=== PATIENT | female | born 1935 | race Caucasian/White ===

== ENCOUNTER 2018-04-10 14:59 | Emergency (ER) | payer MEDICARE, MEDICAID ==
--- NOTE | 2018-04-10 15:53 | RAD ---
HISTORY: Choking COMPARISONS: August 25, 2014 VIEWS: 4: Frontal dual-energy and lateral views of the chest. FINDINGS: CARDIOMEDIASTINAL SILHOUETTE: The cardiomediastinal silhouette is normal. TRAVIS: The travis are normal. PLEURA: The costophrenic angles are sharp. No pleural abnormalities are noted. LUNG PARENCHYMA: The lungs are clear. ABDOMEN: The upper abdomen is clear. There is no subphrenic gas. BONES AND SOFT TISSUES: Degenerative changes are noted along the spine. OTHER: None. IMPRESSION: NO ACTIVE CARDIOPULMONARY DISEASE.
--- NOTE | 2018-04-10 15:54 | ED ---
Respiratory - HPI Summary HPI Summary: Patient is an 83-year-old who presents emergency department after a choking episode on was wasabi just prior to arrival. He shouldn't caregiver who is present states that patient has poor vision and accidentally put a spoonful of wasabi in her mouth that they had with lunch. Caregiver notes she spit it out but started coughing, sweating, and lips turned blue. Her symptoms quickly resolved. In the ER she is back at baseline and has no complaints. Symptoms are mild in severity. No current modifying factors. - History of Current Complaint Chief Complaint: EDGeneral Stated Complaint: CHOKING Time Seen by Provider: 04/10/18 15:16 Hx Obtained From: Patient, Family/Salt Cutter Pain Intensity: 0 - Allergy/Home Medications Allergies/Adverse Reactions: Allergies Allergy/AdvReac Type Severity Reaction Status Date / Time MS Clindamycin [Clindamycin] Allergy Mild Hives Verified 04/10/18 15:16 MS Sulfamethoxazole Allergy Mild Hives Verified 04/10/18 15:16 w/Trimethoprim [From Bactrim] Penicillins Allergy Hives Verified 04/10/18 15:46 PMH/Surg Hx/FS Hx/Imm Hx Previously Healthy: Yes Endocrine/Hematology History: Reports: Hx Diabetes - IDDDM, Hx Thyroid Disease - Hypothyroid Denies: Hx Sickle Cell Disease, Hx Unexplained Bleeding Cardiovascular History: Reports: Hx Angina, Hx Hypercholesterolemia, Hx Hypertension - WELL CONTROLLED WITH MEDICATION Denies: Hx Auto Implanted Cardiovert Defib, Hx Cardiac Arrest, Hx Pacemaker/ ICD Respiratory History: Reports: Hx Pneumonia Denies: Hx Asthma, Hx Chronic Obstructive Pulmonary Disease (COPD), Hx Seasonal Allergies, Hx Sleep Apnea, Other Respiratory Problems/Disorders History: Denies: Hx Renal Disease, Other Problems/Disorders Musculoskeletal History: Reports: Hx Arthritis - bilateral legs below hips, Hx Gout, Hx Tendonitis Denies: Hx Osteoporosis Sensory History: Reports: Hx Cataracts, Hx Vision Problem, Hx Hearing Aid Denies: Hx Contacts or Glasses Opthamlomology History: Reports: Hx Cataracts, Hx Vision Problem Denies: Hx Contacts or Glasses Neurological History: Reports: Hx Nerve Disease, Hx Seizures Denies: Hx Developmental Delay, Hx Migraine, Hx Spinal Cord Injury, Other Neuro Impairments/Disorders Psychiatric History: Denies: Hx Panic Disorder - Surgical History Surgery Procedure, Year, and Place: Ear surgeries, 3 on left, 1 on right-OVER 40 YEARS AGO STATES ( NO MRIs UNLESS OP NOTE CAN BE OBTAINED- {SS}). Left knee surgery. Appendectomy. Tubal ligation. 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 Hx Anesthesia Reactions: No Infectious Disease History: No Infectious Disease History: Denies: Hx Hepatitis, Hx Human Immunodeficiency Virus (HIV), Hx Shingles, Hx Tuberculosis, Traveled Outside the [place] in Last 30 Days - Social History Occupation: Retired Lives: With Family Alcohol Use: None Substance Use Type: Reports: None Smoking Status (MU): Former Smoker Review of Systems Cardiovascular: Negative Negative: Palpitations, Chest Pain Respiratory: Negative Negative: Shortness Of Breath, Cough Gastrointestinal: Negative Negative: Abdominal Pain, Vomiting, Nausea Neurological: Negative All Other Systems Reviewed And Are Negative: Yes Physical Exam Triage Information Reviewed: Yes Vital Signs On Initial Exam: Initial Vitals Temp Pulse Resp BP Pulse Ox 98.6 F 78 18 135/74 98 04/10/18 15:12 04/10/18 15:12 04/10/18 15:12 04/10/18 15:12 04/10/18 15:12 Vital Signs Reviewed: Yes Appearance: Positive: Well-Appearing - Pt. sitting in chair in NAD. Pleasant. Caregiver and family present. Skin: Positive: Warm, Dry Head/Face: Positive: Normal Head/Face Inspection Eyes: Positive: Normal, EOMI Neck: Positive: Supple Respiratory/Lung Sounds: Positive: Clear to Auscultation, Breath Sounds Present Cardiovascular: Positive: Normal, RRR Neurological: Positive: Normal, CN Intact II-III Psychiatric: Positive: Affect/Mood Appropriate Diagnostics - Vital Signs Vital Signs Temp Pulse Resp BP Pulse Ox 04/10/18 15:12 98.6 F 78 18 135/74 98 - Laboratory Lab Statement: Any lab studies that have been ordered have been reviewed, and results considered in the medical decision making process. Disposition - Course Course Of Treatment: Pt. presenting after having a choking episode on wasabi. She is back to baseline in the ER and has no complaints. VS are stable. Did obtain CXR to evaluate for possible aspiration or FB. Xray is negative for acute findings. Pt. was able to drink water without difficulty. Will dc home stable. To return to ER if sxs change or worsen. - Diagnoses Provider Diagnoses: Choking episode Discharge - Sign-Out/Discharge Documenting (check all that apply): Patient Departure - Discharge Plan Condition: Good Disposition: HOME Referrals: Juwan Mckeon MD [Primary Care Provider] - Additional Instructions: Follow up with PCP as needed Return to ER if symptoms change or worsen - Billing Disposition and Condition Condition: GOOD Disposition: Home
[2018-04-10 16:26] VITALS: BP 122/54
== END 2018-04-10 16:25 | disposition home or self-care (01) ==
LOC: ED 14:59
DX: R09.89 Other specified symptoms and signs involving the circulatory and respiratory systems (principal); Z87.891 Personal history of nicotine dependence; Z88.0 Allergy status to penicillin; Z88.2 Allergy status to sulfonamides; Z88.3 Allergy status to other anti-infective agents
CPT/HCPCS: 71046; 99282

== ENCOUNTER 2019-04-06 11:32 | Inpatient (IN) | payer MEDICARE, MEDICAID ==
--- NOTE | 2019-04-06 11:54 | ED ---
Neurological HPI - HPI Summary HPI Summary: This patient is an 84 year old F w a hx of DM, seizures, and arthritis BIBA to ED via EMS with a chief complaint of slurred speech since last night worsening this morning. Patient has fallen three times in the past two days. Patient states she feels weak and that her legs giving out and feeling weak. Patient AAOX3 but earlier thought today is Sunday, but it is Sunday. Patient reports paraspinal neck pain and BLE pain 2/2 arthritis. Normally ambulates with a walker. She has a home care physical therapist 8 hours of the day that helps her out. Patient denies cough, fever, abdominal pain, headache, blurry vision. - History of Current Complaint Chief Complaint: EDWeakness Stated Complaint: FALL WEAKNESS, Hx Obtained From: Patient, Family/Public Opinion Survey Taker Onset/Duration: Started days ago - Last night, Still Present, Worse Since Timing: Constant Pain Intensity: 0 Pain Scale Used: 0-10 Numeric Character: Weak, Motor Weakness, Impaired Speech Aggravating: Nothing Alleviating: Nothing Associated Signs and Symptoms: Positive: Weakness, Impaired Speech, Neck Pain/ Stiffness. Negative: Headache, Fever - Allergy/Home Medications Allergies/Adverse Reactions: Allergies Allergy/AdvReac Type Severity Reaction Status Date / Time clindamycin Allergy Hives Verified 04/06/19 12:48 Penicillins Allergy Hives Verified 04/10/18 15:46 sulfamethoxazole Allergy Hives Verified 04/06/19 12:48 Home Medications: Home Medications Acetaminophen [Acetaminophen Extra Strength] 500 mg PO Q6H PRN 04/06/19 [ History Confirmed 04/06/19] Ascorbic Acid TAB* [Vitamin C TAB*] 500 mg PO DAILY 04/06/19 [History Confirmed 04/06/19] Calcium Carbonate/Vitamin D3 [Calcium Carbonate/Vitamin] 1 tab PO BID 04/06/19 [ History Confirmed 04/06/19] Cholecalciferol TAB* [Vitamin D TAB*] 2,000 units PO DAILY 04/06/19 [History Confirmed 04/06/19] PMH/Surg Hx/FS Hx/Imm Hx Endocrine/Hematology History: Reports: Hx Diabetes - IDDDM, Hx Thyroid Disease - Hypothyroid Denies: Hx Sickle Cell Disease, Hx Unexplained Bleeding Cardiovascular History: Reports: Hx Angina, Hx Hypercholesterolemia, Hx Hypertension - WELL CONTROLLED WITH MEDICATION Denies: Hx Auto Implanted Cardiovert Defib, Hx Cardiac Arrest, Hx Pacemaker/ ICD Respiratory History: Reports: Hx Pneumonia Denies: Hx Asthma, Hx Chronic Obstructive Pulmonary Disease (COPD), Hx Seasonal Allergies, Hx Sleep Apnea, Other Respiratory Problems/Disorders History: Denies: Hx Renal Disease, Other Problems/Disorders Musculoskeletal History: Reports: Hx Arthritis - bilateral legs below hips, Hx Gout, Hx Tendonitis Denies: Hx Osteoporosis Sensory History: Reports: Hx Cataracts, Hx Vision Problem, Hx Hearing Aid Denies: Hx Contacts or Glasses Opthamlomology History: Reports: Hx Cataracts, Hx Vision Problem Denies: Hx Contacts or Glasses Neurological History: Reports: Hx Nerve Disease, Hx Seizures Denies: Hx Developmental Delay, Hx Migraine, Hx Spinal Cord Injury, Other Neuro Impairments/Disorders Psychiatric History: Denies: Hx Panic Disorder - Surgical History Surgery Procedure, Year, and Place: Ear surgeries, 3 on left, 1 on right-OVER 40 YEARS AGO STATES ( NO MRIs UNLESS OP NOTE CAN BE OBTAINED- {SS}). Left knee surgery. Appendectomy. Tubal ligation. 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 Hx Anesthesia Reactions: No Infectious Disease History: No Infectious Disease History: Denies: Hx Hepatitis, Hx Human Immunodeficiency Virus (HIV), Hx Shingles, Hx Tuberculosis, Traveled Outside the [place] in Last 30 Days - Family History Known Family History: Positive: Cardiac Disease, Diabetes, Other - Cancer - Social History Alcohol Use: None Hx Substance Use: No Substance Use Type: Reports: None Hx Tobacco Use: Yes Smoking Status (MU): Former Smoker Review of Systems Negative: Fever Negative: Blurred Vision Negative: Cough Negative: Abdominal Pain Musculoskeletal: Other - Neck pain Positive: Weakness, Slurred Speech. 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 (-) JVD, (-) Stridor, (-) Nuchal rigidity Cardio: Rhythm regular, rate normal, Heart sounds normal; Intact distal pulses; Radial pulses are 2+ and symmetric. (-) Murmur Pulmonary/Chest wall: Effort normal. (-) Respiratory distress, (-) Wheezes, (-) Rales Abd: Soft, (-) tenderness, (-) Distension, (-) Guarding, (-) Rebound Musculoskeletal: paraspinal and midline C-spine tenderness, no TL-spine tenderness Lymph: (-) Cervical adenopathy Neuro: Alert, Oriented x3, dysarthria otherwise CN 2-12 grossly intact, BUE BLE 5/5 strength, SILT. Gait deferred. Psych: Mood and affect Normal GCS: 15 Triage Information Reviewed: Yes Vital Signs On Initial Exam: Initial Vitals Temp Pulse Resp BP Pulse Ox 98.5 F 101 16 154/66 98 04/06/19 11:38 04/06/19 11:38 04/06/19 11:38 04/06/19 11:38 04/06/19 11:38 Vital Signs Reviewed: Yes Diagnostics - Vital Signs Vital Signs Temp Pulse Resp BP Pulse Ox 04/06/19 11:38 98.5 F 101 16 154/66 98 - Laboratory Result Diagrams: 04/06/19 12:32 04/06/19 12:32 Lab Statement: Any lab studies that have been ordered have been reviewed, and results considered in the medical decision making process. - Radiology CXR Radiology Interpretation Completed By: Radiologist Summary of Radiographic Findings: Stigmata of obstructive lung disease. No traumatic injury or acute pulmonary or cardiac process evident. Dr. Lomas has reviewed this radiology report. Pelvix XR Radiology Interpretation Completed By: Radiologist Summary of Radiographic Findings: Negative for fracture. Dr. Lomas has reviewed this radiology report. Lumbar XR Radiology Interpretation Completed By: Radiologist Summary of Radiographic Findings: Negative for lumbar sacral spine fracture. Dr. Lomas has reviewed this radiology report. Thoracic XR Radiology Interpretation Completed By: Radiologist Summary of Radiographic Findings: No radiographic evidence for traumatic injury of the thoracic lumbar junction. Dr. Lomas has reviewed this radiology report. - CT Brain CT Interpretation Completed By: Radiologist Summary of CT Findings: 1. Involutional change and stigmata of chronic small vessel ischemic disease. 2. No traumatic injury or acute intracranial process evident. Dr. Lomas has reviewed this radiology report. C-spine CT Interpretation Completed By: Radiologist Summary of CT Findings: No CT evidence for traumatic cervical spine injury. Dr. Lomas has reviewed this radiology report. - EKG 1145 Cardiac Rate: NL - 98 BPM EKG Rhythm: Sinus Rhythm ST Segment: Normal Ectopy: None Summary of EKG Findings: An EKG at 1145 reveals normal sinus rhythm 98 BPM, nml axis, nml intervals. No STEMI. No acute changes. NIH Scale - NIH Scale Level of Consciousness: Alert/Keenly Responsive Ask Patient the Month and His/Her Age: Both Correct Ask Pt to Open/Close Eyes and Press Setter/Release Non-Paretic Hand: Both Correctly Best Gaze (Only Horizontal Eye Movement): Normal Visual Field Testing: No Visual Loss Facial Paresis-Pt to Smile & Close Eyes or Grimace Symmetry: Normal/Symmetrical Motor Function - Right Arm: No Drift-Holds 10 Seconds Motor Function - Left Arm: No Drift-Holds 10 Seconds Motor Function - Right Leg: No Drift-Holds 10 Seconds Motor Function - Left Leg: No Drift-Holds 10 Seconds Limb Ataxia-Must be out of Proportion to Weakness Present: Absent Sensory (Use Pinprick to Test Arms/Legs/Trunk/Face): Normal Best Language (Describe Picture, Name Items): No Aphasia Dysarthria (Read Several Words): Slurs Some Words Extinction and Inattention: No Abnormality Total Score: 1 Re-Evaluation - Re-Evaluation First Eval Re-Evaluation Time: 14:10 Comment: Discussed results with caregiver and patient, patient will be admitted to [facility]. Patient understands and agrees with this plan. Course/Dx - Course Course Of Treatment: 84-year-old female with history of diabetes who presents with weakness and dysarthria. NIH stroke scale of 1 for dysarthria, last known normal greater than 12 hours ago. We'll check a head CT as well as labs. We will also check a CT of the cervical spine given reported neck pain, and thoracic and lumbar spine because of her falls. Currently alert and oriented 3. - Diagnoses Provider Diagnoses: Falls, Weakness, Dysarthria - Physician Notifications Discussed Care Of Patient With: Elton Gomez Time Discussed With Above Provider: 14:15 Instructed by Provider To: Other - Discussed patient case with Dr. Gomez, neuro, who agrees with plan for MRI and stroke workup. At 1440 discussed patient case with Dr. Blanchard, hospitalist, who accepted the patient for admission to [facility]. Discharge - Sign-Out/Discharge Documenting (check all that apply): Patient Departure - Admit by Dr. Blanchard Patient Received Moderate/Deep Sedation with Procedure: No - Discharge Plan Condition: Fair Disposition: ADMITTED TO [facility] - Billing Disposition and Condition Condition: FAIR Disposition: Admitted to [facility] - Attestation Statements Document Initiated by Brianibe: Yes Documenting Scribe: Yasmani Ramírez Provider For Whom Brianibe is Documenting (Include Credential): Magda Lomas MD Scribe Attestation: IYasmani, scribed for Magda Lomas MD on 04/06/19 at 2048. Scribe Documentation Reviewed: Yes Provider Attestation: The documentation as recorded by the Yasmani tyson accurately reflects the service I personally performed and the decisions made by me, Magda Lomas MD Status of Scribe Document: Viewed
--- OUTSIDE RECORDS SUMMARY | 2019-04-06 11:58 | XMS REPORT | Continuity of Care Document ---
:1935 External Reference #:[id number] Author Name Yanci Gallagher Care Team Providers Name Role Phone Juwan Mckeon III, MD Primary Care Physician Unavailable Payers Date Identification Numbers Payment Provider Subscriber Effective: 2012 Policy Number: [id number] Medicare Ken Wandy PayID: [id number] [address] [place] [address] Effective: 2012 Policy Number: [id number] Medicaid Ken Wandy PayID: [id number] [address] [place] [address] Problems Active Problems Provider Date Type 2 diabetes mellitus Juwan Mckeon M.D. Onset: 06/11/2012 Hypothyroidism Juwan Mckeon M.D. Onset: 06/11/2012 Pure hypercholesterolemia Juwan Mckeon M.D. Onset: 06/11/2012 Hearing loss Juwan Mckeon M.D. Onset: 07/12/2012 Total urinary incontinence Juwan Mckeon M.D. Onset: 01/13/2013 Family History Date Family Member(s) Observation Comments Father due to Accidental () - drowned age 38 Mother due to Gastric Cancer () - age 59; ? cancer vs heart attack First Brother due to Lung Cancer () - age 45 Social History Type Date Description Comments Sex Unknown ETOH Use 06/11/2013 Denies alcohol use Tobacco Use Start: Unknown End: Patient is a former 1/4 ppd for 10 yrs; Unknown smoker quit age 27 Smoking Status Reviewed: 07/09/19 Patient is a former 1/4 ppd for 10 yrs; smoker quit age 27 Exercise Exercises regularly walks on [facility]; uses a Type/Frequency wheeled walker for stability Allergies, Adverse Reactions, Alerts Active Allergies Reaction Severity Comments Date Bactrim vomiting 06/11/2012 Clindamycin rash 06/11/2012 Penicillins 10/24/2013 Medications Active Medications SIG Qnty Indications Ordering Date Provider Lamont Flextouch Juwan E. 03/04/2019 Sergey Mckeon 200Unit/ML Solution Pen-Inject Duloxetine HCL 1 by mouth every 30caps E11.9 Juwan E. 03/04/2019 60mg day Sergey Mckeon Caps DR Hernandez Chair Lift 1units Juwan E. 01/31/2019 Sergey Mckeon Tresiba Flextouch 52 units in the in 15ml Juwan E. 10/01/2017 the morning;please Sergey Mckeon 100Unit/ML Solution call when rx is Pen-Inject ready [phone] Calcium take 2 tablets by 60tabs Juwan E. 09/19/2017 Carbonate-Vitamin D mouth once daily Sergey Mckeon [id number] Tablets Famotidine 1 by mouth every 30tabs K21.9 Juwan E. 04/16/2017 40mg day Sergey Mckeon Tablets Walker 4 wheeled walker Juwan E. 04/13/2017 with seat, hand Sergey Mckeon brakes Ra Alcohol Swabs once or twice a day 100units Juwan E. 08/23/2016 70% with home sugar Sergey Mckeon Pads checks as directed Lisinopril 1 by mouth every 30tabs E11.9 Juwan E. 08/17/2016 10mg day Sergey Mckeon Tablets Tylenol as needed Juwan E. 02/02/2015 325mg Tablets Sergey Mckeon Disposable Underpads use as needed for 198units Juwan E. 10/15/2014 Super Size 30"X36" incontinence Sergey Mckeon 30"X36" [facility] Freestyle Lancets daily and as needed 100units Juwan E. 04/16/2014 dx 250.00 Sergey Mckeon [facility] Ra Vitamin D-3 1 by mouth weekly, 4caps Juwan Zamora 01/27/2014 take on sunday Sergey Mckeon 2000Unit Capsules BD U/F Short Pen use as directed 100units Ghada Rogers MD 01/22/2014 [id number] Freestyle Lancet for use with E11.9 Juwan Zamora 01/14/2014 Page Freestyle lancets Sergey Mckeon Simvastatin 1 by mouth every 90tabs Juwan Zamora 01/14/2014 40mg night at bedtime Sergey Mckeon Tablets Calcium 600+D High take 2 tablets by 60tabs Juwan Zamora 01/05/2014 Potency mouth daily Sergey Mckeon [id number] Tablets Sudafed Pe Sinus take as directed Juwan Zamora 12/02/2013 Pressure+ Pain Sergey Mckeon Maximum Strength 5-325mg Tablets [place] 1units Juwan Zamora 11/10/2013 Container/Half Sergey Mckeon Gallon 1/2 Gal Misc Triamcinolone apply to affected 15gm 705.81 Juwan Zamora 10/24/2013 Acetonide area qd-qid Sergey Mckeon 0.1% Cream Depend Protective use as needed dx 68units 788.30 Juwan Zamora 07/17/2013 Underwear Large code: 788.37 Total Sergey Mckeon Female Misc Urinary incontience Levothyroxine Sodium take 1 tablet once 90tabs Juwan Zamora 03/05/2013 daily Sergey Mckeon 50mcg Tablets Regular Four Wheel 1units Juwan Zamora 01/14/2013 Enrique Mckeon M.D. Metformin HCL ER take 2 tablet by 60tabs Juwan Zamora 11/21/2012 mouth once daily Sergey Mckeon 500mg Tablets ER 24HR Insulin as directed 100units Juwan Zamora 09/04/2012 Syringe/1ML/31G X Sergey Mckeon 5/16" 31G X 5/16" 1 ML Misc Pen [place] use with lantus 50units Brittany Miriam, 07/02/2012 31GX5/16" subq qday N.P. 31G X 8 mm Misc Freestyle Lite Blood check fingerstick 1units E11.9 Jose Alejandro Marquez 2011 Glucose Monitoring daily Sergey Petty,FACP System Device Freestyle Lite Test use as directed 100units Juwan Zamora 06/11/2012 Sergey Mckeon Strip Vitamin C 1 by mouth every Unknown 500mg day Capsules Vitamin B-12 1 by mouth every Unknown 500mcg day Tablets History Medications Doxycycline Hyclate 1 by mouth twice a 14tabs Juwan Zamora 02/17/2018 - 100mg day for 7 days Sergey Mckeon 04/22/2018 Tablets Duloxetine HCL take 1 capsule by 30caps E11.9 Juwan Zamora 02/14/2018 - 30mg Caps mouth daily Sergey Mckeon 03/04/2019 DR David Mckeon one by nouth twice 6tabs Juwan Zamora 07/16/2017 - 250mg Tablets daily for 7 days Sergey Mckeon 08/28/2017 [facility] Juwan Zamora 04/19/2017 - 250mg Tablets daily for 7 days Sergey Mckeon 08/28/2017 Butalbital/Acetaminoph 1-2 tabs every 4 30tabs R51 Juwan Zamora 04/16/2017 - en/Caffeine hrs; max 6 tabs a Sergey Mckeon 08/28/2017 50-325-40mg day Tablets Zyrtec Allergy 1 by mouth every 30tabs J00 Dimitry Carballo, 08/12/2015 - 10mg day for the next [employer] 08/26/2015 Tablets 3-4 weeks, then as needed Guaifenesin ER 1 by mouth twice a 14tabs R05 Dimitry Carballo 08/12/2015 - 600mg day [employer] 08/19/2015 Tablets ER 12HR Lisinopril 1 by mouth every 90tabs E11.9 Thien 08/09/2015 - 5mg Tablets day Sergey Dimas 08/17/2016 Azithromycin 2 tabs by mouth on 6tabs J02.9 Dimitry Carballo 07/05/2015 - 250mg day 1; 1 tab by [employer] 07/10/2015 Tablets mouth every day on days 2-5 Nystatin swish and swallow 225ml B37.0 Dimitry Carballo, 07/05/2015 - [id number] 5ml four times a [employer] 07/15/2015 Suspension day x's 10 days Ciprofloxacin HCL apply 3 drops in 5cc Juwan Zamora 03/09/2015 - 0.3% effected eye bid x Sergey Mckeon 12/06/2015 Solution 7 days Calcium High Potency + Take 2 Tablets 60tabs Brittany 07/21/2014 - Vitamin D Daily [facility], 02/15/2017 [id number] N.P. Tablets Alcohol Swabs use as directed for [place] Zamora 03/11/2014 - Pads dm testing Sergey Mckeon 08/23/2016 Vitamin D-1000 Maximum 1 by mouth every 90tabs Juwan Zamora 01/14/2014 - Strength day Sergey Mckeon 07/01/2014 1000Unit Tablets Calcium 500+D High by mouth twice a 60tabs Brittany 01/05/2014 - Potency day [facility], 01/05/2014 [id number] N.P. Tablets Azithromycin 2 tabs po qd x1 6tabs 466.0 Brittany 12/16/2013 - 250mg day, 1 tab po qd x [facility], 01/14/2014 Tablets 4 days N.P. Fluticasone Propionate 2 spray in each 1bottle 466.0 Brittany 12/16/2013 - nostril in in the [facility], 07/01/2014 50mcg/Act Suspension morning N.P. Benadryl 1 tab prn qd 30tabs Juwan Zamora 05/27/2013 - 25mg Tablets Sergey Mckeon 07/17/2013 Simvastatin 1 po qhs 90tabs Juwan Zamora 03/05/2013 - 40mg Tablets Sergey Mckeon 07/17/2013 Diabetic Shoes And Fit appropriately Juwan Zamora 02/12/2013 - Inserts Sergey Mckeon 08/17/2016 Etoh Prep Pads for DM testing [place] Zamora 01/24/2013 - Sergey Mckeon 03/11/2014 Freestyle Lite Test use as directed qd 100[place] Zamora 01/24/2013 - Strip or prn Sergey Mckeon 01/24/2013 dx: 250.02 Depend Protective use 3 times daily 120units 788.30 Juwan Zamora 01/24/2013 - Underwear Large Female or as needed Sergey Mckeon 07/17/2013 Misc Depend Silhouette change as needed 9Packs 788.30 Juwan Zamora 12/17/2012 - Briefs For Women S/M 3-4 times per day Sergey Mckeon 01/24/2013 Maximum Absorb Misc Metformin HCL 1 po q am 30tabs Juwan Zamora 11/21/2012 - 500mg Sergey Mckeon 11/21/2012 Tablets Lantus Solostar 52 units in Am 15units Juwan Zamora 10/29/2012 - Sergey Mckeon 10/01/2017 100Unit/ML Solution Pen-Inject Lantus 40 units q evening 3vials Juwan Zamora 08/30/2012 - 100Unit/ML Sergey Mckeon 10/29/2012 Solution Levothyroxine Sodium po qd 90tabs Juwan Zamora 06/13/2012 - Sergey Mckeon 01/29/2013 50mcg Tablets Benadryl 1 po at hs 30caps Unknown - 25mg Capsules 07/01/2014 Levothyroxine Sodium 1 po q am 90tabs Unknown - 03/05/2013 60mcg Tablets Simvastatin 1 po qhs 30tabs Unknown - 80mg Tablets 01/14/2014 Cipro 1 po bid X 7 days 20tabs Unknown - 500mg Tablets (discharged 09/04/2013 01/23/13) Cholecalciferol po weekly Unknown - 2000Units 01/27/2014 Tablet Lantus Solostar 25 units subq 15ml Brittany - qevening Miriam, 08/30/2012 100Unit/ML Solution N.P. Humulin R siding scale 1units Juwan Zamora - 100Unit/ML Sergey Mckeon 07/12/2012 Solution Vitamin D 1 by mouth every 90caps Juwan Zamora - 1999Unsunday. Sergey Mckeon 01/14/2014 Capsules Ibuprofen 1/2 tab by mouth 60tabs Jose Alejandro Marquez - 800mg Tablets every 6 hours, as Jovanny, 02/02/2015 needed for pain Sergey,[place]AC[place] Levothyroxine Sodium 1 po qd 30tabs Unknown - 06/13/2012 75mcg Tablets Simvastatin 1 po qhs 90tabs Juwan Zamora - 40mg Tablets Sergey Mckeon 01/29/2013 Medications Administered in Office Medication SIG Qnty Indications Ordering Provider Date Influenza,Unspecified Unknown 04/12/2018 Injection Shingrix no bill inj-pt brought in Unknown 04/12/2018 Injection Influenza Virus Vaccine Unknown 05/27/2015 Injection Immunizations CPT Code Status Date Vaccine Lot # [id number] Given 04/15/2018 Influenza Virus Vaccine, Quadrivalent, Split, Preservative Free [id number] Given 05/31/2016 Influ Virus Vaccine, Quadrivalent, Split Virus, [place] [id number] [address] Given 02/09/2015 Pneumococcal Conjugate Vaccine 13 Valent For [id number] Intramuscular Use [id number] Given 05/13/2014 Fluvirin Im 3Yrs And Older 48548 Given 05/13/2014 Influenza Virus Vaccine, Quadrivalent, Split, [id number] Preservative Free 41423 Given 06/11/2013 Flu Vaccine Split Virus Preservative Free For [id number] Indiv 3Yr Older Q2038 Given 06/11/2012 Fluzone Vaccine [id number] Given 08/28/2011 Pneumonia Vaccine 17219 Given 08/28/2011 Tetanus And Diptheria (Td) For Adult Use Preservative Free Vital Signs Date Vital Result Comment 03/04/2019 1:06pm Height 62.5 inches 5'2.50" Weight 152.00 lb Heart Rate 95 /min BP Systolic Sitting 139 mmHg BP Diastolic Sitting 66 mmHg BMI (Body Mass Index) 27.4 kg/m2 09/03/2018 1:24pm Height 62.5 inches 5'2.50" Weight 153.00 lb Heart Rate 78 /min BP Systolic Sitting 146 mmHg BP Diastolic Sitting 84 mmHg O2 % BldC Oximetry 97 % BMI (Body Mass Index) 27.5 kg/m2 04/22/2018 1:09pm Height 62.5 inches 5'2.50" Weight 150.00 lb Heart Rate 86 /min BP Systolic Sitting 140 mmHg BP Diastolic Sitting 80 mmHg O2 % BldC Oximetry 97 % BMI (Body Mass Index) 27.0 kg/m2 02/14/2018 11:44am Height 62.5 inches 5'2.50" Weight 152.38 lb Heart Rate 73 /min BP Systolic Sitting 128 mmHg BP Diastolic Sitting 68 mmHg O2 % BldC Oximetry 97 % BMI (Body Mass Index) 27.4 kg/m2 08/29/2017 1:30pm Height 62.5 inches 5'2.50" Weight 151.00 lb Heart Rate 86 /min BP Systolic Sitting 122 mmHg BP Diastolic Sitting 60 mmHg Body Temperature 99.0 F O2 % BldC Oximetry 98 % BMI (Body Mass Index) 27.2 kg/m2 04/16/2017 12:39pm Weight 149.00 lb with shoes Heart Rate 86 /min BP Systolic 120 mmHg BP Diastolic 62 mmHg Body Temperature 98.2 F O2 % BldC Oximetry 97 % 02/15/2017 10:27am Weight 153.12 lb Heart Rate 83 /min BP Systolic 150 mmHg BP Diastolic 72 mmHg Body Temperature 97.6 F O2 % BldC Oximetry 97 % 08/17/2016 10:12am Height 61.25 inches 5'1.25" Weight 149.12 lb Heart Rate 88 /min BP Systolic 130 mmHg BP Diastolic 60 mmHg Body Temperature 98.1 F O2 % BldC Oximetry 98 % BMI (Body Mass Index) 27.9 kg/m2 04/26/2016 4:18pm Height 61.25 inches 5'1.25" Weight 156.38 lb Heart Rate 97 /min BP Systolic 150 mmHg BP Diastolic 60 mmHg Body Temperature 99.4 F O2 % BldC Oximetry 97 % BMI (Body Mass Index) 29.3 kg/m2 02/16/2016 10:59am Height 61.25 inches 5'1.25" Weight 152.00 lb Heart Rate 92 /min BP Systolic Sitting 163 mmHg BP Diastolic Sitting 82 mmHg Body Temperature 98.6 F BMI (Body Mass Index) 28.5 kg/m2 12/06/2015 4:40pm Height 61.25 inches 5'1.25" Weight 150.00 lb Heart Rate 98 /min BP Systolic Sitting 110 mmHg BP Diastolic Sitting 54 mmHg Respiratory Rate 14 /min Body Temperature 100.5 F O2 % BldC Oximetry 96 % BMI (Body Mass Index) 28.1 kg/m2 09/27/2015 10:15am Weight 154.00 lb Heart Rate 83 /min BP Systolic Sitting 126 mmHg BP Diastolic Sitting 64 mmHg O2 % BldC Oximetry 97 % 08/12/2015 2:34pm Weight 155.12 lb Heart Rate 80 /min BP Systolic Sitting 126 mmHg BP Diastolic Sitting 54 mmHg Respiratory Rate 14 /min Body Temperature 97.8 F tympanic O2 % BldC Oximetry 97 % room air 08/09/2015 11:32am Weight 156.00 lb Heart Rate 99 /min BP Systolic Sitting 150 mmHg BP Diastolic Sitting 74 mmHg Body Temperature 98.7 F 07/05/2015 11:32am Height 61.25 inches 5'1.25" Weight 157.00 lb Heart Rate 99 /min BP Systolic Sitting 164 mmHg BP Diastolic Sitting 70 mmHg Body Temperature 98.4 F O2 % BldC Oximetry 98 % BMI (Body Mass Index) 29.4 kg/m2 02/09/2015 11:03am Height 61.25 inches 5'1.25" Weight 147.75 lb Heart Rate 97 /min BP Systolic Sitting 134 mmHg BP Diastolic Sitting 68 mmHg O2 % BldC Oximetry 99 % BMI (Body Mass Index) 27.7 kg/m2 11/25/2014 4:19pm Weight 147.25 lb Heart Rate 96 /min BP Systolic Sitting 136 mmHg BP Diastolic Sitting 60 mmHg Body Temperature 98.0 F O2 % BldC Oximetry 96 % 10/15/2014 11:50am Weight 144.00 lb Heart Rate 90 /min BP Systolic Sitting 140 mmHg BP Diastolic Sitting 76 mmHg O2 % BldC Oximetry 96 % 09/11/2014 11:31am Weight 144.00 lb Heart Rate 92 /min BP Systolic Sitting 132 mmHg BP Diastolic Sitting 60 mmHg Body Temperature 99.4 F 07/01/2014 11:25am Weight 151.00 lb Heart Rate 88 /min BP Systolic Sitting 120 mmHg BP Diastolic Sitting 64 mmHg Body Temperature 98.8 F 05/13/2014 11:04am Weight 150.00 lb Heart Rate 96 /min BP Systolic Sitting 130 mmHg BP Diastolic Sitting 58 mmHg Body Temperature 97.3 F 04/09/2014 11:04am Weight 151.00 lb Heart Rate 100 /min BP Systolic Sitting 130 mmHg BP Diastolic Sitting 20 mmHg 01/14/2014 1:58pm Height 62.25 inches 5'2.25" Weight 146.25 lb Heart Rate 92 /min BP Systolic Sitting 138 mmHg BP Diastolic Sitting 72 mmHg Body Temperature 98.4 F BMI (Body Mass Index) 26.5 kg/m2 12/16/2013 11:24am Weight 151.00 lb Heart Rate 90 /min BP Systolic Sitting 140 mmHg BP Diastolic Sitting 58 mmHg Body Temperature 98.7 F O2 % BldC Oximetry 97 % 10/24/2013 10:57am Weight 147.00 lb Heart Rate 96 /min BP Systolic Sitting 120 mmHg BP Diastolic Sitting 62 mmHg Body Temperature 97.4 F O2 % BldC Oximetry 98 % 09/04/2013 1:49pm Weight 151.50 lb Heart Rate 98 /min BP Systolic Sitting 130 mmHg BP Diastolic Sitting 48 mmHg Body Temperature 98.3 F O2 % BldC Oximetry 97 % 07/17/2013 11:02am Height 61.75 inches 5'1.75" Weight 146.75 lb Heart Rate 92 /min BP Systolic Sitting 140 mmHg BP Diastolic Sitting 70 mmHg BMI (Body Mass Index) 27.1 kg/m2 06/11/2013 2:18pm Weight 146.25 lb Heart Rate 54 /min BP Systolic Sitting 126 mmHg BP Diastolic Sitting 52 mmHg 04/15/2013 1:59pm Weight 145.00 lb Heart Rate 88 /min BP Systolic Sitting 138 mmHg BP Diastolic Sitting 64 mmHg 01/13/2013 1:39pm Height 62.75 inches 5'2.75" Weight 128.00 lb Heart Rate 92 /min BP Systolic Sitting 136 mmHg BP Diastolic Sitting 68 mmHg BMI (Body Mass Index) 22.9 kg/m2 10/14/2012 1:26pm Height 62.75 inches 5'2.75" Weight 127.00 lb Heart Rate 94 /min BP Systolic Sitting 108 mmHg BP Diastolic Sitting 60 mmHg BMI (Body Mass Index) 22.7 kg/m2 07/12/2012 11:45am Height 62.75 inches 5'2.75" Weight 128.00 lb Heart Rate 100 /min BP Systolic Sitting 152 mmHg BP Diastolic Sitting 86 mmHg BMI (Body Mass Index) 22.9 kg/m2 06/11/2012 1:14pm Height 61.5 inches 5'1.50" Weight 110.00 lb Heart Rate 104 /min BP Systolic Sitting 136 mmHg BP Diastolic Sitting 78 mmHg BMI (Body Mass Index) 20.4 kg/m2 Results Test Date Facility Test Result H/L Range Note Laboratory test 03/04/2019 [facility] In House Hemoglobin A1c 6.2 5-7 finding Urine Microalbumin 08/28/2018 [facility] Ur Microalbumin < 15.[address] (mg/L) [place] [address] [phone] Urine Creatinine 80.06 mg/dL Urine Microalbumin/Creatinine TNP <31 1 Comp Metabolic Panel 08/28/2018 [facility] Sodium 141 mmol/L N 135-[address] [place] [address] [phone] Potassium 4.7 mmol/L N 3.5-5.0 Chloride 103 mmol/L N 101-111 Co2 Carbon Dioxide 30 mmol/L N 22-32 Anion Gap 8 mmol/L N 2-11 Glucose 132 mg/dL High 70-100 Blood Urea Nitrogen 32 mg/dL High 6-24 Creatinine 1.17 mg/dL High 0.51-0.95 BUN/Creatinine Ratio 27.4 High 8-20 Calcium 9.9 mg/dL N 8.6-10.3 Total Protein 6.6 g/dL N 6.4-8.9 Albumin 4.0 g/dL N 3.2-5.2 Globulin 2.6 g/dL N 2-4 Albumin/Globulin Ratio 1.5 N 1-3 Total Bilirubin 0.40 mg/dL N 0.2-1.0 Alkaline Phosphatase 75 U/L N 34-104 Alt 11 U/L N 7-52 Ast 14 U/L N 13-39 Egfr Non- 44.2 >60 Egfr 53.5 >60 2 Lipid Profile 08/28/2018 [facility] Triglycerides 140 mg/dL 3 (Trig/Chol/HDL) [address] [place] [address] [phone] Cholesterol 121 mg/dL 4 HDL Cholesterol 42.7 mg/dL 5 LDL Cholesterol 50 mg/dL 6 Laboratory test 08/28/2018 [facility] Hemoglobin A1c 6.6 % High 4.0-5.[address] (Glyco HGB) [place] [address] [phone] TSH (Thyroid Stim Horm) 3.90 mcIU/mL N 0.34-5.60 Laboratory test 04/10/2018 [facility] Point of Care 95 mg/dL N 70-[address] [place] [address] [phone] Basic Metabolic 03/11/2018 [facility] Sodium 135 mmol/L N 135- [address] [place] [address] [phone] Potassium 4.8 mmol/L N 3.5-5.0 Chloride 96 mmol/L Low 101-111 Co2 Carbon Dioxide 29 mmol/L N 22-32 Anion Gap 10 mmol/L N 2-11 Glucose 123 mg/dL High 70-100 Blood Urea Nitrogen 25 mg/dL High 6-24 Creatinine 1.39 mg/dL High 0.51-0.95 BUN/Creatinine Ratio 18.0 N 8-20 Calcium 10.0 mg/dL N 8.6-10.3 Egfr Non- 36.2 >60 Egfr 43.8 >60 9 Ua Routine 02/14/2018 [facility] Ua Specific [place] 1.010 Ua PH 6 Ua Color yellow Ua Appera clear Ua WBC negative Ua Protein negative Ua Glucose normal Ua Ketones negative Ua Bilirubin negative Ua Urobilinogen normal Ua Nitrite negative Ua Occult Blood negative Urine Culture And 02/14/2018 [facility] Urine Culture SEE 10, [address] [place] [place] [address] BELOW [phone] Laboratory test 02/14/2018 [facility] Hemoglobin A1c 7.4 High 5-7 finding Urine 09/05/2017 [facility] Ur Microalbumin < 15.[address] (mg/L) mg/L Random [place], [place] [id number] [phone] Urine Creatinine 26.00 mg/dL Urine Microalbumin/Creatinine TNP ug/mg <31 12 Laboratory test 09/05/2017 [facility] Glucose 84 mg/dL N 70- 100 13, [address] [place], [place] [id number] [phone] Hemoglobin A1c (Glyco HGB) 6.9 % High 4.0-5.6 15 Lipid Profile 09/05/2017 [facility] Triglycerides 191 mg/dL 16 (Trig/Chol/HDL) [address] [place], [place] [id number] [phone] Cholesterol 120 mg/dL 17 HDL Cholesterol 35.4 mg/dL 18 LDL Cholesterol 46 mg/dL 19 Urinalysis Profile 07/04/2017 [facility] Urine Color Straw [address] [place] [address] [phone] Urine Appearance Clear Urine Specific [place] 1.008 Low 1.010-1.030 Urine pH 5.0 N 5-9 Urine Urobilinogen Negative Negative Urine Ketones Negative Negative Urine Protein Negative Negative Urine Leukocytes Negative Negative Urine Blood Negative Negative Urine Nitrite Negative Negative Urine Bilirubin Negative Negative Urine Glucose 1+(50 mg/dL) Abnormal Negative Urine White Blood Cell Trace(0-5/hpf) Absent Urine Red Blood Cell Absent Absent Urine Bacteria Absent Absent Urine Squamous Epithelial Cell Present Abnormal Absent Urine Culture And 07/04/2017 [facility] Urine Culture SEE RESULT [address] [place] [address] [phone] Urinalysis Profile 05/10/2017 [facility] Urine Color Straw N [address] [place] [address] [phone] Urine Appearance Clear N Urine Specific [place] 1.004 Low 1.010-1.030 Urine pH 6.0 N 5-9 Urine Urobilinogen Negative N Negative Urine Ketones Negative N Negative Urine Protein Negative N Negative Urine Leukocytes Negative N Negative Urine Blood Negative N Negative Urine Nitrite Negative N Negative Urine Bilirubin Negative N Negative Urine Glucose Negative N Negative Laboratory test 04/17/2017 [facility] C Reactive 91.09 mg/L High < 5.[address] [place] [address] [phone] Erythrocyte Sed Rate 99 mm/Hr High 0-40 Lyme Disease Serology Negative N Negative 22 CBC Auto Diff 04/17/2017 [facility] White Blood 6.2 10^3/uL N 3.5-10.[address] [place] [address] [phone] Red Blood Count 3.65 10^6/uL Low 4.0-5.4 Hemoglobin 11.4 g/dL Low 12.0-16.0 Hematocrit 34 % Low 35-47 Mean Corpuscular Volume 93 fL N 80-97 Mean Corpuscular Hemoglobin 31 pg N 27-31 Mean Corpuscular HGB Conc 34 g/dL N 31-36 Red Cell Distribution Width 14 % N 10.5-15 Platelet Count 250 10^3/uL N 150-450 Mean Platelet Volume 10 um3 N 7.4-10.4 Abs Neutrophils 3.9 10^3/uL N 1.5-7.7 Abs Lymphocytes 1.4 10^3/uL N 1.0-4.8 Abs Monocytes 0.7 10^3/uL N 0-0.8 Abs Eosinophils 0.2 10^3/uL N 0-0.6 Abs Basophils 0.1 10^3/uL N 0-0.2 Abs Nucleated RBC 0 10^3/uL N Granulocyte % 62.8 % N 38-83 Lymphocyte % 22.0 % Low 25-47 Monocyte % 11.0 % High 1-9 Eosinophil % 3.3 % N 0-6 Basophil % 0.9 % N 0-2 Nucleated Red Blood Cells % 0 N Urinalysis Profile 04/17/2017 [facility] Urine Color Yellow N [address] [place] [address] [phone] Urine Appearance Clear N Urine Specific [place] 1.008 Low 1.010-1.030 Urine pH 6.0 N 5-9 Urine Urobilinogen Negative N Negative Urine Ketones Negative N Negative Urine Protein Negative N Negative Urine Leukocytes 2+ Abnormal Negative Urine Blood Negative N Negative * * Abnormal Negative 23 Urine Nitrite Negative N Negative Urine Bilirubin Negative N Negative Urine Glucose Negative N Negative Urine White Blood Cell 2+(11-20/hpf) Abnormal Absent Urine Red Blood Cell Trace(0-2/hpf) N Absent Urine Bacteria 3+ Abnormal Absent Urine Squamous Epithelial Cell Present Abnormal Absent Urine Culture And 04/17/2017 [facility] Urine Culture SEE RESULT [address] [place] [address] [phone] Laboratory test 02/15/2017 [facility] Free T4 (Free 0.88 ng/dL N 0.61- [address] DRIVE Thyroxine) 1.12 [place] [address] [phone] TSH (Thyroid Stim Horm) 2.40 mcIU/mL N 0.34-5.60 Comp Metabolic Panel 02/15/2017 [facility] Sodium 139 mmol/L N 133-[address] [place] [address] [phone] Potassium 4.9 mmol/L N 3.5-5.0 Chloride 105 mmol/L N 101-111 Co2 Carbon Dioxide 25 mmol/L N 22-32 Anion Gap 9 mmol/L N 2-11 Glucose 82 mg/dL N 70-100 Blood Urea Nitrogen 26 mg/dL High 6-24 Creatinine 1.01 mg/dL High 0.51-0.95 BUN/Creatinine Ratio 25.7 High 8-20 Calcium 9.9 mg/dL N 8.6-10.3 Total Protein 6.9 g/dL N 6.4-8.9 Albumin 4.2 g/dL N 3.2-5.2 Globulin 2.7 g/dL N 2-4 Albumin/Globulin Ratio 1.6 N 1-3 Total Bilirubin 0.60 mg/dL N 0.2-1.0 Alkaline Phosphatase 62 U/L N 34-104 Alt 11 U/L N 7-52 Ast 14 U/L N 13-39 Egfr Non- 52.6 N >60 Egfr 67.7 N >60 25 Laboratory test 02/15/2017 [facility] Erythrocyte Sed 52 mm/Hr High 0-[address] [place] [address] [phone] C Reactive Protein 7.64 mg/L High < 5.00 26 CBC Auto Diff 02/15/2017 [facility] White Blood 7.9 10^3/uL N 3.5-10.[address] [place] [address] [phone] Red Blood Count 3.87 10^6/uL Low 4.0-5.4 Hemoglobin 11.8 g/dL Low 12.0-16.0 Hematocrit 36 % N 35-47 Mean Corpuscular Volume 93 fL N 80-97 Mean Corpuscular Hemoglobin 30 pg N 27-31 Mean Corpuscular HGB Conc 33 g/dL N 31-36 Red Cell Distribution Width 14 % N 10.5-15 Platelet Count 250 10^3/uL N 150-450 Mean Platelet Volume 10 um3 N 7.4-10.4 Abs Neutrophils 5.0 10^3/uL N 1.5-7.7 Abs Lymphocytes 1.9 10^3/uL N 1.0-4.8 Abs Monocytes 0.6 10^3/uL N 0-0.8 Abs Eosinophils 0.3 10^3/uL N 0-0.6 Abs Basophils 0.1 10^3/uL N 0-0.2 Abs Nucleated RBC 0 10^3/uL N Granulocyte % 63.2 % N 38-83 Lymphocyte % 23.8 % Low 25-47 Monocyte % 7.7 % N 1-9 Eosinophil % 3.9 % N 0-6 Basophil % 1.4 % N 0-2 Nucleated Red Blood Cells % 0 N Laboratory test 02/15/2017 [facility] Hemoglobin A1c 6.9 5-7 finding Basic Metabolic 09/14/2016 [facility] Sodium 135 mmol/L N 133- [address] [place] [address] [phone] Potassium 5.0 mmol/L N 3.5-5.0 Chloride 100 mmol/L Low 101-111 Co2 Carbon Dioxide 27 mmol/L N 22-32 Anion Gap 8 mmol/L N 2-11 Glucose 122 mg/dL High 70-100 Blood Urea Nitrogen 19 mg/dL N 6-24 Creatinine 1.17 mg/dL High 0.51-0.95 BUN/Creatinine Ratio 16.2 N 8-20 Calcium 9.4 mg/dL N 8.6-10.3 Egfr Non- 44.4 N >60 Egfr 57.1 N >60 27 Laboratory test 08/09/2016 [facility] Hemoglobin A1c 6.6 % High Less than [address] (Glyco HGB) 6.0 [place] [address] [phone] Basic Metabolic 08/09/2016 [facility] Sodium 139 N 133-[address] mmol/[place] [address] [phone] Potassium 4.3 mmol/L N 3.5-5.0 Chloride 103 mmol/L N 101-111 Co2 Carbon Dioxide 28 mmol/L N 22-32 Anion Gap 8 mmol/L N 2-11 Glucose 72 mg/dL N 70-100 Blood Urea Nitrogen 25 mg/dL High 6-24 Creatinine 1.18 mg/dL High 0.51-0.95 BUN/Creatinine Ratio 21.2 High 8-20 Calcium 9.6 mg/dL N 8.6-10.3 Egfr Non- 44.0 N >60 Egfr 56.5 N >60 29 Lipid Profile 08/09/2016 [facility] Triglycerides 171 mg/dL N 30 (Trig/Chol/HDL) [address] [place] [address] [phone] Cholesterol 125 mg/dL N 31 HDL Cholesterol 39.0 mg/dL N 32 LDL Cholesterol 52 mg/dL N 33 Urine Microalbumin 08/09/2016 [facility] Urine Creatinine 52.84 mg/dL N Random [address] [place] [address] [phone] Ur Microalbumin (mg/L) 139.7 mg/L N Urine Microalbumin/Creatinine 264.3 ug/mg High <31 Laboratory test 08/09/2016 [facility] TSH (Thyroid 2.50 N 0.34 -5.[address] Stim Horm) mcIU/[place] [address] [phone] Laboratory test 02/16/2016 [facility] Hemoglobin A1c 6.5 5-7 finding Basic Metabolic 09/27/2015 [facility] Sodium 138 mmol/L N 133- [address] [place] [address] [phone] Potassium 4.3 mmol/L N 3.5-5.0 Chloride 102 mmol/L N 101-111 Co2 Carbon Dioxide 29 mmol/L N 22-32 Anion Gap 7 mmol/L N 2-11 Glucose 79 mg/dL N 70-100 Blood Urea Nitrogen 25 mg/dL High 6-24 Creatinine 1.09 mg/dL High 0.51-0.95 BUN/Creatinine Ratio 22.9 High 8-20 Calcium 9.9 mg/dL N 8.6-10.3 Egfr Non- 48.3 N >60 Egfr 62.1 N >60 35 Urine Microalbumin 07/29/2015 [facility] Ur Microalbumin 22.0 mg /L N [address] (mg/L) [place] [address] [phone] Urine Creatinine 56.95 mg/dL N Urine Microalbumin/Creatinine 38.6 ug/mg High <31 Lipid Profile 07/29/2015 [facility] Triglycerides 183 mg/dL N 37 (Trig/Chol/HDL) [address] [place] [address] [phone] Cholesterol 129 mg/dL N 38 HDL Cholesterol 37.0 mg/dL N 39 LDL Cholesterol 55 mg/dL N 40 Laboratory test 07/29/2015 [facility] Hemoglobin A1c 7.0 % High Less than [address] (Glyco HGB) 6.0 [place] [address] [phone] Laboratory test 07/29/2015 [facility] TSH (Thyroid 2.75 N 0.34 -5.[address] Stim Horm) ?IU/[place] [address] [phone] Comp Metabolic 07/29/2015 [facility] Sodium 139 N 133-[address] mmol/[place] [address] [phone] Potassium 4.2 mmol/L N 3.5-5.0 Chloride 104 mmol/L N 101-111 Co2 Carbon Dioxide 26 mmol/L N 22-32 Anion Gap 9 mmol/L N 2-11 Glucose 72 mg/dL N 70-100 Blood Urea Nitrogen 23 mg/dL N 6-24 Creatinine 1.07 mg/dL High 0.51-0.95 BUN/Creatinine Ratio 21.5 High 8-20 Calcium 9.7 mg/dL N 8.6-10.3 Total Protein 6.9 g/dL N 6.4-8.9 Albumin 4.5 g/dL N 3.2-5.2 Globulin 2.4 g/dL N 2-4 Albumin/Globulin Ratio 1.9 N 1-3 Total Bilirubin 0.80 mg/dL N 0.2-1.0 Alkaline Phosphatase 61 U/L N 34-104 Alt 12 U/L N 7-52 Ast 14 U/L N 13-39 Egfr Non- 49.3 N >60 Egfr 63.5 N >60 43 Laboratory test finding 02/09/2015 [facility] Hemoglobin A1c 6.0 5-7 Urinalysis Profile 02/04/2015 [facility] Urine Color Yellow [address] [place] [address] [phone] Urine Appearance Cloudy N Urine Specific [place] 1.010 N 1.010-1.030 Urine pH 6.0 N 5-9 Urine Urobilinogen Negative N Negative Urine Ketones Negative N Negative Urine Protein Negative N Negative Urine Leukocytes Negative N Negative Urine Blood Negative N Negative * * Abnormal Negative 44 Urine Nitrite Negative N Negative Urine Bilirubin Negative N Negative Urine Glucose Negative N Negative Comp Metabolic Panel 08/25/2014 [facility] Sodium 137 mmol/L N 133-[address] [place] [address] [phone] Potassium 3.5 mmol/L N 3.5-5.0 Chloride 104 mmol/L N 101-111 Co2 Carbon Dioxide 24 mmol/L N 22-32 Anion Gap 9 mmol/L N 2-11 Glucose 165 mg/dL High 70-100 Blood Urea Nitrogen 18 mg/dL N 6-24 Creatinine 1.37 mg/dL High 0.51-0.95 BUN/Creatinine Ratio 13.1 N 8-20 Calcium 8.6 mg/dL N 8.6-10.3 Total Protein 7.0 g/dL N 6.4-8.9 Albumin 3.9 g/dL N 3.2-5.2 Globulin 3.1 g/dL N 2-4 Albumin/Globulin Ratio 1.3 N 1-3 Total Bilirubin 0.80 mg/dL N 0.2-1.0 Alkaline Phosphatase 54 U/L N 34-104 Alt 16 U/L N 7-52 Ast 22 U/L N 13-39 Egfr Non- 37.2 N >60 Egfr 47.8 N >60 45 Laboratory test 08/25/2014 [facility] Lactic Acid 1.6 mmol/L N 0.5-2.[address] [place] [address] [phone] CBC Auto Diff 08/25/2014 [facility] White Blood 13.6 High 4.8- 10.[address] Count 10^3/[place] [address] [phone] Red Blood Count 3.85 10^6/uL Low 4.0-5.4 Hemoglobin 11.7 g/dL Low 12.0-16.0 Hematocrit 35 % N 35-47 Mean Corpuscular Volume 92 fL N 80-97 Mean Corpuscular Hemoglobin 30 pg N 27-31 Mean Corpuscular HGB Conc 33 g/dL N 31-36 Red Cell Distribution Width 14 % N 10.5-15 Platelet Count 159 10^3/uL N 150-450 Mean Platelet Volume 10 um3 N 7.4-10.4 Abs Neutrophils 9.6 10^3/uL High 1.5-7.7 Abs Lymphocytes 2.8 10^3/uL N 1.0-4.8 Abs Monocytes 1.1 10^3/uL High 0-0.8 Abs Eosinophils 0.1 10^3/uL N 0-0.6 Abs Basophils 0.1 10^3/uL N 0-0.2 Abs Nucleated RBC 0.01 10^3/uL N Granulocyte % 70.6 % N 38-83 Lymphocyte % 20.9 % Low 25-47 Monocyte % 7.7 % N 1-9 Eosinophil % 0.4 % N 0-6 Basophil % 0.4 % N 0-2 Nucleated Red Blood Cells % 0 N Lipid Profile 06/30/2014 [facility] Triglycerides 169 mg/dL N 46, 47 (Trig/Chol/HDL) [address] [place], [place] [id number] [phone] Cholesterol 115 mg/dL N 48 HDL Cholesterol 35.5 mg/dL N 49 LDL Cholesterol 46 mg/dL N 50 Laboratory test 06/30/2014 [facility] TSH (Thyroid 3.55 N 0.34 -5.60 51 finding Stimulating IU/[place] [address] Horm) [phone] Urine 06/30/2014 [facility] Ur Microalbumin 11.0 mg/L N Microalbumin (mg/L) Random [place], [place] [id number] [phone] Urine Creatinine 119.43 mg/dL N Urine Microalbumin/Creatinine 9.2 N Less Than 31 Laboratory test 06/30/2014 [facility] Hemoglobin A1c 6.4 % High Less than 52 finding 6.0 [place] [address] [phone] Laboratory test 06/12/2014 [facility] Creatine Kinase 181 U/L N 10-223 [place] [address] [phone] Violetta (Anti-Nuclear AB) Screen Negative N Negative Comp Metabolic Panel 06/12/2014 [facility] Sodium 138 mmol/L N 133-[address] [place] [address] [phone] Potassium 4.5 mmol/L N 3.7-5.6 Chloride 103 mmol/L N 101-111 Co2 Carbon Dioxide 28 mmol/L N 22-32 Anion Gap 7 mmol/L N 2-11 Glucose 85 mg/dL N 70-100 Blood Urea Nitrogen 27 mg/dL High 6-24 Creatinine 1.15 mg/dL High 0.51-0.95 BUN/Creatinine Ratio 23.5 High 8-20 Calcium 9.4 mg/dL N 8.6-10.3 Total Protein 6.3 g/dL Low 6.4-8.9 Albumin 4.1 g/dL N 3.2-5.2 Globulin 2.2 g/dL N 2-4 Albumin/Globulin Ratio 1.9 N 1-3 Total Bilirubin 0.50 mg/dL N 0.2-1.0 Alkaline Phosphatase 61 U/L N 34-104 Alt 10 U/L N 7-52 Ast 16 U/L N 13-39 Egfr Non- 45.5 N >60 Egfr 58.5 N >60 53 CBC Auto Diff 06/12/2014 [facility] White Blood 9.5 10^3/uL N 4.8-10.[address] [place] [address] [phone] Red Blood Count 3.69 10^6/uL Low 4.0-5.4 Hemoglobin 11.4 g/dL Low 12.0-16.0 Hematocrit 34 % Low 35-47 Mean Corpuscular Volume 92 fL N 80-97 Mean Corpuscular Hemoglobin 31 pg N 27-31 Mean Corpuscular HGB Conc 34 g/dL N 31-36 Red Cell Distribution Width 13 % N 10.5-15 Platelet Count 214 10^3/uL N 150-450 Mean Platelet Volume 10 um3 N 7.4-10.4 Abs Neutrophils 6.4 10^3/uL N 1.5-7.7 Abs Lymphocytes 2.0 10^3/uL N 1.0-4.8 Abs Monocytes 0.6 10^3/uL N 0-0.8 Abs Eosinophils 0.4 10^3/uL N 0-0.6 Abs Basophils 0.1 10^3/uL N 0-0.2 Abs Nucleated RBC 0 10^3/uL N Granulocyte % 67.2 % N 38-83 Lymphocyte % 20.7 % Low 25-47 Monocyte % 6.5 % N 1-9 Eosinophil % 4.3 % N 0-6 Basophil % 1.3 % N 0-2 Nucleated Red Blood Cells % 0 N Laboratory test 06/12/2014 [facility] C Reactive 3.87 mg/L N < 5.00 [address] [place] [address] [phone] Erythrocyte Sed Rate 38 mm/Hr N 0-40 Rheumatoid Factor <15 IU/mL N <15 55 CBC Auto Diff 01/06/2014 [facility] White Blood 9.7 10^3/uL N 4.8-10.[address] [place] [address] [phone] Red Blood Count 4.02 10^6/uL N 4.0-5.4 Hemoglobin 12.1 g/dL N 12.0-16.0 Hematocrit 37 % N 35-47 Mean Corpuscular Volume 92 fL N 80-97 Mean Corpuscular Hemoglobin 30 pg N 27-31 Mean Corpuscular HGB Conc 33 g/dL N 31-36 Red Cell Distribution Width 13 % N 10.5-15 Platelet Count 240 10^3/uL N 150-450 Mean Platelet Volume 10 um3 N 7.4-10.4 Abs Neutrophils 6.9 10^3/uL N 1.5-7.7 Abs Lymphocytes 1.7 10^3/uL N 1.0-4.8 Abs Monocytes 0.6 10^3/uL N 0-0.8 Abs Eosinophils 0.4 10^3/uL N 0-0.6 Abs Basophils 0.1 10^3/uL N 0-0.2 Abs Nucleated RBC 0 10^3/uL N Granulocyte % 71.2 % N 38-83 Lymphocyte % 17.7 % Low 25-47 Monocyte % 6.3 % N 1-9 Eosinophil % 3.8 % N 0-6 Basophil % 1.0 % N 0-2 Nucleated Red Blood Cells % 0 N Comp Metabolic Panel 01/06/2014 [facility] Sodium 140 mmol/L N 133-[address] [place] [address] [phone] Potassium 4.6 mmol/L N 3.7-5.6 Chloride 104 mmol/L N 101-111 Co2 Carbon Dioxide 28 mmol/L N 22-32 Anion Gap 8 mmol/L N 2-11 Glucose 79 mg/dL N 70-100 Blood Urea Nitrogen 27 mg/dL High 6-24 Creatinine 1.20 mg/dL High 0.51-0.95 BUN/Creatinine Ratio 22.5 High 8-20 Calcium 9.2 mg/dL N 8.6-10.3 Total Protein 7.0 g/dL N 6.4-8.9 Albumin 4.2 g/dL N 3.2-5.2 Globulin 2.8 g/dL N 2-4 Albumin/Globulin Ratio 1.5 N 1-3 Total Bilirubin 0.70 mg/dL N 0.2-1.0 Alkaline Phosphatase 70 U/L N 34-104 Alt 11 U/L N 7-52 Ast 16 U/L N 13-39 Egfr Non- 43.4 N >60 Egfr 55.9 N >60 56 Lipid Profile 01/06/2014 [facility] Triglycerides 155 mg/dL N 57 (Trig/Chol/HDL) [address] [place], [place] [id number] [phone] Cholesterol 127 mg/dL N 58 HDL Cholesterol 37.9 mg/dL N 59 LDL Cholesterol 58 mg/dL N 60 Laboratory test 01/06/2014 [facility] TSH (Thyroid 2.59 N 0.34 -5.60 [address] Stimulating IU/[place] [address] Horm) [phone] Hemoglobin A1c 6.4 % High Less than 6.0 62 Urine Microalbumin 01/06/2014 [facility] Ur Microalbumin 9.0 mg/ dL N <30 [address] (mg/L) [place] [address] [phone] Urine Creatinine 106.72 mg/dL N Urine Microalbumin/Creatinine 8.4 N Less Than 31 CBC Auto Diff 12/16/2013 [facility] White Blood 9.3 10^3/uL N 4.8-10.[address] [place] [address] [phone] Red Blood Count 4.02 10^6/uL N 4.0-5.4 Hemoglobin 12.4 g/dL N 12.0-16.0 Hematocrit 36 % N 35-47 Mean Corpuscular Volume 90 fL N 80-97 Mean Corpuscular Hemoglobin 31 pg N 27-31 Mean Corpuscular HGB Conc 34 g/dL N 31-36 Red Cell Distribution Width 13 % N 10.5-15 Platelet Count 233 10^3/uL N 150-450 Mean Platelet Volume 10 um3 N 7.4-10.4 Abs Neutrophils 6.2 10^3/uL N 1.5-7.7 Abs Lymphocytes 1.9 10^3/uL N 1.0-4.8 Abs Monocytes 0.7 10^3/uL N 0-0.8 Abs Eosinophils 0.4 10^3/uL N 0-0.6 Abs Basophils 0.1 10^3/uL N 0-0.2 Abs Nucleated RBC 0 10^3/uL N Granulocyte % 66.5 % N 38-83 Lymphocyte % 20.5 % Low 25-47 Monocyte % 7.7 % N 1-9 Eosinophil % 4.4 % N 0-6 Basophil % 0.9 % N 0-2 Nucleated Red Blood Cells % 0 N Laboratory test 12/16/2013 [facility] B Type 34 pg/mL N [address] [place] [address] Peptide [phone] Laboratory test 12/16/2013 [facility] C Reactive 11.87 mg/L High < [address] Protein 5.00 [place] [address] [phone] Laboratory test 10/24/2013 [facility] Hemoglobin A1c 6.4 5-7 finding Laboratory test 04/15/2013 [facility] Hemoglobin A1c 6.4 5-7 finding Urinalysis 04/02/2013 [facility] Urine Color Yellow [address] [place] [address] [phone] Urine Appearance Clear Urine Specific [place] 1.007 Low 1.010-1.030 Urine Esterase Negative Negative Urine Nitrate Negative Negative Urine Urobilinogen Negative E.U./dL Negative Urine Protein Negative mg/dL Negative Urine pH 6.5 5-9 Urine Blood Negative Negative Urine Ketones Negative mg/dL Negative Urine Bilirubin Negative Negative Urine Glucose Negative mg/dL Negative Urine Culture And 04/02/2013 [facility] Urine Culture (SEE NOTE ) [address] [place], [place] [id number] [phone] Liver Function 01/29/2013 [facility] Total Protein 5.9 g/dL Low 6.2-[address]1 [place] [address] [phone] Albumin 3.6 g/dL 3.2-5.2 Globulin 2.3 g/dL 2-4 Albumin/Globulin Ratio 1.6 1-3 Total Bilirubin 0.6 mg/dL 0.4-1.5 Direct Bilirubin 0.1 mg/dL 0.1-0.5 Indirect Bilirubin 0.5 mg/dL 0.3-1.0 Alkaline Phosphatase 185 U/L High 30-110 Alt 30 U/L 14-54 Ast 24 U/L 12-42 Urine Microscopic 01/20/2013 [facility] Urine WBC 2+ (>10-30 None Seen [address] /hpf) [place] [address] [phone] Urine Mucus Present /lpf Absent Bacteria Urine 3+ None Seen CBC Auto 01/20/2013 [facility] White Blood 17.0 10^3/uL High 4.8-10.[address] [place] [address] [phone] Red Blood Count 3.87 10^6/uL Low 4.0-5.4 Hemoglobin 11.7 g/dL Low 12.0-16.0 Hematocrit 35 % 35-47 Mean Corpuscular Volume 90 fL 80-97 Mean Corpuscular Hemoglobin 30 pg 27-31 Mean Corpuscular HGB Conc 34 g/dL 31-36 Red Cell Distribution Width 13 % 10.5-15 Platelet Count 201 10^3/uL 150-450 Mean Platelet Volume 9 um3 7.4-10.4 Abs Neutrophils 14.8 10^3/uL High 1.5-7.7 Abs Lymphocytes 1.0 10^3/uL 1.0-4.8 Abs Monocytes 1.1 10^3/uL High 0-0.8 Abs Eosinophils 0 10^3/uL 0-0.6 Abs Basophils 0.1 10^3/uL 0-0.2 Abs Nucleated RBC 0.01 10^3/uL Granulocyte % 87.4 % High 38-83 Lymphocyte % 5.7 % Low 25-47 Monocyte % 6.5 % 1-9 Eosinophil % 0.1 % 0-6 Basophil % 0.3 % 0-2 Nucleated Red Blood Cells % 0 Stool For Blood 01/20/2013 [facility] Stool Occult (SEE NOTE) [address] [place] [address] [phone] Comp Metabolic 01/20/2013 [facility] Sodium 139 mmol/L 133- [address] [place] [address] [phone] Potassium 4.0 mmol/L 3.5-5.0 Chloride 102 mmol/L 101-111 Co2 Carbon Dioxide 25.0 mmol/L 22-32 Anion Gap 12.0 mmol/L High 2-11 Glucose 145 mg/dL High 70-100 Blood Urea Nitrogen 22 mg/dL 6-24 Creatinine 1.20 mg/dL 0.50-1.40 BUN/Creatinine Ratio 18.3 8-20 Calcium 9.4 mg/dL 8.1-9.9 Total Protein 6.8 g/dL 6.2-8.1 Albumin 3.8 g/dL 3.2-5.2 Globulin 3.0 g/dL 2-4 Albumin/Globulin Ratio 1.3 1-3 Total Bilirubin 0.8 mg/dL 0.4-1.5 Alkaline Phosphatase 71 U/L 30-110 Alt 14 U/L 14-54 Ast 17 U/L 12-42 Egfr Non- 43.6 >60 Egfr 56.0 >60 69 Laboratory test 01/20/2013 [facility] Lactic Acid 1.9 mmol/L High 0.5-1.[address] [place] [address] [phone] Creatine Kinase 48 U/L 0-200 CKMB 01/20/2013 [facility] CKMB ng/mL 0.9 ng/mL 0.3-4.[address] [place] [address] [phone] Laboratory test 01/20/2013 [facility] Troponin I 0.01 ng/mL 0 -0.06 [address] [place] [address] [phone] Myoglobin 43.20 ng/mL 14.3-65.8 C Reactive Protein 2.5 mg/dL High Less than 0.5 Inr/Protime 01/20/2013 [facility] Inr 0.97 0.87-0.97 [address] [place] [address] [phone] Laboratory test 01/20/2013 [facility] Activated 28.6 22.18- 37.18 72 finding [address] [facility] [place] [address] Thrombo Time [phone] D Dimer Quantitative 262 ng/mL High Less Than 230 73 Urinalysis 01/20/2013 [facility] Urine Color Yellow [address] [place] [address] [phone] Urine Appearance Clear Urine Specific [place] 1.015 1.010-1.030 Urine Esterase 2+ Abnormal Negative Urine Nitrate Positive Abnormal Negative Urine Urobilinogen Negative E.U./dL Negative Urine Protein 1+ mg/dL Abnormal Negative Urine pH 5.5 5-9 Urine Blood Negative Negative Urine Ketones Negative mg/dL Negative Urine Bilirubin Negative Negative Urine Glucose Negative mg/dL Negative Urine Microalbumin 01/13/2013 [facility] Ur Microalbumin 7.0 mg/ L [address] (mg/L) [place] [address] [phone] Urine Creatinine 38.4 mg/dL Urine Microalbumin/Creatinine 18.2 ug/mg Less Than 31 Laboratory test 01/13/2013 [facility] Hemoglobin A1c 8.8 High 5-7 finding Laboratory test 10/15/2012 [facility] Hemoglobin A1c 11.2 High 5-7 finding Comp Metabolic 10/15/2012 [facility] Sodium 139 mmol/L 133- [address] [place] [address] [phone] Potassium 5.0 mmol/L 3.5-5.0 Chloride 101 mmol/L 101-111 Co2 Carbon Dioxide 28.0 mmol/L 22-32 Anion Gap 10.0 mmol/L 2-11 Glucose 163 mg/dL High 70-100 Blood Urea Nitrogen 22 mg/dL 6-24 Creatinine 1.10 mg/dL 0.50-1.40 BUN/Creatinine Ratio 20.0 8-20 Calcium 9.8 mg/dL 8.1-9.9 Total Protein 7.4 g/dL 6.2-8.1 Albumin 4.4 g/dL 3.2-5.2 Globulin 3.0 g/dL 2-4 Albumin/Globulin Ratio 1.5 1-3 Total Bilirubin 1.0 mg/dL 0.4-1.5 Alkaline Phosphatase 97 U/L 30-110 Alt 18 U/L 14-54 Ast 19 U/L 12-42 Egfr Non- 48.2 >60 Egfr 61.9 >60 75 Laboratory 10/15/2012 [facility] TSH (Thyroid 2.51 0.34-5.60 test finding [address] Stimulating miu/[place] [address] Horm) [phone] Lipid Profile 10/15/2012 [facility] Triglycerides 239 mg/dL High 40-200 (Trig/Chol/HDL [address] ) [place] [address] [phone] Cholesterol 178 mg/dL Less than 200 HDL Cholesterol 44 mg/dL 40-60 76 Cholesterol/HDL Ratio 4.1 Average 1-4.44 LDL Cholesterol 86.2 mg/dL Less Than 100 77 Laboratory test 10/15/2012 [facility] T4 11.9 g/mL 5.0- 12.[address] [place] [address] [phone] CBC With Manual 10/15/2012 [facility] White Blood 7.8 10^3/uL 4.8-10.[address] [place] [address] [phone] Red Blood Count 4.33 10^6/uL 4.0-5.4 Hemoglobin 13.4 g/dL 12.0-16.0 Hematocrit 41 % 35-47 Mean Corpuscular Volume 94 fL 80-97 Mean Corpuscular Hemoglobin 31 pg 27-31 Mean Corpuscular HGB Conc 33 g/dL 31-36 Red Cell Distribution Width 13 % 10.5-15 Platelet Count 233 10^3/uL 150-450 Mean Platelet Volume 10 um3 7.4-10.4 Abs Neutrophils 5.1 10^3/uL 1.5-7.7 Abs Lymphocytes 1.6 10^3/uL 1.0-4.8 Abs Monocytes 0.7 10^3/uL 0-0.8 Abs Eosinophils 0.3 10^3/uL 0-0.6 Abs Basophils 0.1 10^3/uL 0-0.2 Abs Nucleated RBC 0 10^3/uL Neutrophil % 70 % 38-83 Lymphocytes % 19 % Low 25-47 Monocytes % 8 % 0-13 Eosinophils % 2 % 0-6 Basophil % 1 % 0-2 RBC Morphology Normal Normal Laboratory test 09/03/2012 [facility] Hemoglobin A1c 13.9 % High Less [address] than 6.0 [place] [address] [phone] Laboratory test 06/11/2012 [facility] TSH (Thyroid 0.07 Low 0.34-5.[address] Stimulating MIU/ML 0 [place] [address] Horm) [phone] Free T4 1.23 NG/ML 0.61-1.24 Laboratory test finding 06/11/2012 [facility] Hemoglobin A1c 6.4 5-7 1 Unable to calculate due to low microalbumin 2 Because ethnic data is not always readily available, this report includes an eGFR for both -Americans and non- Americans. The National Kidney Disease Education Program (NKDEP) does not endorse the use of the MDRD equation for patients that are not between the ages of 18 and 70, are , have extremes of body size, muscle mass, or nutritional status, or are non- or non-. According to the National Kidney Foundation, irrespective of diagnosis, the stage of the disease is based on the level of kidney function: Stage Description GFR(mL/min/1.73 m(2)) 1 Kidney damage with normal or decreased GFR 90 2 Kidney damage with mild decrease in GFR 60-89 3 Moderate decrease in GFR 30-59 4 Severe decrease in GFR 15-29 5 Kidney failure <15 (or dialysis) 3 Desirable: <150 Borderline High: 150-199 High: 200-499 Very High: >500 4 Desirable: <200 Borderline High: 200-239 High: >239 5 Low: <40 Desirable: 40-60 High: >60 6 Desirable: <100 Near Optimal: 100-129 Borderline High: 130-159 High: 160-189 Very High: >189 7 Therapeutic target for the treatment of diabetes mellitus patients is <7% HBA1C, and in selective patients <6.0%. Please refer to [place] [employer] diabetic care guidelines for further information. 8 Health Assessment And Treatment Teacher: [id number] Because ethnic data is not always readily available, this report includes an eGFR for both -Americans and non- Americans. The National Kidney Disease Education Program (NKDEP) does not endorse the use of the MDRD equation for patients that are not between the ages of 18 and 70, are , have extremes of body size, muscle mass, or nutritional status, or are non- or non-. According to the National Kidney Foundation, irrespective of diagnosis, the stage of the disease is based on the level of kidney function: Stage Description GFR(mL/min/1.73 m(2)) 1 Kidney damage with normal or decreased GFR 90 2 Kidney damage with mild decrease in GFR 60-89 3 Moderate decrease in GFR 30-59 4 Severe decrease in GFR 15-29 5 Kidney failure <15 (or dialysis) 10 [id number] SEE RESULT BELOW Name: KEN SABA Earl : [address]: Juwan Mckeon III, MD Acct: [id number] Unit: [id number] AGE: 82 Location: [facility] Re02/14/18 SEX: F Status: REG REF SPEC: [id number] SENG: 02/14/18-1313 [facility] DR: Juwan Mckeon III, MD REQ: [id number] RECD: 02/14/18 STATUS: COMP _ SOURCE: URINE SPDESC: ORDERED: Urine Culture COMMENTS: [id number] QUERIES: Urine Source: Random Procedure Result Reported Site Urine Culture Final 02/16/18- 0846 ML Organism 1 KLEBSIELLA PNEUMONIAE Laotto Count 50-75,000 (Many) CFU/ML Organism 2 NORMAL KWAN Laotto Count 25-50,000 (Moderate) CFU/ML 1. KLEBSIELLA PNEUMONIAE M.I.C. RX --------- ------ Ampicillin R Cefazolin <=4 S Cefepime <=1 S Ceftriaxone <=1 S Ciprofloxacin <=0.25 S Gentamicin <=1 S Levofloxacin <=0.12 S Meropenem <=0.25 S Nitrofurantoin <=16 S Tetracycline <=1 S Pipercillin/Tazobactam <=4 S Trimethoprim/Sulfamethoxazole <=20 S Amoxicillin/Clavulanic Acid 8 S Aztreonam <=1 S Contact the Microbiology Department for any additional antibiotic reporting. * ML - Main Lab . END OF REPORT DEPARTMENT OF PATHOLOGY, [address] [place] [address] Martin Gibbons M.D. Director [facility] # [id number] 12 Unable to calculate due to low microalbumin 13 FASTING 14 FASTING 15 Therapeutic target for the treatment of diabetes mellitus patients is <7% HBA1C, and in selective patients <6.0%. Please refer to [place] [employer] diabetic care guidelines for further information. 16 Desirable: <150 Borderline High: 150-199 High: 200-499 Very High: >500 17 Desirable: <200 Borderline High: 200-239 High: >239 18 Low: <40 Desirable: 40-60 High: >60 19 Desirable: <100 Near Optimal: 100-129 Borderline High: 130-159 High: 160-189 Very High: >189 20 SEE RESULT BELOW Name: KEN SABA : [address]: Juwan Mckeon III, MD Acct: [id number] Unit: [id number] AGE: 82 Location: [facility] Re07/09/17 SEX: F Status: REG REF SPEC: [id number] SENG: 07/04/17 [facility] [address]: Juwan Mckeon III, MD REQ: [id number] RECD: 07/04/17 STATUS: COMP _ SOURCE: URINE SPDESC: ORDERED: Urine Culture QUERIES: Urine Source: Random Procedure Result Reported Site Urine Culture Final 07/11/17- 1341 ML Organism 1 ESCHERICHIA COLI Laotto Count 50-75,000 (Many) CFU/ML 1. ESCHERICHIA COLI M.I.C. RX --------- ------ Ampicillin 4 S Cefazolin <=4 S Cefepime <=1 S Ceftriaxone <=1 S Ciprofloxacin <=0.25 S Gentamicin <=1 S Levofloxacin <=0.12 S Meropenem <=0.25 S Nitrofurantoin <=16 S Tetracycline <=1 S Pipercillin/Tazobactam <=4 S Trimethoprim/Sulfamethoxazole <=20 S Amoxicillin/Clavulanic Acid <=2 S Aztreonam <=1 S Contact the Microbiology Department for any additional antibiotic reporting. * ML - MAIN LAB ([facility]) . END OF REPORT * ML=Testing performed at Main Lab DEPARTMENT OF PATHOLOGY, [address] [place] [address] Martin Gibbons M.D. Director [facility] # [id number] 21 Acute inflammation: >10.00 22 Serologic response to B. burgdorferi infection is not detected, but cannot rule out early infection during which low or undetectable antibody levels to B. burgdorferi may be present. If clinically indicated, a new serum specimen should be submitted in 7-14 days. Test Performed by: [address] [address] 23 *Ascorbic acid is present which may interfere with detection of blood. 24 SEE RESULT BELOW Name: KEN SABA : [address]: Juwan Mckeon III, MD Acct: [id number] Unit: [id number] AGE: 82 Location: LAB Re04/17/17 SEX: F Status: REG REF SPEC: [id number] SENG: 04/17/[address] [facility] [address]: Juwan Mckeon III, MD REQ: [id number] RECD: 04/17/17 STATUS: COMP _ SOURCE: URINE SPDESC: ORDERED: Urine Culture Procedure Result Reported Site Urine Culture Final 04/19/17- 0834 ML Organism 1 KLEBSIELLA PNEUMONIAE Laotto Count >100,000 (Many) CFU/ML Organism 2 NORMAL KWAN Laotto Count 75-100,000 (Many) CFU/ML 1. KLEBSIELLA PNEUMONIAE M.I.C. RX --------- ------ Ampicillin >=32 R Cefazolin <=4 S Cefepime <=1 S Ceftriaxone <=1 S Ciprofloxacin <=0.25 S Gentamicin <=1 S Levofloxacin <=0.12 S Meropenem <=0.25 S Nitrofurantoin 32 S Tetracycline <=1 S Pipercillin/Tazobactam <=4 S Trimethoprim/Sulfamethoxazole <=20 S Amoxicillin/Clavulanic Acid <=2 S Aztreonam <=1 S Contact the Microbiology Department for any additional antibiotic reporting. * ML - MAIN LAB ([facility]) . END OF REPORT * ML=Testing performed at Main Lab DEPARTMENT OF PATHOLOGY, [address] [place] [address] Martin Gibbons M.D. Director [facility] # [id number] 25 Because ethnic data is not always readily available, this report includes an eGFR for both -Americans and non- Americans. The National Kidney Disease Education Program (NKDEP) does not endorse the use of the MDRD equation for patients that are not between the ages of 18 and 70, are , have extremes of body size, muscle mass, or nutritional status, or are non- or non-. According to the National Kidney Foundation, irrespective of diagnosis, the stage of the disease is based on the level of kidney function: Stage Description GFR(mL/min/1.73 m(2)) 1 Kidney damage with normal or decreased GFR 90 2 Kidney damage with mild decrease in GFR 60-89 3 Moderate decrease in GFR 30-59 4 Severe decrease in GFR 15-29 5 Kidney failure <15 (or dialysis) 26 Acute inflammation: >10.00 27 Because ethnic data is not always readily available, this report includes an eGFR for both -Americans and non- Americans. The National Kidney Disease Education Program (NKDEP) does not endorse the use of the MDRD equation for patients that are not between the ages of 18 and 70, are , have extremes of body size, muscle mass, or nutritional status, or are non- or non-. According to the National Kidney Foundation, irrespective of diagnosis, the stage of the disease is based on the level of kidney function: Stage Description GFR(mL/min/1.73 m(2)) 1 Kidney damage with normal or decreased GFR 90 2 Kidney damage with mild decrease in GFR 60-89 3 Moderate decrease in GFR 30-59 4 Severe decrease in GFR 15-29 5 Kidney failure <15 (or dialysis) 28 Therapeutic target for the treatment of diabetes Mellitus patients is <7% HBA1C, and in selective patients <6.0%.Please refer to [place] [employer] Diabetic care guidelines for further information. 29 Because ethnic data is not always readily available, this report includes an eGFR for both -Americans and non- Americans. The National Kidney Disease Education Program (NKDEP) does not endorse the use of the MDRD equation for patients that are not between the ages of 18 and 70, are , have extremes of body size, muscle mass, or nutritional status, or are non- or non-. According to the National Kidney Foundation, irrespective of diagnosis, the stage of the disease is based on the level of kidney function: Stage Description GFR(mL/min/1.73 m(2)) 1 Kidney damage with normal or decreased GFR 90 2 Kidney damage with mild decrease in GFR 60-89 3 Moderate decrease in GFR 30-59 4 Severe decrease in GFR 15-29 5 Kidney failure <15 (or dialysis) 30 Desirable <150 Borderline high 150-199 High 200-499 Very High >500 31 Desirable <200 Borderline high 200-239 High >239 32 Low <40 Desirable: 40-60 High: >60 33 Desirable: <100 mg/dL Near Optimal: 100-129 mg/dL Borderline High: 130-159 mg/dL High: 160-189 mg/dL Very High: >189 mg/dL 34 FASTING 10 HOUR 35 Because ethnic data is not always readily available, this report includes an eGFR for both -Americans and non- Americans. The National Kidney Disease Education Program (NKDEP) does not endorse the use of the MDRD equation for patients that are not between the ages of 18 and 70, are , have extremes of body size, muscle mass, or nutritional status, or are non- or non-. According to the National Kidney Foundation, irrespective of diagnosis, the stage of the disease is based on the level of kidney function: Stage Description GFR(mL/min/1.73 m(2)) 1 Kidney damage with normal or decreased GFR 90 2 Kidney damage with mild decrease in GFR 60-89 3 Moderate decrease in GFR 30-59 4 Severe decrease in GFR 15-29 5 Kidney failure <15 (or dialysis) 36 PT IS FASTING 37 Desirable <150 Borderline high 150-199 High 200-499 Very High >500 38 Desirable <200 Borderline high 200-239 High >239 39 Low <40 Desirable: 40-60 High: >60 40 Desirable: <100 mg/dL Near Optimal: 100-129 mg/dL Borderline High: 130-159 mg/dL High: 160-189 mg/dL Very High: >189 mg/dL 41 Therapeutic target for the treatment of diabetes Mellitus patients is <7% HBA1C, and in selective patients <6.0%.Please refer to [place] [employer] Diabetic care guidelines for further information. 42 PT IS FASTING 43 Because ethnic data is not always readily available, this report includes an eGFR for both -Americans and non- Americans. The National Kidney Disease Education Program (NKDEP) does not endorse the use of the MDRD equation for patients that are not between the ages of 18 and 70, are , have extremes of body size, muscle mass, or nutritional status, or are non- or non-. According to the National Kidney Foundation, irrespective of diagnosis, the stage of the disease is based on the level of kidney function: Stage Description GFR(mL/min/1.73 m(2)) 1 Kidney damage with normal or decreased GFR 90 2 Kidney damage with mild decrease in GFR 60-89 3 Moderate decrease in GFR 30-59 4 Severe decrease in GFR 15-29 5 Kidney failure <15 (or dialysis) 44 *Ascorbic acid is present which may interfere with detection of blood. 45 Because ethnic data is not always readily available, this report includes an eGFR for both -Americans and non- Americans. The National Kidney Disease Education Program (NKDEP) does not endorse the use of the MDRD equation for patients that are not between the ages of 18 and 70, are , have extremes of body size, muscle mass, or nutritional status, or are non- or non-. According to the National Kidney Foundation, irrespective of diagnosis, the stage of the disease is based on the level of kidney function: Stage Description GFR(mL/min/1.73 m(2)) 1 Kidney damage with normal or decreased GFR 90 2 Kidney damage with mild decrease in GFR 60-89 3 Moderate decrease in GFR 30-59 4 Severe decrease in GFR 15-29 5 Kidney failure <15 (or dialysis) 46 FASTING 47 Desirable <150 Borderline high 150-199 High 200-499 Very High >500 48 Desirable <200 Borderline high 200-239 High >239 49 Low <40 Desirable: 40-60 High: >60 50 Desirable <100 Near Optimal 100-129 Borderline high 130-159 High 160-189 Very High >189 51 FASTING 52 Therapeutic target for the treatment of diabetes Mellitus patients is <7% HBA1C, and in selective patients <6.0%.Please refer to [place] [employer] Diabetic care guidelines for further information. 53 Because ethnic data is not always readily available, this report includes an eGFR for both -Americans and non- Americans. The National Kidney Disease Education Program (NKDEP) does not endorse the use of the MDRD equation for patients that are not between the ages of 18 and 70, are , have extremes of body size, muscle mass, or nutritional status, or are non- or non-. According to the National Kidney Foundation, irrespective of diagnosis, the stage of the disease is based on the level of kidney function: Stage Description GFR(mL/min/1.73 m(2)) 1 Kidney damage with normal or decreased GFR 90 2 Kidney damage with mild decrease in GFR 60-89 3 Moderate decrease in GFR 30-59 4 Severe decrease in GFR 15-29 5 Kidney failure <15 (or dialysis) 54 Acute inflammation: >10.00 55 Test Performed by: [facility] - [address] [address] Sanitation Worker: Vasyl Blood M.D. 56 Because ethnic data is not always readily available, this report includes an eGFR for both -Americans and non- Americans. The National Kidney Disease Education Program (NKDEP) does not endorse the use of the MDRD equation for patients that are not between the ages of 18 and 70, are , have extremes of body size, muscle mass, or nutritional status, or are non- or non-. According to the National Kidney Foundation, irrespective of diagnosis, the stage of the disease is based on the level of kidney function: Stage Description GFR(mL/min/1.73 m(2)) 1 Kidney damage with normal or decreased GFR 90 2 Kidney damage with mild decrease in GFR 60-89 3 Moderate decrease in GFR 30-59 4 Severe decrease in GFR 15-29 5 Kidney failure <15 (or dialysis) 57 Desirable <150 Borderline high 150-199 High 200-499 Very High >500 58 Desirable <200 Borderline high 200-239 High >239 59 Low <40 Desirable: 40-60 High: >60 60 Desirable <100 Near Optimal 100-129 Borderline high 130-159 High 160-189 Very High >189 61 FASTING 62 Therapeutic target for the treatment of diabetes Mellitus patients is <7% HBA1C, and in selective patients <6.0%.Please refer to [place] [employer] Diabetic care guidelines for further information. 63 Microalbuminuria in a random sample is defined as: Microalbumin/Creatinine ratio of 30-299 ug/mg. 64 >100 to <200 pg/mL: likely compensated congestive heart failure (CHF) 200 to 400 pg/mL: likely moderate CHF >400 pg/mL: likely moderate to severe CHF [place] [facility] 65 Acute inflammation: >10.00 66 RUN DATE: 04/04/13 [facility] LAB LIVE PAGE 1 RUN TIME: [address] [place], [place] [address] Specimen Inquiry Name: KEN SBAA : [address]: Juwan Mckeon III, MD Acct: [id number] Unit: [id number] AGE: 78 Location: [facility] Re04/02/13 SEX: F Status: REG REF SPEC: [id number] SENG: 04/02/[address] [facility] [address]: Juwan Mckeon III, MD REQ: [id number] RECD: 04/02/13 STATUS: VILMA GUARDADO DR: Visiting Nurse Service _ SOURCE: URINE SPDESC: ORDERED: Urine Culture Procedure Result Verified Site Urine Culture Final 04/04/13- 1048 ML Organism 1 NORMAL KWAN Laotto Count 25-50,000 (Moderate) CFU/ML END OF REPORT * ML=Testing performed at Main Lab DEPARTMENT OF PATHOLOGY, [facility] [employer] [place], [place] [address] Martin Gibbons M.D. Director [facility] Permit #[id number] 67 2+ (>10-30 /hpf) 68 RUN DATE: 01/20/13 [facility] LAB LIVE PAGE 1 RUN TIME: 1144 [facility] [employer] [place], [place] [address] Specimen Inquiry Name: KEN SABA : [address]: Malcolm Osborne MD Acct: [id number] Unit: [id number] AGE: 77 Location: ED Re01/20/13 SEX: F Status: REG ER SPEC: [id number] SENG: 01/20/[address]: Malcolm Osborne MD REQ: [id number] RECD: 01/20/13 STATUS: VILMA GUARDADO DR: Visiting Nurse Service Juwan Mckeon III, MD _ SOURCE: STOOL SPDESC: ORDERED: Hemoccult Procedure Result Verified Site Stool Occult Blood Final 01/20/13- 1143 ML Stool Occult Blood Negative END OF REPORT * ML=Testing performed at Main Lab DEPARTMENT OF PATHOLOGY, [address] [place] [address] Martin Gibbons M.D. Director [facility] Permit #[id number] 69 Because ethnic data is not always readily available, this report includes an eGFR for both -Americans and non- Americans. The National Kidney Disease Education Program (NKDEP) does not endorse the use of the MDRD equation for patients that are not between the ages of 18 and 70, are , have extremes of body size, muscle mass, or nutritional status, or are non- or non-. According to the National Kidney Foundation, irrespective of diagnosis, the stage of the disease is based on the level of kidney function: Stage Description GFR(mL/min/1.73 m(2)) 1 Kidney damage with normal or decreased GFR 90 2 Kidney damage with mild decrease in GFR 60-89 3 Moderate decrease in GFR 30-59 4 Severe decrease in GFR 15-29 5 Kidney failure <15 (or dialysis) 70 CKMB interpretation should be made in conjunction with clinical symptoms, patient history and EKG changes. 71 Reference Range and Interpretation: TnI (ng/mL) Interpretation Less Than 0.06 ng/mL Not supportive of diagnosis of [place] 0.06 - 0.50 ng/mL Indeterminate: suggest serial studies if clinically indicated. Greater than 0.5 ng/mL Consistent with diagnosis of [place] 72 Verbal to [id number] by [id number] at 1200 on 01/20/13. Results read back accurately. 73 Please note: The following may produce a false positive D Dimer test: - Rheumatoid factor greater than 60 IU/ml - Plasma hemoglobin greater than 0.05 gm/dl - Bilirubin greater than 50 mg/dl - Lipids greater than 1000 mg/dl - FDP greater than 20 ug/ml 74 Microalbuminuria in a random sample is defined as: Microalbumin/Creatinine ratio of 30-299 ug/mg. 75 Because ethnic data is not always readily available, this report includes an eGFR for both -Americans and non- Americans. The National Kidney Disease Education Program (NKDEP) does not endorse the use of the MDRD equation for patients that are not between the ages of 18 and 70, are , have extremes of body size, muscle mass, or nutritional status, or are non- or non-. According to the National Kidney Foundation, irrespective of diagnosis, the stage of the disease is based on the level of kidney function: Stage Description GFR(mL/min/1.73 m(2)) 1 Kidney damage with normal or decreased GFR 90 2 Kidney damage with mild decrease in GFR 60-89 3 Moderate decrease in GFR 30-59 4 Severe decrease in GFR 15-29 5 Kidney failure <15 (or dialysis) 76 HDL Interpretation: Undesirable: High Risk: Less than 40 MG/DL Desirable: Low Risk: Greater than 60 MG/DL 77 LDL Interpretation: Low Risk Optimal Level: LDL Less than 100 MG/DL Near or Above Optimal: LDL 100-129 MG/DL Borderline High Risk: LDL 130-159 MG/DL High Risk: LDL 160-189 MG/DL Very High Risk: LDL Greater than 189 MG/DL 78 Therapeutic target for the treatment of diabetes Mellitus patients is <7% HBA1C, and in selective patients <6.0%.Please refer to [place] [employer] Diabetic care guidelines for further information. Procedures Date Code Description Status 02/18/2018 590176533 Diabetic Retinal Eye Exam Completed 08/09/2015 [id number] Diabetic Retinal Eye Exam Completed 06/14/2015 [id number] Mammogram Completed 06/12/2014 [id number] Mammogram Completed 01/02/2014 [id number] Bone Mineral Density Test Completed 06/21/2012 [id number] Mammogram Completed Encounters Type Date Location Provider Dx Diagnosis Office Visit 04/22/2018 Augustine Zamora Z02.89 Encounter for other 1:00p Ravi Mckeon M.D. administrative Medicine-Jazmine examinations od E11.9 Type 2 diabetes mellitus without complications E03.9 Hypothyroidism, unspecified E78.00 Pure hypercholesterolemia, unspecified K21.9 Gastro-esophageal reflux disease without esophagitis Office 02/14/2018 Augustine Zamora E11.9 Type 2 diabetes Visit 11:40a Radha Mckeon M.D. mellitus without complications R35.0 Frequency of micturition Office Visit 04/16/2017 1:00p Augustine Zamora R51 Headache Radha Mckeon M.D. R07.89 Other chest pain K21.9 Gastro-esophageal reflux disease without esophagitis Office 02/15/2017 Augustine Zamora E11.9 Type 2 diabetes Visit 10:20a Radha Mckeon M.D. mellitus without complications E03.9 Hypothyroidism, unspecified E78.00 Pure hypercholesterolemia, unspecified R51 Headache Office 08/17/2016 Augustine Zamora E11.9 Type 2 diabetes Visit 10:20a Radha Mckeon M.D. mellitus without complications E03.9 Hypothyroidism, unspecified E78.00 Pure hypercholesterolemia, unspecified Office 04/26/2016 Augustine [facility] Ravi Zamora H91.93 Unspecified Visit 4:00p Radha Mckeon M.D. hearing loss, bilateral Office 12/06/2015 [facility] Internal Kathi Zamora M25.511 Pain in right Visit 4:40p Karon Mckeon M.D. shoulder J06.9 Acute upper respiratory infection, unspecified Office Visit 09/27/2015 10:20a [facility] Internal Juwan Zamora E11.9 Type 2 diabetes Kathi Mckeon M.D. mellitus without Ccmob complications Office Visit 08/12/2015 2:40p [facility] Internal Dimitry Carballo, J00 Acute nasopharyngitis Medicine - TRANSMISSIONS SYSTEMS OPERATOR [common cold] Suite R R05 Cough Office Visit 08/09/2015 11:40a [facility] Internal Juwan Zamora E11.9 Type 2 diabetes Kathi Mckeon M.D. mellitus without Ccmob complications E78.0 Pure hypercholesterolemia E03.9 Hypothyroidism, unspecified Office Visit 07/05/2015 11:30a [facility] Internal Dimitry Carballo J02.9 Acute pharyngitis, Medicine - TRANSMISSIONS SYSTEMS OPERATOR unspecified [address] R05 Cough J01.90 Acute sinusitis, unspecified B37.0 Candidal stomatitis Office Visit 11/25/2014 3:40p [facility] Internal Juwan Zamora 709.9 Skin & Subcutaneous Kathi Mckeon M.D. Tissue Disorders Ccmob Unspec 796.2 Blood Pressure Reading Elevated W/O Hypertension Office Visit 10/15/2014 11:40a [facility] Internal Juwan Zamora 250.00 Diabetes Mellitus Kathi Mckeon M.D. W/O Compl Type II Or Unspec Controlled 272.0 Hypercholesterolemia Pure 244.9 Hypothyroidism Other Unspec Office Visit 09/11/2014 11:30a [facility] Internal Dimitry Carballo, TRANSMISSIONS SYSTEMS OPERATOR [address] [facility] Unspec 780.60 Fever, Unspecified Office Visit 07/01/2014 11:20a [facility] Internal Juwan Zamora 250.00 Diabetes Mellitus Kathi Mckeon M.D. W/O Compl Type II Or Unspec Controlled 272.0 Hypercholesterolemia Pure 244.9 Hypothyroidism Other Unspec 709.9 Skin & Subcutaneous Tissue Disorders Unspec V76.51 Special Screening For Malignant Neoplasms Colon Office Visit 05/13/2014 11:00a [facility] Internal Juwan Zamora 709.9 Skin & Subcutaneous Kathi Mckeon M.D. Tissue Disorders Ccmob Unspec V04.81 Need For Prophylactic Vaccination & Inoculation/Influenza Office Visit 04/09/2014 11:00a [facility] Internal Juwan Zamora 389.9 Hearing Loss Kathi Mckeon M.D. Unspec Office Visit 12/16/2013 11:30a [facility] Internal Brittany Pineda, 466.0 Bronchitis [facility] 782[facility]3 Edema Office Visit 10/24/2013 11:00a [facility] Internal Brittanyscooter ParsonsMiriam, V82.81 Special Screening Medicine - N.P. For Osteoporosis Ccmob 250.00 Diabetes Mellitus W/O Compl Type II Or Unspec Controlled 272.0 Hypercholesterolemia Pure 728.87 Muscle Weakness Generalized 705.81 Dyshidrosis Office Visit 09/04/2013 1:40p [facility] Internal Juwan ESirisha 465.9 URI Upper Medicine - Karon Mckeon M.D. Respiratory Infections Acute Unspec Sites 705.81 Dyshidrosis Office Visit 07/17/2013 11:00a [facility] Internal Juwan Zamora 250.00 Diabetes Mellitus Medicine - Karon Mckeon M.D. W/O Compl Type II Or Unspec Controlled 272.0 Hypercholesterolemia Pure 244.9 Hypothyroidism Other Unspec V76.51 Special Screening For Malignant Neoplasms Colon Office Visit 06/11/2013 2:20p [facility] Internal Juwan Zamora V72.84 Examination Medicine - Sergey Mckeon Preoperative Unspec Ccmob 366.9 Cataract Unspec 250.00 Diabetes Mellitus W/O Compl Type II Or Unspec Controlled 272.0 Hypercholesterolemia Pure 244.9 Hypothyroidism Other Unspec V04.81 Need For Prophylactic Vaccination & Inoculation/Influenza Office Visit 04/15/2013 2:20p [facility] Internal Juwan ESirisha 250.00 Diabetes Mellitus Medicine - Karon Mckeon M.D. W/O Compl Type II Or Unspec Controlled 272.0 Hypercholesterolemia Pure 244.9 Hypothyroidism Other Unspec Office Visit 01/30/2013 10:40a [facility] Internal Juwan ESirisha 599.0 UTI Urinary Tract Medicine - Karon Mckeon M.D. Infection Site Not Spec 250.00 Diabetes Mellitus W/O Compl Type II Or Unspec Controlled 796.2 Blood Pressure Reading Elevated W/O Hypertension Office Visit 01/23/2013 8:26a [facility], 995.91 [facility]oc, Hospitalkenyatta Rincon 595.0 Cystitis Acute 272.4 Hyperlipidemia Other Unspec Office Visit 01/22/2013 8:26a [facility], 995.91 Sepsis Assoc, Hospitalkenyatta Rincon 595.0 Cystitis Acute 272.4 Hyperlipidemia Other Unspec Office Visit 01/21/2013 8:25a [facility] Sameer Sheilasara, 995.91 Sepsis Assoc,pc Hospitalists MDuke 272.4 Hyperlipidemia Other Unspec 595.0 Cystitis Acute 250.00 Diabetes Mellitus W/O Compl Type II Or Unspec Controlled Office Visit 01/20/2013 8:24a [facility] Assoc,pc Eunice Lazo N.Raquel 995.91 Sepsis Hospitalists 272.4 Hyperlipidemia Other Unspec 595.0 Cystitis Acute 250.00 Diabetes Mellitus W/O Compl Type II Or Unspec Controlled Office Visit 01/13/2013 1:40p [facility] Internal Juwan ESirisha 250.00 Diabetes Mellitus [facility] Buddy [facility] W/O Compl Type II Or Unspec Controlled 244.9 Hypothyroidism Other Unspec 272.0 Hypercholesterolemia Pure 389.9 Hearing Loss Unspec 788.37 Incontinence Continuous Leakage Office Visit 10/14/2012 1:20p [facility] Internal Juwan Zamora 250.00 Diabetes Mellitus [facility] W/O Compl Type II Or Unspec Controlled 244.9 Hypothyroidism Other Unspec 272.0 Hypercholesterolemia Pure Office Visit 07/12/2012 11:40a [facility] Internal Juwan Zamora 250.00 Diabetes Mellitus [facility] W/O Compl Type II Or Unspec Controlled 244.9 Hypothyroidism Other Unspec 272.0 Hypercholesterolemia Pure 389.9 Hearing Loss Unspec Office Visit 06/11/2012 1:20p [facility] Internal Juwan Zamora 250.00 Diabetes Mellitus [facility] W/O Compl Type II Or Unspec Controlled V04.81 Need For Prophylactic Vaccination & Inoculation/Influenza 244.9 Hypothyroidism Other Unspec 272.0 Hypercholesterolemia Pure 389.9 Hearing Loss Unspec V76.10 Screening For Malignant Neoplasm Breast Plan of Treatment Future Appointment(s):09/04/2019 1:00 pm - Juwan Mckeon M.D. at [facility] Internal Medicine - [facility]03/04/2019 - Juwan Mckeon M.D.E11.9 Type 2 diabetes mellitus without complicationsNew Medication:Duloxetine HCL 60 mg - 1 by mouth every dayFollow up:wellness exam, fasting labs in 6 months or prnE03.9 Hypothyroidism, loartcmrhvcS74.00 Pure hypercholesterolemia, slokwfztpvkC06.89 Other abnormalities of gait and mobilityNew Therapy:Physical ShdoyqgN53.83 Other nrdcjtrR63.2 Cervicalgia
[2019-04-06 12:43] LABS: ABS Basophils 0.1 10^3/ul (0-0.2); ABS Eosinophils 0.1 10^3/ul (0-0.6); ABS Monocytes 0.7 10^3/ul (0-0.8); ABS Neutrophils 11.2 10^3/ul (1.5-7.7); Eosinophil % 0.5 %; Hematocrit 40 % (35-47); Hemoglobin 13.2 g/dL (12.0-16.0); Lymphocyte % 7.4 %; Mean Corpuscular HGB Conc 33 g/dL (31-36); Mean Corpuscular Hemoglobin 30 pg (27-31); Mean Corpuscular Volume 92 fL (80-97); Mean Platelet Volume 8.9 fL (7.4-10.4); Nucleated Red Blood Cells % 0.1; Platelet Count 266 10^3/uL (150-450); Red Blood Count 4.35 10^6 /uL (3.70-4.87); Red Cell Distribution Width 14 % (10-15)
[2019-04-06 12:57] LABS: ALT 19 U/L (7-52); AST 30 U/L (13-39); Albumin 4.4 g/dL (3.2-5.2); Albumin/Globulin Ratio 1.5 (1-3); Alkaline Phosphatase 71 U/L (34-104); Anion Gap 8 mmol/L (2-11); BUN/Creatinine Ratio 18.3 (8-20); Blood Urea Nitrogen 19 mg/dL (6-24); CO2 Carbon Dioxide 25 mmol/L (22-32); Calcium 10.3 mg/dL (8.6-10.3); Chloride 101 mmol/L (101-111); EGFR African American 61.1 (>60); EGFR Non-African American 50.5 (>60); Globulin 2.9 g/dL (2-4); Glucose 144 mg/dL (70-100); Potassium 4.5 mmol/L (3.5-5.0); Sodium 134 mmol/L (135-145); Total Protein 7.3 g/dL (6.4-8.9)
[2019-04-06 13:02] LABS: Acetaminophen < 15 mcg/mL; Salicylate < 2.50 mg/dL (<30)
[2019-04-06 13:03] LABS: Troponin I 0.07 ng/mL (<0.04)
[2019-04-06 13:19] LABS: TSH (Thyroid Stimulating Horm) 5.98 mcIU/mL (0.34-5.60)
[2019-04-06 14:23] LABS: Urine Appearance Cloudy; Urine Bacteria Absent (Absent); Urine Bilirubin Negative (Negative); Urine Blood Negative (Negative); Urine Color Yellow; Urine Glucose Negative (Negative); Urine Ketones Negative (Negative); Urine Nitrite Negative (Negative); Urine Protein 2+(100 mg/dL) (Negative); Urine Red Blood Cell 2+(6-10/hpf) (Absent); Urine Squamous Epithelial Cell Present (Absent); Urine Urobilinogen Positive (Negative); Urine White Blood Cell Trace(0-5/hpf) (Absent)
[2019-04-06 14:56] LABS: Free T4 0.92 ng/dL (0.61-1.12)
[2019-04-06] MEDS ORDERED: Acetaminophen TAB* 325 MG PO ONE (15:28)
[2019-04-06] MEDS ORDERED: Dextrose 50% Syringe 50 ML* 25 GM/50 ML SYRINGE IV PUSH PRN (16:01)
[2019-04-06 16:49] LABS: Troponin I 0.06 ng/mL (<0.04)
[2019-04-06] MEDS: Atorvastatin* 40 MG TAB PO SCH (18:06)
[2019-04-06] MEDS: Insulin LISPRO* 1 UNITS UNIT SUBCUT SCH (18:06)
[2019-04-06 20:32] LABS: Troponin I 0.05 ng/mL (<0.04)
--- NOTE | 2019-04-06 20:42 | HP ---
CC: Dr. Mckeon * [facility] MEDICINE HISTORY AND PHYSICAL: DATE OF ADMISSION: 04/06/19 PRIMARY CARE PHYSICIAN: Dr. Mckeon. ATTENDING PHYSICIAN: Dr. Elieser Blanchard * (dictation provided by Eunice Lazo NP). CHIEF COMPLAINT: Weakness with question of dysarthria. HISTORY OF PRESENT ILLNESS: Ms. Saba is an 84-year-old female with a past medical history of type 2 diabetes, hypothyroidism, hyperlipidemia who presented today to the hospital with concern for frequent falls at home and question of dysarthria today in the emergency room. Per Ms. Saba, she has had frequent falls over the past 5 to 6 months. She reports that she has been evaluated, but there has been no clear consensus on why she is having this trouble. She is baseline weak as she uses a EasyStand to get out of the chair. She uses a walker for ambulation. She describes simply that her legs seem to buckle and then she goes down to the ground. She has had no other symptoms recently. She denies chest pain, shortness of breath, nausea, vomiting, diarrhea, abdominal pain. She has been eating and drinking normally. She has had no chills, no fevers, no weight loss. Today in the emergency room, there was a concern that perhaps she has some dysarthria. On speaking with Ms. Saba, she seems to indicate at least at this point that her speech is at baseline and she does have some apparent dysarthria at baseline and so it is unclear if any of these is an acute issue. In the emergency room, Ms. Saba had workup that showed her labs were essentially normal, although she does have an elevation in her troponin to 0.07. Her BUN and creatinine are at baseline. She has no leukocytosis. Her vital signs are stable. She did have a CT brain, a chest x-ray, a cervical spine CT, a lumbar spine x-ray, a pelvis x-ray, and a thoracolumbar spine x-ray , which failed to show any acute abnormalities. PAST MEDICAL HISTORY: 1. Type 2 diabetes. 2. Hypothyroidism. 3. Hyperlipidemia. 4. Urinary incontinence. 5. Hearing loss. 6. Blindness in the left eye. 7. Significantly decreased vision, right eye. MEDICATIONS: Outpatient are: 1. Tylenol 500 mg p.o. q.6 hours p.r.n. 2. Calcium carbonate with vitamin D3 1 tab p.o. b.i.d. 3. Ibuprofen 400 mg p.o. q.6 hours p.r.n. 4. Lantus insulin 49 units subcutaneously q.a.m. 5. Metformin 1000 mg p.o. q.a.m. 6. Ascorbic acid 500 mg p.o. daily. 7. Cholecalciferol 2000 units p.o. daily. 8. Levothyroxine 50 mcg p.o. daily. 9. Simvastatin 80 mg p.o. q.p.m. ALLERGIES: To CLINDAMYCIN, PENICILLINS, and SULFAMETHOXAZOLE. FAMILY HISTORY: The patient's father in a fishing accident at age of 38 and mother related to heart issues at 59. Her brother related to lung cancer. SOCIAL HISTORY: No report of alcohol, tobacco, or drug use. She lives at [facility]. She does not have any family in [facility], although she does have a daughter in [place] and her daughter's name is Kellie Piedra, . In the past, she stated that Andre[facility] at [facility] would be her healthcare proxy. REVIEW OF SYSTEMS: A 14-point review of systems was completed with Ms. Saba and all those not mentioned above were negative. PHYSICAL EXAMINATION GENERAL: Ms. Saba is lying in the bed, she is in no acute distress. VITAL SIGNS: Temperature 98.5, pulse rate 99, respiratory rate 16, O2 saturation 96% on room air, blood pressure 142/73. LUNGS: Clear to auscultation bilaterally with no accessory muscle use and good aeration. HEART: S1, S2. No murmur, rub, or gallop and regular. ABDOMEN: Soft, nontender with bowel sounds positive x4. NEURO: She is alert. She is oriented x3. She moves all extremities equally. There is no facial asymmetry or focal weakness. EXTREMITIES: No cyanosis or edema. SKIN: Intact. DIAGNOSTIC STUDIES/LAB DATA: Sodium 134, potassium 4.5, chloride 101, serum bicarbonate 25, BUN 19, creatinine 1.04, glucose 144. Troponin 0.07. TSH is 5.98, but free T4 is 0.92. I see that her most recent hemoglobin A1c was in August of this year and it was 6.6. She has had recent lipids drawn in August as well showing triglycerides 140, cholesterol 121, LDL 50, HDL 42.7. She had a CT brain today that showed "involutional changes, stigmata of chronic small vessel ischemic disease, no traumatic injury or acute intracranial process evident." She had an EKG, which is the only one we have here on record and it shows a sinus rhythm with no evidence of ischemia. She had a chest x-ray , which showed stigmata of obstructive lung disease, no traumatic injury or acute pulmonary or cardiac process evident. She had a cervical spine CT, which showed no CT evidence for traumatic cervical spine injury. She had a lumbar spine x-ray, "negative for lumbar sacral spine fracture." She had a pelvis x- ray, showed negative for fracture and a thoracolumbar spine that showed no radiographic evidence for traumatic injury to thoracolumbar junction. ASSESSMENT AND PLAN: Ms. Saba is an 84-year-old female with a past medical history of diabetes, hypothyroidism, hyperlipidemia who presented to the hospital with concern for ongoing worsening weakness over the past 5 to 6 months , now also was concerned for possible dysarthria. Our plans are for observation in the hospital for the following. 1. Dysarthria with weakness: Case has been reviewed with Dr. Gomez in the emergency room. I have not spoken with him yet, but per the report, he has recommended that the patient stay for an MRI brain. I have put in a consultation to Dr. Gomez and anticipate that he will see her tomorrow after the MRI is completed. She recently had a hemoglobin A1c, which is normal. Her lipids are well controlled. She will have neuro checks q.4 hours. She will be on the telemetry unit to observe for atrial fibrillation. 2. Type 2 diabetes. Plan to do a slight reduction in her Lantus to 40 units subcutaneously daily, which she will have in the morning and she will have lispro sliding and this can be adjusted as needed. 3. Hypothyroidism. I do see her TSH is elevated, but I am hesitant to adjust the dose of medication during any acute illness, but we will definitely make a note of this at discharge and consider adjusting dose at that point. 4. Hyperlipidemia. Continue simvastatin. 5. DVT prophylaxis with heparin subcu. 6. Code status is DNR. TIME SPENT: Approximately 60 minutes was spent on the admission of this patient ; more than half of the time was spent with the patient at the bedside reviewing the events leading up to this hospitalization, performing the physical examination, and reviewing the plan of care. EUNICE LAZO NP [id number]/[facility] #: [id number] YAMILE
[2019-04-06] MEDS: Heparin VIAL(*) 5000 UNITS/ML VIAL (FIVE THOUSAND) SUBCUT SCH (21:20)
[2019-04-07] MEDS: Levothyroxine TAB* 50 MCG TAB PO SCH (06:17)
[2019-04-07] MEDS: Heparin VIAL(*) 5000 UNITS/ML VIAL (FIVE THOUSAND) SUBCUT SCH ×3 (06:18→21:25)
[2019-04-07] MEDS: Insulin LISPRO* 1 UNITS UNIT SUBCUT SCH ×3 (08:05→17:54)
[2019-04-07] MEDS: Insulin GLARGINE(*) 1 UNITS UNIT SUBCUT SCH (09:58)
[2019-04-07] MEDS: Ascorbic Acid TAB* 500 MG PO SCH (09:59)
[2019-04-07] MEDS: Cholecalciferol TAB* 1000 UNITS PO SCH (09:59)
--- NOTE | 2019-04-07 14:46 | PN ---
Subjective Date of Service: 04/07/19 Interval History: Pt states she has been up from chair to bed and back with walker, but has not worked with PT yet today. She notes she has a h/o falls, stating she has had 5 from Aug to February, but had 3 Sunday and 1 Sunday. When asked about her speech , she states "to me it's alright," but notes that her aid, who has known her for 6 years has stated that she sounds somewhat less clear than usual. She denies CP, SOB, cough, fever, abd pain, n/v/d/c. Objective Active Medications: Acetaminophen (Tylenol Tab*) 650 mg PO Q6H PRN Ascorbic Acid (Vitamin C Tab*) 500 mg PO DAILY PHILL Atorvastatin Calcium (Lipitor*) 40 mg PO QPM PHILL Cholecalciferol (Vitamin D Tab*) 2,000 units PO DAILY PHILL Dextrose (D50w Syringe 50 Ml*) 12.5 gm IV PUSH .FOR FS < 60 - SS PRN Heparin Sodium (Porcine) (Heparin Vial(*)) 5,000 units SUBCUT Q8HR PHILL Insulin Glargine (Lantus(*)) 40 units SUBCUT QAM PHILL Insulin Human Lispro (Humalog*) 0 units SUBCUT AC PHILL; Protocol Levothyroxine Sodium (Synthroid Tab*) 50 mcg PO DAILY@0600 [facility] Vital Signs: Temp Pulse Resp BP Pulse Ox 98.1 F 99 16 103/57 98 04/07/19 11:15 04/07/19 11:15 04/07/19 11:15 04/07/19 11:15 04/07/19 11:15 Oxygen Devices in Use Now: None Appearance: Pt is sitting up in chair. She is resting comfortably and appears to be in no acute distress. She is pleasant, cooperative. Her speech is somewhat slurred and difficult to understand at times. Eyes: No Scleral Icterus, - - L eye chronically retracted with partially closed eyelids. Ears/Nose/Mouth/Throat: NL Teeth, Lips, Gums, Clear Oropharnyx, Mucous Membranes Moist, - - Tongue at ML Neck: NL Appearance and Movements; NL JVP, Trachea Midline Respiratory: Symmetrical Chest Expansion and Respiratory Effort, Clear to Auscultation Cardiovascular: NL Sounds; No Murmurs; No JVD, RRR, No Edema Abdominal: NL Sounds; No Tenderness; No Distention, No Hepatosplenomegaly Neurological: Alert and Oriented x 3, NL Muscle Strength and Tone, - - B/L eyes with diminished vision, L>R (chronic); peripheral vision and EOM diminished. Otherwise, pt with symmetrical facial expression and CN grossly intact. Result Diagrams: 04/06/19 12:32 04/06/19 12:32 Microbiology and Other Data: Microbiology 04/06/19 13:58 Urine Culture - Final Urine Assess/Plan/Problems-Billing Assessment: 84yof PMHx DM II, HLD, hypothyroid presents with weakness, dysarthria, frequent falls. - Patient Problems (1) Weakness Comment: -Pt with weakness, increase in falls; without focal neuro deficit; HA1c 6.6, LDL well controlled at 50 -Neuro consulted; recommend MRI and then will follow up -Awaiting MRI -Tele shows NSR -PT ordered (2) DM II (diabetes mellitus, type II), controlled Comment: -Home glargine decreased from 49 to 40 -Hold metformin -Continue Lispro SS with AC FS (3) Hyperlipidemia Comment: -LDL 50 in August -Continue atorvastatin (4) Hypothyroidism Comment: -TSH WNL; T4 elevated -Continue levothyroxine at 50; will consider dose adjustment at discharge (5) DVT prophylaxis Comment: -Continue heparin SQ Status and Disposition: Observation. Discharge when stable. Awaiting MRI, neuro consult.
--- NOTE | 2019-04-07 16:39 | CONS ---
CONSULTATION REPORT: DATE OF CONSULT: 04/07/19 PATIENT OF: SUE Dumas; Dr. Mckeon. HISTORY OF PRESENT ILLNESS: This is an 84-year-old woman who I am asked to evaluate for difficulty speaking and gait disturbance. The ER doctor specifically said that she had not walked with walker and was an independent walker as late as last week. I had her go back and check, she was saying that there had been a deterioration with walking and falls, but apparently this has been chronic. In addition, the patient notes that her walking has been problematic for more than several months and that she has been walking with a walker for at least a few months' time and has an aide to help her and she even with the walker has some falls. She also told me that she feels her speech is not changed, but there was a concern by aide who apparently said she has some slurring of her speech. These aides are long-term aides with her. There has been no change in her dentition. She is toothless and does not have dentures. There have been no word-finding problems. PAST MEDICAL HISTORY: She has had diabetes for 20 years, hypothyroidism, hyperlipidemia, urinary incontinence, hearing loss. She is blind in the left eye with decreased vision in the right eye. MEDICATIONS: Include: 1. Tylenol p.r.n. 2. Lantus insulin 49 units q.a.m. 3. Metformin 1000 mg q.a.m. 4. Calciferol 2000 units p.o. daily. 5. Levothyroxine 50 mcg daily. 6. Simvastatin 80 mg q.p.m. ALLERGIES: She is allergic to CLINDAMYCIN, PENICILLINS, and SULFAMETHOXAZOLE. FAMILY HISTORY: Her father in a fishing accident at age 38. Mother related to heart issues at 59. Brother from lung cancer. SOCIAL HISTORY: She does not smoke, drink, or use drugs. She lives at [facility]. REVIEW OF SYSTEMS: Negative in all 14 spheres other than HPI. PHYSICAL EXAM: Temperature 98.1, pulse 99, respirations 16, blood pressure 103/ 57. She is alert and oriented with no word-finding difficulties and fluid sentences. Her speech is somewhat slurred, but she says that this is her baseline and it changed when she had her problems with her teeth. Motor exam revealed normal tone and strength with no pronator drift. She had trouble getting out of the chair and this is a chronic difficulty for her. She has a special chair that helps her rise. She needed assistance to get up and had unsteady wide based gait even with a walker. She had greatly diminished vibratory sense she could detect vibration even when I did not put it on. She had diminished position sense as well in her feet. Reflexes were trace. Chest: Clear. Cardiovascular: Regular rate and rhythm. DIAGNOSTIC STUDIES/LAB DATA: She has had a CT scan of her head, which shows atrophy and small vessel ischemic disease. Labs include CBC with white count of 13, otherwise normal. CMP had a sodium of 134, creatinine 1.04, glucose 144 initially. Normal liver function tests. TSH 5.98. UA had 2+ protein, no white cells. Toxicology was negative for acetaminophen and salicylates. IMPRESSION AND PLAN: Cassie by history has chronic gait disturbance with wide based without any acute change. 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 She denies any change in speech and I think her speech sounds like what many people have when they do not have teeth and are without dentures. It is possible that she is clearly at risk for stroke and if there is an interval change listed by others, she is scheduled for an MRI scan and it would make sense to complete this, but from the history I have and the exam I have, I am not sure her speech represents an acute stroke. It is possible the MRI scan will not even show a stroke if it is there, and I would probably have her on a baby aspirin given her multiple risk factors for cardiovascular disease. Thank you for sharing her case. [id number]/[facility] #: [id number] YAMILE
[2019-04-07] MEDS: Atorvastatin* 40 MG TAB PO SCH (17:54)
[2019-04-08] MEDS: Heparin VIAL(*) 5000 UNITS/ML VIAL (FIVE THOUSAND) SUBCUT SCH ×3 (05:42→20:55)
[2019-04-08] MEDS: Levothyroxine TAB* 50 MCG TAB PO SCH (05:42)
[2019-04-08] MEDS: Insulin LISPRO* 1 UNITS UNIT SUBCUT SCH ×3 (07:59→16:36)
[2019-04-08] MEDS: Insulin GLARGINE(*) 1 UNITS UNIT SUBCUT SCH (09:31)
[2019-04-08] MEDS: Cholecalciferol TAB* 1000 UNITS PO SCH (09:32)
[2019-04-08] MEDS: Ascorbic Acid TAB* 500 MG PO SCH (09:32)
[2019-04-08] MEDS: Aspirin EC TAB* 81 MG TAB.EC PO SCH (09:32)
[2019-04-08 11:14] LABS: Folate 13.65 ng/mL (>3.99)
--- NOTE | 2019-04-08 13:55 | PN ---
Subjective Date of Service: 04/08/19 Interval History: Pt feeling well; she has been working with PT using walker and gait belt. She is adamant about going home and does not want to go to [facility]. Pt's aid agrees and would like to get patient home. Aid states that she believes patient's speech is improved. She notes that the patient has fallen approximately 5 times in the 16hours prior to her admission, which is increased from usual. Pt has occasional dry cough and weakness, but no other complaints. Objective Active Medications: Acetaminophen (Tylenol Tab*) 650 mg PO Q6H PRN Ascorbic Acid (Vitamin C Tab*) 500 mg PO DAILY PHILL Aspirin (Aspirin Ec Tab*) 81 mg PO DAILY PHILL Atorvastatin Calcium (Lipitor*) 40 mg PO QPM PHILL Cholecalciferol (Vitamin D Tab*) 2,000 units PO DAILY PHILL Dextrose (D50w Syringe 50 Ml*) 12.5 gm IV PUSH .FOR FS < 60 - SS PRN Heparin Sodium (Porcine) (Heparin Vial(*)) 5,000 units SUBCUT Q8HR PHILL Insulin Glargine (Lantus(*)) 40 units SUBCUT QAM PHILL Insulin Human Lispro (Humalog*) 0 units SUBCUT AC PHILL; Protocol Levothyroxine Sodium (Synthroid Tab*) 50 mcg PO DAILY@0600 [facility] Vital Signs: Temp Pulse Resp BP Pulse Ox 97.9 F 97 16 146/62 98 04/08/19 15:17 04/08/19 15:17 04/08/19 15:17 04/08/19 15:17 04/08/19 15:17 Oxygen Devices in Use Now: None Appearance: Pt is sitting in chair with feet at floor. She is resting comfortably, is cooperative and appropriate. Eyes: - - L eye recessed with loss of vision; L eyelid drooping- both chronic Ears/Nose/Mouth/Throat: NL Teeth, Lips, Gums, Clear Oropharnyx, Mucous Membranes Moist Neck: NL Appearance and Movements; NL JVP, Trachea Midline Respiratory: Symmetrical Chest Expansion and Respiratory Effort, Clear to Auscultation Cardiovascular: NL Sounds; No Murmurs; No JVD, RRR, No Edema Abdominal: NL Sounds; No Tenderness; No Distention, No Hepatosplenomegaly Extremities: No Edema, No Clubbing, Cyanosis Neurological: Alert and Oriented x 3, NL Muscle Strength and Tone, - - Loss of total vision L eye; deaf L ear; symmetrical chest expansion Result Diagrams: 04/06/19 12:32 04/06/19 12:32 Microbiology and Other Data: Microbiology 04/06/19 13:58 Urine Culture - Final Urine Assess/Plan/Problems-Billing Assessment: 84yof PMHx DM II, HLD, hypothyroid presents with weakness, dysarthria, frequent falls. - Patient Problems (1) Weakness Comment: -Pt with weakness, increase in falls; without focal neuro deficit; HA1c 6.6, LDL well controlled at 50 -MRI shows acute/subacute infarct without hemorrhage or mass effect -Will await further recommendations from neuro -Tele shows NSR -Baby asa ordered -PT ordered and following (2) DM II (diabetes mellitus, type II), controlled Comment: -Well controlled -Continue glargine 40 -Hold metformin -Continue Lispro SS with AC FS (3) Hyperlipidemia Comment: -LDL 50 in August -Continue atorvastatin (4) Hypothyroidism Comment: -TSH WNL; T4 elevated -Continue levothyroxine at 50; will consider dose adjustment at discharge (5) DVT prophylaxis Comment: -Continue heparin SQ Status and Disposition: Observation. Discharge when stable. Awaiting MRI, neuro consult.
[2019-04-08] MEDS: Atorvastatin* 40 MG TAB PO SCH (17:46)
[2019-04-08] MEDS: Acetaminophen TAB* 325 MG PO PRN (20:55)
[2019-04-09 05:08] LABS: Hematocrit 36 % (35-47); Hemoglobin 12.3 g/dL (12.0-16.0); Mean Corpuscular HGB Conc 34 g/dL (31-36); Mean Corpuscular Hemoglobin 31 pg (27-31); Mean Corpuscular Volume 91 fL (80-97); Mean Platelet Volume 8.7 fL (7.4-10.4); Platelet Count 254 10^3/uL (150-450); Red Blood Count 3.96 10^6 /uL (3.70-4.87); Red Cell Distribution Width 14 % (10-15); White Blood Count 6.8 10^3/uL (3.5-10.8)
[2019-04-09 05:29] LABS: BUN/Creatinine Ratio 28.5 (8-20); Calcium 9.4 mg/dL (8.6-10.3); EGFR African American 50.3 (>60); EGFR Non-African American 41.6 (>60); Potassium 4.1 mmol/L (3.5-5.0)
[2019-04-09] MEDS: Levothyroxine TAB* 50 MCG TAB PO SCH (05:54)
[2019-04-09] MEDS: Heparin VIAL(*) 5000 UNITS/ML VIAL (FIVE THOUSAND) SUBCUT SCH ×3 (05:56→21:15)
[2019-04-09] MEDS: Insulin LISPRO* 1 UNITS UNIT SUBCUT SCH ×4 (08:27→18:57)
[2019-04-09] MEDS: Aspirin EC TAB* 81 MG TAB.EC PO SCH (09:40)
[2019-04-09] MEDS: Ascorbic Acid TAB* 500 MG PO SCH (09:40)
[2019-04-09] MEDS: Acetaminophen TAB* 325 MG PO PRN ×2 (09:40→19:00)
[2019-04-09] MEDS: Cholecalciferol TAB* 1000 UNITS PO SCH (09:40)
[2019-04-09] MEDS: Insulin GLARGINE(*) 1 UNITS UNIT SUBCUT SCH (09:40)
[2019-04-09] MEDS ORDERED: Iodixanol* (CONTRAST) 320 MG/ML 100 ML SDV IV SCH (11:06)
--- NOTE | 2019-04-09 11:26 | PN ---
Subjective Date of Service: 04/09/19 Length of Stay: 3 Days Interval History: 84 y/o female patient examined at the bedside today. She states that she is doing well. She states her speech is improved. She denies weakness to the right or leg arm or leg. She denies facial weakness. She denies vision changes. Review of Systems: Denied CP, SOB, or palpitations. Objective Active Medications: Acetaminophen (Tylenol Tab*) 650 mg PO Q6H PRN PRN Reason: PAIN - MILD Last Admin: 04/09/19 09:40 Dose: 650 mg Ascorbic Acid (Vitamin C Tab*) 500 mg PO DAILY [facility] Last Admin: 04/09/19 09:40 Dose: 500 mg Aspirin (Aspirin Ec Tab*) 81 mg PO DAILY [facility] Last Admin: 04/09/19 09:40 Dose: 81 mg Atorvastatin Calcium (Lipitor*) 40 mg PO QPM [facility] Last Admin: 04/08/19 17:46 Dose: 40 mg Cholecalciferol (Vitamin D Tab*) 2,000 units PO DAILY [facility] Last Admin: 04/09/19 09:40 Dose: 2,000 units Dextrose (D50w Syringe 50 Ml*) 12.5 gm IV PUSH .FOR FS < 60 - SS PRN PRN Reason: FS < 60 Heparin Sodium (Porcine) (Heparin Vial(*)) 5,000 units SUBCUT Q8HR [facility] Last Admin: 04/09/19 05:56 Dose: 5,000 units Insulin Glargine (Lantus(*)) 40 units SUBCUT QAM [facility] Last Admin: 04/09/19 09:40 Dose: 40 units Insulin Human Lispro (Humalog*) 0 units SUBCUT AC [facility]; Protocol Last Admin: 04/09/19 08:27 Dose: Not Given Iodixanol (Visipaque* 320 (Contrast)) 80 ml IV ONCE [facility] Stop: 04/11/19 11:05 Levothyroxine Sodium (Synthroid Tab*) 50 mcg PO DAILY@0600 [facility] Last Admin: 04/09/19 05:54 Dose: 50 mcg Vital Signs 04/08/19 04/08/19 04/08/19 15:17 19:15 20:00 Temperature 97.9 F 99.0 F Pulse Rate 97 97 Respiratory 16 18 18 Rate Blood Pressure 146/62 147/71 (mmHg) O2 Sat by Pulse 98 96 Oximetry 04/08/19 04/09/19 23:15 03:15 Temperature 98.2 F 97.5 F Pulse Rate 94 82 Respiratory 17 16 Rate Blood Pressure 126/42 142/57 (mmHg) O2 Sat by Pulse 94 98 Oximetry Intake and Output Last 24 Hours 04/07/19 04/08/19 04/09/19 04/10/19 06:59 06:59 06:59 06:59 Intake Total 240 1080 720 Output Total 300 0 Balance -60 1080 720 Weight 156 lb 152 lb 1.6 oz 156 lb 4.8 oz 156 lb Intake: Oral 240 1080 720 Output: Urine 300 0 Other: Estimated Void Small Small # Bowel Movements 1 Estimated Stool Amount Small Medium # Voids 1 2 Oxygen Devices in Use Now: None Neurology Exam: General: Well nourished, well developed, and in no acute distress HEENT: Normocephelic/atraumatic, sclera anicteric, mucous membranes moist, poor dentition Neck: Supple Chest: Clear to auscultation bilaterally Cardiovascular: Regular rate and rhythm without murmurs, rubs, gallops Abdomen: Soft, non-tender/non-distended Extremities: No clubbing, cyanosis, or edema Neurological Findings: Awake, alert, and oriented to person, place, and time. Speech: fluent with slurring noted, no expressive or receptive aphasia noted, difficulty with repeating no if's and's or buts' Cranial Nerve: PERRL LEFT EYE BLIND. EOM intact, Left eye blind, unable to see left peripheral michelle, no nystagmus, face symmetric bilaterally, facial sensation intact, hearing intact to finger rub bilaterally, palate elevates symmetrically, tongue midline, SCM and Trapezius 5/5. Motor: 5/5 throughout, proximal and distal extremities x4 tone/bulk normal Sensation: intact to LT/PP bilaterally upper and lower extremities, decrease proprioception to the feet, Deep Tendon Reflex: trace symmetric in the upper/lower extremities, Babinski - down going Finger to nose, HTS intact, difficulty with finger tapping noted, no dysdiadochokinesia Gait: wide based, walking with a walker, unable to arrise from chair unassisted , Result Diagrams: 04/09/19 04:40 04/09/19 04:40 Microbiology and Other Data: Microbiology 04/06/19 13:58 Urine Culture - Final Urine Assessment/Plan Assessment: 84yof PMHx DM II, HLD, hypothyroid presents with weakness, dysarthria, frequent falls. Status and Disposition: 84 y/o female patient [place] [facility] [place] complaints of weakness and slurred speech. It was reported that the patient has been having frequent falls an mri was obtained an acute to subacute CVA was noted. 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 : Speech with dysarthira note today, improved per patient : Recommend ASA/Plavix for 30 days that ASA only : No afib noted on Tele : Would check CTA head and neck, : would check ECHO with bubble study : Strive for LDL less than 70 : Strive for good DM control : strive for good Bp control : continue tele : continue to neuro checks for not : recommend PT/OT/Speech : may need Subacute rehab Falls : could be secondary to a neuropathy related to her DM : b12, and tsh stable : further workup as outpatient for neuropathy : would continue PT for gait training DM : per hospitalist LDL : goal LDL less than 70 Hypothyroid : per hospitalist Would recommend plavix and asa for 30 days than asa only,further recommendations based on CTA head and neck, and echo, would consider sub acute rehab ECHO Show no pfo CTA shows 70 percent carotid artery stenosis would recommend statin asa and plavix for 30 days then asa only. she will need follow up with vascular surgery as outpatient, from our standpoint we will sign off at this point and she will need outpatient neurology follow up in 6-8 weeks
[2019-04-09 12:05] LABS: HDL Cholesterol 37.3 mg/dL
[2019-04-09] MEDS: Clopidogrel TAB* 75 MG PO SCH (13:54)
--- NOTE | 2019-04-09 15:20 | PN ---
Subjective Date of Service: 04/09/19 Interval History: Patient and aid feels as if her speech is very much improved. Patient was able to walk around the unit once. Patient denies F/C, CP, Palpitations, N/V, dizziness, falls, new weakness, difficulty swallowing, or other pain. Patient would now be amenable to rehab at [facility], [place], for one week only. Family History: Unchanged from Admission Social History: Unchanged from Admission Past Medical History: Unchanged from Admission Objective Active Medications: Acetaminophen (Tylenol Tab*) 650 mg PO Q6H PRN PRN Reason: PAIN - MILD Last Admin: 04/09/19 09:40 Dose: 650 mg Ascorbic Acid (Vitamin C Tab*) 500 mg PO DAILY [facility] Last Admin: 04/09/19 09:40 Dose: 500 mg Aspirin (Aspirin Ec Tab*) 81 mg PO DAILY [facility] Last Admin: 04/09/19 09:40 Dose: 81 mg Atorvastatin Calcium (Lipitor*) 40 mg PO QPM [facility] Last Admin: 04/08/19 17:46 Dose: 40 mg Cholecalciferol (Vitamin D Tab*) 2,000 units PO DAILY [facility] Last Admin: 04/09/19 09:40 Dose: 2,000 units Clopidogrel Bisulfate (Plavix Tab*) 75 mg PO DAILY [facility] Last Admin: 04/09/19 13:54 Dose: 75 mg Dextrose (D50w Syringe 50 Ml*) 12.5 gm IV PUSH .FOR FS < 60 - SS PRN PRN Reason: FS < 60 Heparin Sodium (Porcine) (Heparin Vial(*)) 5,000 units SUBCUT Q8HR [facility] Last Admin: 04/09/19 13:55 Dose: 5,000 units Insulin Glargine (Lantus(*)) 40 units SUBCUT QAM [facility] Last Admin: 04/09/19 09:40 Dose: 40 units Insulin Human Lispro (Humalog*) 0 units SUBCUT AC [facility]; Protocol Last Admin: 04/09/19 14:11 Dose: 2 units Iodixanol (Visipaque* 320 (Contrast)) 80 ml IV ONCE [facility] Stop: 04/11/19 11:05 Last Admin: 04/09/19 11:53 Dose: 80 ml Levothyroxine Sodium (Synthroid Tab*) 50 mcg PO DAILY@0600 [facility] Last Admin: 04/09/19 05:54 Dose: 50 mcg Vital Signs - 8 hr 04/09/19 04/09/19 07:49 08:00 Temperature 97.2 F Pulse Rate 87 Respiratory 20 16 Rate Blood Pressure 144/63 (mmHg) O2 Sat by Pulse 98 Oximetry Oxygen Devices in Use Now: None Appearance: Patient is an 84yo female who appears older than stated age and is sitting in the bed in NAD. Eyes: No Scleral Icterus, PERRLA Ears/Nose/Mouth/Throat: NL Teeth, Lips, Gums, Clear Oropharnyx, Mucous Membranes Moist Neck: NL Appearance and Movements; NL JVP, Trachea Midline Respiratory: Symmetrical Chest Expansion and Respiratory Effort, Clear to Auscultation Cardiovascular: NL Sounds; No Murmurs; No JVD, RRR, No Edema Abdominal: NL Sounds; No Tenderness; No Distention, No Hepatosplenomegaly Lymphatic: No Cervical Adenopathy Extremities: No Edema, No Clubbing, Cyanosis Skin: No Rash or Ulcers, No Nodules or Sclerosis Neurological: Alert and Oriented x 3, NL Sensation, - - Diffusely weak, CN II- XII intact. Result Diagrams: 04/09/19 04:40 04/09/19 04:40 Microbiology and Other Data: Microbiology 04/06/19 13:58 Urine Culture - Final Urine Assess/Plan/Problems-Billing Assessment: 84yof PMHx DM II, HLD, hypothyroid presents with weakness, dysarthria, frequent falls and was found to have a stroke. - Patient Problems (1) Weakness Current Visit: Yes Status: Acute Code(s): R53.1 - WEAKNESS SNOMED Code(s) : 50325075 Comment: -Pt with weakness, increase in falls; without focal neuro deficit; HA1c 6.6, LDL well controlled at 50 -MRI shows acute/subacute infarct without hemorrhage or mass effect -CTA shows Left Carotid Stenosis, Neuro recommends outpatient follow up. -Tele shows NSR - ASA 81 and Plavix for 30 days. -PT ordered and following, now amenable to [facility] - Echo pending. (2) DM II (diabetes mellitus, type II), controlled Current Visit: Yes Status: Acute Code(s): E11.9 - TYPE 2 DIABETES MELLITUS WITHOUT COMPLICATIONS SNOMED Code(s): 88314393 Comment: -Well controlled -Continue glargine 40 -Hold metformin -Continue Lispro SS with AC FS (3) Hyperlipidemia Current Visit: Yes Status: Acute Code(s): E78.5 - HYPERLIPIDEMIA, UNSPECIFIED SNOMED Code(s): 61739241 Comment: -LDL 50 in August -Continue atorvastatin (4) Hypothyroidism Current Visit: Yes Status: Acute Code(s): E03.9 - HYPOTHYROIDISM, UNSPECIFIED SNOMED Code(s): 38342592 Comment: -TSH Elevated; T4 WNL -Continue levothyroxine at 50; will consider dose adjustment at discharge (5) DVT prophylaxis Current Visit: Yes Status: Acute Code(s): Z29.9 - ENCOUNTER FOR PROPHYLACTIC MEASURES, UNSPECIFIED SNOMED Code(s): 133888994 Comment: -Continue heparin SQ Status and Disposition: Inpatient, Now amenable to [facility] awaiting possible bed offers.
--- NOTE | 2019-04-09 15:24 | ECHO ---
*[facility]* [place] [address] Fax #: [phone] Transthoracic Echocardiogram Patient: Kerline Saba : 1935 Study Date: 04/09/2019 Age: 84 Gender: F HR: 88 bpm Height: 63 in /160 cm BSA: 1.74 m^2 Weight: 155.7 lb /70.8 kg BMI: 27.6 kg/m^2 *Lipcoat Sprayer: * Annie Otero [facility] *Referring Physician: * O'Kellie Swan *Reading Physician: * Kirsty Mota MD Indications: CVA. History: Risk factors: Hypertension. Diabetes mellitus. Dyslipidemia. Hypothyroidism. Conclusions Summary: - Left ventricle: Systolic function is normal. The estimated ejection fraction is 60-65%. Doppler parameters are consistent with elevated ventricular end-diastolic filling pressure. - Right ventricle: The cavity size is normal. Wall thickness is mildly increased. Systolic function is normal. - Atrial septum: No patent foramen ovale or CP shunt demonstrated by color Doppler or agitated saline contrast. - Mitral valve: There is mild regurgitation. - Aortic valve: The findings are consistent with mild stenosis. The mean systolic gradient is 6.0 mm Hg. The valve area by the velocity-time integral method is 1.52 cm^2. The valve area by the peak velocity method is 1.63 cm^2. - Tricuspid valve: There is trace to mild regurgitation. - Pulmonary arteries: The peak pressure during systole by Doppler is 18.0 mm Hg. - No prior echocardiogram to compare. Study data: Transthoracic echocardiogram. Procedure: Transthoracic echocardiography was performed. Image quality was fair. Complete 2D, spectral Doppler, and color flow Doppler. Location: Bedside. Patient status: Inpatient. Patient room number: 433. Rhythm: Normal sinus rhythm. Findings Left ventricle: The cavity size is below normal. Wall thickness is normal. Systolic function is normal. The estimated ejection fraction is 60-65%. Wall motion is normal; there are no regional wall motion abnormalities. Doppler parameters are consistent with abnormal left ventricular relaxation (grade 1 diastolic dysfunction). Doppler parameters are consistent with elevated ventricular end-diastolic filling pressure. Right ventricle: The cavity size is normal. Wall thickness is mildly increased. The moderator band is in a normal position. Systolic function is normal. Systolic pressure is within the normal range. Left atrium: The atrium is mildly dilated. Right atrium: The atrium is normal in size. Atrial septum: A PFO is not demonstrated by color Doppler or agitated saline contrast. Negative bubble study. Images 91 and 92. Mitral valve: The posterior mitral valve annulus appears mildly calcified. The anterior mintral valve leaflet is mildly thickened and mildly calcified. The findings are consistent with mild stenosis. There is mild regurgitation. Aortic valve: Poorly visualized. The leaflets are moderately thickened. The findings are consistent with mild stenosis. There is trace regurgitation. Tricuspid valve: The leaflets are normal thickness. There is no evidence of stenosis. There is trace to mild regurgitation. Pulmonic valve: The leaflets are normal thickness. There is no evidence of stenosis. There is trace regurgitation. Aorta: Ascending aorta: The ascending aorta is appears normal. The aortic root appears normal. The aortic arch appears normal. Pericardium: A prominent pericardial fat pad is present. There is no significant pericardial effusion. Pulmonary arteries: The main pulmonary artery is normal-sized. Systolic pressure is within the normal range. Pulmonary artery pressure may be underestimated Systemic veins: Inferior vena cava: The vessel is normal in size. There is (>= 50%) respiratory change in the IVC dimension. Measurements Left ventricle Value Ref Aortic valve Value Ref BELIA, LAX (L) 3.5 cm 3.8 - 5.2 Kerline diam, ED 1.9 cm ----- ESD, LAX (L) 2.0 cm 2.2 - 3.5 Peak v, S 1.7 m/sec ----- FS, LAX 42 % 27 - 45 VTI, S 33.0 cm ----- PW, ED, LAX 0.9 cm 0.6 - 0.9 Mean grad, S 6.0 mm Hg ----- FS 42 % 27 - 45 Peak grad, S 11.6 mm Hg ----- PW, ED 0.9 cm 0.6 - 0.9 LVOT/AV, VTI ratio 0.48 ----- E', lat kerline, TDI (L) 5.8 cm/sec >=10.0 JUAN, VTI 1.52 cm^2 --- -- E/e', lat kerline, 15 JUAN, Vmax 1.63 cm^2 ----- TDI E', med kerline, TDI (L) 6.0 cm/sec >=7.0 Mitral valve Value Ref E/e', med kerline, 15 Peak E 0.89 m/sec ----- TDI Peak A 1.31 m/sec ----- E', avg, TDI 5.9 cm/sec Decel time 197 ms ----- E/e', avg, TDI (H) 15 <=14 PHT 85 ms --- -- Mean grad, D 3.0 mm Hg ----- LVOT Value Ref Peak grad, D 7.0 mm Hg ----- Diam, S 2.00 cm Peak E/A ratio 0.7 ----- Area 3.1 cm^2 MVA, PHT 2.4 cm^2 ----- Peak audra, S 0.88 m/sec VTI, S 16.0 cm Pulmonic valve Value Ref Mean grad, S 2 mm Hg Peak v, S 1.11 m/sec ----- SV 49 ml Peak grad, S 5.0 mm Hg ----- SV/bsa 28 ml/m^2 Tricuspid valve Value Ref Ventricular septum Value Ref TR peak v 2.22 m/sec <=2.8 IVS, ED (H) 1.0 cm 0.6 - 0.9 Peak RV-RA grad, S 20 mm Hg ----- Right ventricle Value Ref Aortic root Value Ref AW thickness, ED (H) 0.6 cm 0.1 - 0.5 Root diam 2.7 cm <3.9 BELIA, LAX 2.0 cm BELIA minor ax, A4C (H) 4.0 cm 1.9 - 3.5 Ascending aorta Value Ref mid AAo AP diam, S 2.5 cm ----- Pressure, S 23 mm Hg Aortic arch Value Ref Left atrium Value Ref Arch diam 2.1 cm ----- AP dim, ES (L) 2.40 cm 2.70 - 3.80 Decending aorta Value Ref ML dim, A4C 4.1 cm Suhail peak audra 1.2 m/sec ----- SI dim, A4C 5.3 cm Vol/bsa, ES, 1-p 32 ml/m^2 11 - 40 Pulmonary artery Value Ref A4C Pressure, S 18.0 mm Hg ----- Vol/bsa, ES, A/L (H) 35 ml/m^2 16 - 34 Inferior vena cava Value Ref Right atrium Value Ref Diam 1.5 cm ----- SI dim, ES 4.6 cm 3.4 - 5.3 ML dim, ES, A4C 3.9 cm 2.6 - 4.4 SI dim, ES, A4C 4.6 cm 3.4 - 5.3 SI dim/bsa, ES, 2.7 cm/m^2 1.9 - 3.1 A4C Estimated RAP 3 mm Hg Legend: (L) and (H) danette values outside specified reference range. Prepared and electronically signed by Kirsty Mota MD 04/09/2019 15:23
[2019-04-09] MEDS: Atorvastatin* 40 MG TAB PO SCH (19:00)
[2019-04-10] MEDS: Acetaminophen TAB* 325 MG PO PRN (01:38)
[2019-04-10] MEDS ORDERED: Nitroglycerin TAB 0.4 MG* 0.4 MG TAB SL PRN (03:53)
[2019-04-10 04:26] LABS: ABS Basophils 0.1 10^3/ul (0-0.2); ABS Eosinophils 0.4 10^3/ul (0-0.6); ABS Monocytes 0.6 10^3/ul (0-0.8); ABS Neutrophils 3.2 10^3/ul (1.5-7.7); Eosinophil % 5.8 %; Hematocrit 38 % (35-47); Hemoglobin 11.9 g/dL (12.0-16.0); Lymphocyte % 31.3 %; Mean Corpuscular HGB Conc 32 g/dL (31-36); Mean Corpuscular Hemoglobin 31 pg (27-31); Mean Corpuscular Volume 97 fL (80-97); Mean Platelet Volume 8.4 fL (7.4-10.4); Nucleated Red Blood Cells % 0.1; Platelet Count 262 10^3/uL (150-450); Red Cell Distribution Width 15 % (10-15); White Blood Count 6.2 10^3/uL (3.5-10.8)
[2019-04-10 04:39] LABS: BUN/Creatinine Ratio 26.7 (8-20); Calcium 9.6 mg/dL (8.6-10.3); EGFR African American 51.8 (>60); EGFR Non-African American 42.8 (>60); Potassium 4.3 mmol/L (3.5-5.0)
[2019-04-10 05:30] VITALS: BP 144/80
[2019-04-10] MEDS: Levothyroxine TAB* 50 MCG TAB PO SCH (06:04)
[2019-04-10] MEDS: Heparin VIAL(*) 5000 UNITS/ML VIAL (FIVE THOUSAND) SUBCUT SCH ×2 (06:05→13:39)
[2019-04-10] MEDS: Insulin GLARGINE(*) 1 UNITS UNIT SUBCUT SCH (09:41)
[2019-04-10] MEDS: Cholecalciferol TAB* 1000 UNITS PO SCH (09:41)
[2019-04-10] MEDS: Clopidogrel TAB* 75 MG PO SCH (09:41)
[2019-04-10] MEDS: Aspirin EC TAB* 81 MG TAB.EC PO SCH (09:41)
[2019-04-10] MEDS: Ascorbic Acid TAB* 500 MG PO SCH (09:41)
[2019-04-10] MEDS: Insulin LISPRO* 1 UNITS UNIT SUBCUT SCH ×2 (09:42→13:38)
--- NOTE | 2019-04-10 12:59 | DS ---
AMENDED REPORT NOW INCLUDES DESIGNATED COSIGNER CC: Dr. Mckeon; [facility] [place] * DATE OF ADMISSION: 04/07/2019. DATE OF DISCHARGE: 04/10/2019. PRIMARY CARE PHYSICIAN: Dr. Mckeon. ATTENDING PHYSICIAN: Dr. Fisher * (dictated by Panfilo Hackett NP). PRIMARY DIAGNOSIS: 1. Acute/subacute infarct involving the left posterior limb of the internal capsule. 2. Left carotid stenosis. 3. Weakness. 4. Diabetes. 5. Hyperlipidemia. 6. Hypothyroid. 7. Urinary incontinence. 8. Hearing loss. 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 10. Significant decreased vision in the right eye. CONSULTATIONS WHILE IN THE HOSPITAL: 1. Dr. Elton Gomez, Neurology. 2. Bakari Reed NP, Neurology. STUDIES WHILE IN THE HOSPITAL: 1. EKG: Sinus rhythm. 2. Brain CT: Involutional change and stigmata of chronic small vessel ischemic disease. No traumatic injury or acute intracranial process evident. 3. Chest x-ray: Stigmata of obstructive lung disease. No traumatic injury or acute pulmonary or cardiac process evident. 4. Cervical spine CT: No CT evidence for traumatic cervical spine injury. 5. Lumbar spine x-ray: Negative for lumbosacral spine fracture. 6. Pelvic x-ray: Negative for fracture. 7. Thoracolumbar spine: No radiographic evidence for traumatic injury of the thoracic lumbar junction. 8. Brain MRI: Acute/subacute infarct involving the left posterior limb of the internal capsule. No evidence of hemorrhage or mass effect. Areas of microvascular leukoencephalopathy involving the subcortical and periventricular white matter. This is associated with age-related cerebral cortical atrophy. No intracranial hemorrhage, mass or obstructive hydrocephalus. Left phthisis bulbi. 9. Transthoracic echo: Left ventricle: Systolic function is normal; the estimated ejection fraction is 60 to 65 percent; Doppler parameters are consistent with elevated ventricular end-diastolic filling pressure. Right ventricle: The cavity size is normal; wall thickness is mildly increased; systolic function is normal. Atrial septum: No patent foramen ovale or CP shunt demonstrated by color Doppler or agitated saline contrast. Mitral valve: There is mild regurgitation. Aortic valve: The findings are consistent with mild stenosis; the mean systolic gradient is 6.0 mmHg. Tricuspid valve: There is trace to mild regurgitation. Pulmonary arteries: The peak pressure during systole by Doppler is 18.0 mmHg. No prior echocardiogram to compare. 10. Head CTA: Impression: Atherosclerosis. Approximately 70 percent short segment stenosis of the proximal left internal carotid artery by NASCET criteria. Chronic small vessel ischemic change. No aneurysm, vascular malformation, occlusion, or stenosis of the visualized intracranial circulation. DISCHARGE HOME MEDICATIONS: New home medications: 1. Aspirin 81 mg p.o. daily times 30 days. 2. Plavix 75 mg p.o. daily times 30 days. *After 30 days, the patient should continue aspirin 81 mg p.o. daily only and discontinue Plavix. Continued home medications: 1. Lisinopril 10 mg p.o. daily. 2. Cymbalta 60 mg p.o. daily. 3. Pepcid 40 mg p.o. daily. 4. Zocor 40 mg p.o. q.p.m. 5. Calcium Carbonate/vitamin D one tab p.o. b.i.d. 6. Vitamin D 2,000 units p.o. daily. 7. Vitamin C 500 units p.o. daily. 8. Acetaminophen 500 mg p.o. q.6 hours prn. 9. Ibuprofen 400 mg p.o. q.6 hours prn. 10. Metformin 1,000 mg p.o. q.a.m. 11. Levothyroxine 50 mcg p.o. q.a.m. 12. Insulin Glargine 49 units subcu q.a.m. HISTORY OF PRESENT ILLNESS/HOSPITAL COURSE: Ms. Saba is an 84-year-old female with a past medical history significant for type 2 diabetes, hypothyroid , and hyperlipidemia who presented to the emergency department on 04/06/2019 with complaints of weakness and possibly dysarthria. Please see the history and physical dictated by Eunice Lazo NP for a complete summary of events leading up to the hospital. In short, the patient reported frequent falls over the past five to six months and was noted to have some dysarthria. While in the emergency room, the patient's labs were essentially normal. Given the dysarthria and weakness, Dr. Gomez was consulted while the patient was in the emergency room and he recommended MRI of the brain and the patient to be admitted for observation. The patient was admitted to the telemetry floor. While on telemetry, the patient has remained in sinus rhythm. The patient's vital signs have remained stable as she is afebrile, not tachypneic, and oxygenating well on room air. She does note to have occasional tachycardia with the highest being 103. The patient is also noted to be mildly hypertensive occasionally, but this could be secondary to the fact that we have been holding the patient's blood pressure medications. During this hospital stay, the patient has also been evaluated by physical therapy and occupational therapy who deemed the patient would benefit from a subacute rehab facility. In addition, the patient has had routine lab work with repeat CBC's which have been unremarkable and repeat BMP's which have been unremarkable with the exception of a slightly elevated creatinine most recently of 1.20. It should be noted that this is near the patient's baseline since 01/07/2004. In addition , the patient has had a slightly elevated BUN at 32. Otherwise the patient's basic metabolic panels have been unremarkable. In addition, the patient had a lipid panel which revealed triglycerides of 252, cholesterol 109, LDL 31, HDL 37.3 as part of her work-up. Finally, the patient was evaluated by Neurology given her complaints of weakness and noted dysarthria. As mentioned above, the patient underwent an MRI which revealed acute/subacute infarct without hemorrhage or mass effect. Neurology recommended CTA and echo with bubble study. As mentioned above, CT revealed left carotid stenosis. The patient is encouraged to follow-up as an outpatient given this left carotid stenosis. As for the echo, it was fairly unremarkable as she does not have a patent PFO. The patient's hospitalization was complicated as last night she did report to the nurses that she was having chest pressure in the left upper extremity radiating across her chest. The on-call physician was contacted and stat troponins were obtained. The patient also had a stat EKG. Her initial troponin was 0.01 at 0410; repeat troponin of 0.00 at 0708, and 0.01 at 0945. Her EKGs have been unremarkable and revealed no EKG changes. The patient is currently symptom free The patient is stable for discharge to [facility]. Vital signs: Temperature 97.7, heart rate 88, respiratory rate 15, O2 saturation 98 percent on room air, blood pressure 144/80. REVIEW OF SYSTEMS: The patient does report left biceps pain and reports it is worse with movement. She reports it is 1/10. The patient denies chest pain, chest pressure, left arm pressure, nausea, vomiting, diaphoresis, dizziness, headache, and palpitations. A 14 point review of systems was complete and all were negative. PHYSICAL EXAMINATION: General: Ms. Saba is an 84-year-old female sitting in a recliner. She appears to be in no acute distress. She appears her stated age. HEENT: EOM's intact in the right eye. Left eye cannot be assessed. Oral mucosa is moist without lesions. Posterior pharynx is clear. Neck: Supple. Cardiac: S1, S2 present. Regular rate and rhythm. No murmurs, rubs, or gallops. Respiratory: Lungs are clear. Good aeration. No wheezes, rhonchi's or rubs. Abdomen: Soft, nontender. Bowel sounds normoactive. Extremities: No edema. No clubbing or cyanosis. Pedal pulses 2+ bilaterally. Musculoskeletal: The patient reports some pain with movement of the left shoulder. Otherwise, no pain or deformities. Skin: Grossly intact. Neuro: Cranial nerves II through XII are grossly intact with the exception of the left eye as this is a baseline disability. Strength is 5/5 in the upper and lower extremities. Mild dysarthria noted. LABORATORY DATA: WBC 6.2, hemoglobin 11.9, hematocrit 38, platelets 262; sodium 138, potassium 4.3, chloride 105, carbon dioxide 25, BUN 32, creatinine 1.20, glucose 154, magnesium 2.0, B12 666, folate 13.65, TSH 5.98, free T4 0.92. DISCHARGE PLAN: 1. Acute/subacute infarct involving the left posterior limb of the internal capsule: The patient has mild dysarthria noted today, but the patient reports it is improved. The patient will be discharged to [facility] for PT/OT. The patient should continue aspirin and Plavix for 30 days, then after 30 days aspirin only. The patient should follow-up with Neurology in six to eight weeks. The patient should strive for an LDL goal of less than 70, good diabetic control, good BP control. 2. Left carotid stenosis: As mentioned above during the patient's TIA/stroke work- up, she did have a CTA which revealed left carotid stenosis. The patient should follow-up as an outpatient with her primary care and a vascular surgeon. The patient will need a referral for a vascular surgeon. The patient should continue her Plavix and aspirin as mentioned above. 3. Weakness: We suspect this is secondary to her acute/subacute infarct. The patient will be discharged to [facility] for PT/OT. 4. Diabetes: The patient is well-controlled. She should continue her Metformin and her Glargine. 5. Hyperlipidemia: The patient should continue her Atorvastatin as mentioned above. The patient has a goal of an LDL less than 70. 6. Hypothyroidism: The patient has a slightly elevated TSH, but given her acute illness I am holding on adjusting her dose. I would recommend a repeat TSH in four to six weeks. 7. Atypical chest pain: Patient is currently chest pain free. She does have left shoulder pain that increases with movement and she rates at a "2" out of 10. Cardiac work up has been unremarkable. I 7. Follow-up: The patient should follow-up with Neurology in six to eight weeks. The patient will need a follow-up with a vascular surgeon as an outpatient. The patient can obtain this referral from her primary care and/or neurologist. The patient should be seen by her primary care and/or provider at [facility] in one to three days. I recommend the patient have repeat labs, including a BMP in one to two weeks given her elevated creatinine, once again which is baseline but we are restarting her medications of Lisinopril which might cause a slight bump in creatinine. I would encourage this to be monitored. 8. Education: The patient was educated on the signs and symptoms of new or worsening conditions and when to return to the emergency department. Patient stated understanding. This is a summarized report of a complex medical history and hospital stay. For further details, please see entire medical record. TIME SPENT: Approximately 40 minutes were spent on this discharge, greater than half that time was spent [id number] with the patient discussing discharge plans and instructions. This plan was discussed with my attending, Dr. Fisher, who is in agreement with my plan of care. Reviewed by PANFILO HACKETT, SHIRLEY 04/10/19 @ 1342 [id number]/[facility] #: [id number] YAMILE
== END 2019-04-10 14:30 | DRG 66 ==
LOC: ED 11:32 → MEDTELE 15:58 → OBSVTOIN 04-07 20:00
PROVIDERS: ADMIT Internal Medicine; ATTEND Hospitalist
DX: I63.9 Cerebral infarction, unspecified (principal); E11.42 Type 2 diabetes mellitus with diabetic polyneuropathy; R53.1 Weakness; R47.1 Dysarthria and anarthria; E03.9 Hypothyroidism, unspecified; E78.5 Hyperlipidemia, unspecified; R32 Unspecified urinary incontinence; I65.22 Occlusion and stenosis of left carotid artery; H91.90 Unspecified hearing loss, unspecified ear; H54.40 Blindness, one eye, unspecified eye; I69.322 Dysarthria following cerebral infarction; Z91.81 History of falling; Z79.84 Long term (current) use of oral hypoglycemic drugs; Z79.1 Long term (current) use of non-steroidal anti-inflammatories (NSAID); Z79.4 Long term (current) use of insulin; Z79.899 Other long term (current) drug therapy; Z88.1 Allergy status to other antibiotic agents; Z88.0 Allergy status to penicillin; Z88.2 Allergy status to sulfonamides; Z82.49 Family history of ischemic heart disease and other diseases of the circulatory system; Z80.1 Family history of malignant neoplasm of trachea, bronchus and lung
CPT/HCPCS: 36415; 70450; 70496; 70498; 70551; 71045; 72080; 72100; 72125; 72170; 80048; 80053; 80061; 80329; 81003; 81015; 82607; 82746; 83036; 83735; 84439; 84443; 84484; 85025; 85027; 87086; 93005; 93306; 99285; A9270-GY; G0378; G0480; G8978-GP-CI; G8978-GP-CJ; G8979-GP-CI; J1644; Q9967

== ENCOUNTER 2020-07-31 20:10 | Inpatient (IN) ==
[2020-07-31 21:22] LABS: ABS Basophils 0.1 10^3/ul (0-0.2); ABS Eosinophils 0.2 10^3/ul (0-0.6); ABS Lymphocytes 1.1 10^3/ul (1.0-4.8); ABS Monocytes 0.6 10^3/ul (0-0.8); ABS Neutrophils 5.2 10^3/ul (1.5-7.7); Eosinophil % 2.2 %; Hematocrit 36 % (35-47); Lymphocyte % 15.5 %; Mean Corpuscular HGB Conc 34 g/dL (31-36); Mean Corpuscular Hemoglobin 29 pg (27-31); Mean Corpuscular Volume 87 fL (80-97); Mean Platelet Volume 9.6 fL (7.4-10.4); Platelet Count 199 10^3/uL (150-450); Red Blood Count 4.09 10^6 /uL (3.70-4.87); Red Cell Distribution Width 15 % (10-15); White Blood Count 7.1 10^3/uL (3.5-10.8)
[2020-07-31 21:40] LABS: Albumin/Globulin Ratio 1.3 (1-3); BUN/Creatinine Ratio 18.9 (8-20); C Reactive Protein 12.84 mg/L (<8.01); Calcium 9.1 mg/dL (8.6-10.3); EGFR African American 40.6 (>60); EGFR Non-African American 33.5 (>60); Potassium 4.5 mmol/L (3.5-5.0); Total Bilirubin 0.4 mg/dL (0.2-1.0)
[2020-07-31 21:41] LABS: Troponin I 0.01 ng/mL (<0.03)
[2020-07-31 21:59] LABS: Ferritin 25.8 ng/mL (11-307)
[2020-07-31] MEDS ORDERED: Dextrose 50% Syringe 50 ml 25 GM/50 ML SYRINGE IV PUSH PRN (22:30)
[2020-07-31 23:50] LABS: Urine Appearance Clear; Urine Bilirubin Negative (Negative); Urine Blood Negative (Negative); Urine Color Yellow; Urine Glucose Negative (Negative); Urine Ketones Negative (Negative); Urine Nitrite Negative (Negative); Urine Protein Negative (Negative); Urine Specific Gravity 1.011 (1.010-1.030); Urine Urobilinogen Negative (Negative)
[2020-08-01] MEDS: Enoxaparin 30 MG/0.3 ML SYR SUBCUT SCH (06:05)
[2020-08-01] MEDS: Aspirin EC 81 mg TAB.EC (enteric coated) PO SCH (08:29)
[2020-08-01] MEDS: Cholecalciferol (VIT D3) 1,000 unit TAB PO SCH (08:29)
[2020-08-01] MEDS ORDERED: NS 0.9% 1000 ml BAG 1,000 ML IV SCH (08:30)
[2020-08-01] MEDS: DULoxetine DR 60 mg CAP PO SCH (08:30)
[2020-08-01] MEDS ORDERED: Insulin GLARGINE 100 un/ml 10 ml VIAL SUBCUT SCH (09:00)
[2020-08-01] MEDS: Insulin GLARGINE 100 un/ml 10 ml VIAL SUBCUT SCH (12:41)
[2020-08-02] MEDS: Enoxaparin 30 MG/0.3 ML SYR SUBCUT SCH (06:09)
[2020-08-02] MEDS: DULoxetine DR 60 mg CAP PO SCH (08:13)
[2020-08-02] MEDS: Cholecalciferol (VIT D3) 1,000 unit TAB PO SCH (08:13)
[2020-08-02] MEDS: Aspirin EC 81 mg TAB.EC (enteric coated) PO SCH (08:13)
[2020-08-02] MEDS: Insulin GLARGINE 100 un/ml 10 ml VIAL SUBCUT SCH (13:16)
[2020-08-02] MEDS ORDERED: LORazepam 2 mg VIAL 1 ml ONE (14:02)
[2020-08-02] MEDS: levETIRAcetam 500 MG IVPREMIX 500 MG/100 ML BAG IV SCH (15:08)
[2020-08-02 16:54] LABS: ABS Basophils 0.1 10^3/ul (0-0.2); ABS Eosinophils 0.2 10^3/ul (0-0.6); ABS Lymphocytes 1.3 10^3/ul (1.0-4.8); ABS Monocytes 0.6 10^3/ul (0-0.8); ABS Neutrophils 5.1 10^3/ul (1.5-7.7); Eosinophil % 2.9 %; Hematocrit 40 % (35-47); Hemoglobin 12.8 g/dL (12.0-16.0); Lymphocyte % 17.3 %; Mean Corpuscular HGB Conc 32 g/dL (31-36); Mean Corpuscular Hemoglobin 29 pg (27-31); Mean Corpuscular Volume 89 fL (80-97); Mean Platelet Volume 9.1 fL (7.4-10.4); Platelet Count 240 10^3/uL (150-450); Red Blood Count 4.48 10^6 /uL (3.70-4.87); Red Cell Distribution Width 15 % (10-15); White Blood Count 7.2 10^3/uL (3.5-10.8)
[2020-08-02 17:09] LABS: INR 1.02 (0.82-1.09)
[2020-08-02 17:12] LABS: Albumin 4.1 g/dL (3.2-5.2); Albumin/Globulin Ratio 1.3 (1-3); BUN/Creatinine Ratio 16.5 (8-20); Calcium 9.3 mg/dL (8.6-10.3); EGFR Non-African American 54.6 (>60); Globulin 3.1 g/dL (2-4); Magnesium 1.7 mg/dL (1.9-2.7); Potassium 3.9 mmol/L (3.5-5.0); Total Bilirubin 0.7 mg/dL (0.2-1.0); Total Protein 7.2 g/dL (6.4-8.9)
[2020-08-02] MEDS ORDERED: Magnesium Sulfate 2 gm BAG 2 GM/50 ML BAG IVPB ONE (20:57)
[2020-08-03] MEDS: levETIRAcetam 500 MG IVPREMIX 500 MG/100 ML BAG IV SCH (03:33)
[2020-08-03 07:58] LABS: Hematocrit 41 % (35-47); Hemoglobin 13.3 g/dL (12.0-16.0); Mean Corpuscular HGB Conc 33 g/dL (31-36); Mean Corpuscular Hemoglobin 29 pg (27-31); Mean Corpuscular Volume 89 fL (80-97); Platelet Count 267 10^3/uL (150-450); Red Blood Count 4.57 10^6 /uL (3.70-4.87); Red Cell Distribution Width 14 % (10-15); White Blood Count 8.7 10^3/uL (3.5-10.8)
[2020-08-03 08:14] LABS: BUN/Creatinine Ratio 15.3 (8-20); Calcium 9.1 mg/dL (8.6-10.3); EGFR African American 65.3 (>60); EGFR Non-African American 53.9 (>60); Magnesium 2.2 mg/dL (1.9-2.7); Phosphorus 3.8 mg/dL (2.5-5.0); Potassium 4.3 mmol/L (3.5-5.0)
[2020-08-03] MEDS: Enoxaparin 30 MG/0.3 ML SYR SUBCUT SCH (09:33)
[2020-08-03] MEDS: Aspirin EC 81 mg TAB.EC (enteric coated) PO SCH (10:33)
[2020-08-03] MEDS: Cholecalciferol (VIT D3) 1,000 unit TAB PO SCH (10:33)
[2020-08-03] MEDS: DULoxetine DR 60 mg CAP PO SCH (10:36)
[2020-08-03 11:16] LABS: TSH Ultra Thyroid Stim Horm 2.58 mcIU/mL (0.34-5.60)
[2020-08-03] MEDS ORDERED: Insulin GLARGINE 100 un/ml 10 ml VIAL SUBCUT SCH (13:00)
[2020-08-04] MEDS ORDERED: levETIRAcetam 500 MG IVPREMIX 500 MG/100 ML BAG IV ONE ×2 (00:20→22:36)
[2020-08-04] MEDS: Enoxaparin 30 MG/0.3 ML SYR SUBCUT SCH (05:27)
[2020-08-04] MEDS: Aspirin EC 81 mg TAB.EC (enteric coated) PO SCH (08:58)
[2020-08-04] MEDS: Cholecalciferol (VIT D3) 1,000 unit TAB PO SCH (08:58)
[2020-08-04] MEDS: Nystatin TOP POWDER 15 GM BTL TOPICAL SCH ×2 (10:47→23:15)
[2020-08-05] MEDS: Enoxaparin 30 MG/0.3 ML SYR SUBCUT SCH (06:18)
[2020-08-05] MEDS: Nystatin TOP POWDER 15 GM BTL TOPICAL SCH ×2 (07:51→22:10)
[2020-08-05] MEDS: Aspirin EC 81 mg TAB.EC (enteric coated) PO SCH (07:52)
[2020-08-05] MEDS: Cholecalciferol (VIT D3) 1,000 unit TAB PO SCH (07:52)
[2020-08-05 11:07] LABS: Hematocrit 38 % (35-47); Hemoglobin 12.6 g/dL (12.0-16.0); Mean Corpuscular HGB Conc 33 g/dL (31-36); Mean Corpuscular Hemoglobin 29 pg (27-31); Mean Corpuscular Volume 89 fL (80-97); Platelet Count 283 10^3/uL (150-450); Red Blood Count 4.32 10^6 /uL (3.70-4.87); Red Cell Distribution Width 15 % (10-15); White Blood Count 8.3 10^3/uL (3.5-10.8)
[2020-08-05 11:46] LABS: ALT 11 U/L (7-52); Albumin/Globulin Ratio 1.2 (1-3); Alkaline Phosphatase 67 U/L (34-104); BUN/Creatinine Ratio 23.2 (8-20); Blood Urea Nitrogen 26 mg/dL (6-24); CO2 Carbon Dioxide 22 mmol/L (22-32); Calcium 9.2 mg/dL (8.6-10.3); Chloride 106 mmol/L (101-111); EGFR African American 55.9 (>60); EGFR Non-African American 46.2 (>60); Globulin 3.4 g/dL (2-4); Glucose 105 mg/dL (70-100); Sodium 140 mmol/L (135-145); Total Protein 7.4 g/dL (6.4-8.9)
[2020-08-05 11:47] LABS: Anion Gap 12 mmol/L (2-11)
[2020-08-05 12:38] LABS: Potassium Redraw 4.7 mmol/L (3.5-5.0)
[2020-08-06] MEDS: Enoxaparin 30 MG/0.3 ML SYR SUBCUT SCH (06:01)
[2020-08-06 07:10] LABS: Hematocrit 38 % (35-47); Hemoglobin 12.2 g/dL (12.0-16.0); Mean Corpuscular HGB Conc 32 g/dL (31-36); Mean Corpuscular Hemoglobin 29 pg (27-31); Mean Corpuscular Volume 90 fL (80-97); Platelet Count 254 10^3/uL (150-450); Red Blood Count 4.23 10^6 /uL (3.70-4.87); Red Cell Distribution Width 14 % (10-15); White Blood Count 7.8 10^3/uL (3.5-10.8)
[2020-08-06 07:21] LABS: BUN/Creatinine Ratio 25.2 (8-20); Calcium 9.7 mg/dL (8.6-10.3); EGFR African American 52.2 (>60); EGFR Non-African American 43.1 (>60); Potassium 4.1 mmol/L (3.5-5.0)
[2020-08-06] MEDS: Cholecalciferol (VIT D3) 1,000 unit TAB PO SCH (09:04)
[2020-08-06] MEDS: Nystatin TOP POWDER 15 GM BTL TOPICAL SCH ×2 (09:05→20:57)
[2020-08-06] MEDS: Aspirin EC 81 mg TAB.EC (enteric coated) PO SCH (09:05)
[2020-08-07] MEDS: Enoxaparin 30 MG/0.3 ML SYR SUBCUT SCH (04:46)
[2020-08-07 06:35] LABS: BUN/Creatinine Ratio 21.1 (8-20); Calcium 9.7 mg/dL (8.6-10.3); EGFR African American 57.7 (>60); EGFR Non-African American 47.7 (>60); Potassium 4.2 mmol/L (3.5-5.0)
[2020-08-07] MEDS ORDERED: Magnesium Hydroxide LIQ 30 ML UDC PO ONE (07:06)
[2020-08-07] MEDS: Aspirin EC 81 mg TAB.EC (enteric coated) PO SCH (09:43)
[2020-08-07] MEDS: Cholecalciferol (VIT D3) 1,000 unit TAB PO SCH (09:43)
[2020-08-07] MEDS: Nystatin TOP POWDER 15 GM BTL TOPICAL SCH ×2 (09:44→23:34)
[2020-08-08] MEDS: Enoxaparin 30 MG/0.3 ML SYR SUBCUT SCH (05:55)
[2020-08-08] MEDS ORDERED: Insulin GLARGINE 100 un/ml 10 ml VIAL SUBCUT SCH (09:00)
[2020-08-08] MEDS: Cholecalciferol (VIT D3) 1,000 unit TAB PO SCH (09:52)
[2020-08-08] MEDS: Aspirin EC 81 mg TAB.EC (enteric coated) PO SCH (09:53)
[2020-08-08] MEDS: Nystatin TOP POWDER 15 GM BTL TOPICAL SCH ×2 (09:53→20:50)
[2020-08-08] MEDS: Magnesium Hydroxide LIQ 30 ML UDC PO PRN (17:06)
[2020-08-08] MEDS: Polyethylene Glycol 3350 17 GM PACKET PO PRN (17:06)
[2020-08-09] MEDS: Enoxaparin 30 MG/0.3 ML SYR SUBCUT SCH (05:32)
[2020-08-09] MEDS ORDERED: Insulin GLARGINE 100 un/ml 10 ml VIAL SUBCUT SCH (09:00)
[2020-08-09] MEDS: Magnesium Hydroxide LIQ 30 ML UDC PO PRN (09:16)
[2020-08-09] MEDS: Cholecalciferol (VIT D3) 1,000 unit TAB PO SCH (09:17)
[2020-08-09] MEDS: Aspirin EC 81 mg TAB.EC (enteric coated) PO SCH (09:17)
[2020-08-09] MEDS: Nystatin TOP POWDER 15 GM BTL TOPICAL SCH ×2 (09:19→21:42)
[2020-08-09] MEDS: Polyethylene Glycol 3350 17 GM PACKET PO PRN (09:19)
[2020-08-09] MEDS: Insulin GLARGINE 100 un/ml 10 ml VIAL SUBCUT SCH (09:27)
[2020-08-10] MEDS: Enoxaparin 30 MG/0.3 ML SYR SUBCUT SCH (05:54)
[2020-08-10] MEDS: Cholecalciferol (VIT D3) 1,000 unit TAB PO SCH (08:37)
[2020-08-10] MEDS: Aspirin EC 81 mg TAB.EC (enteric coated) PO SCH (08:39)
[2020-08-10] MEDS: Nystatin TOP POWDER 15 GM BTL TOPICAL SCH (08:47)
[2020-08-10] MEDS: Insulin GLARGINE 100 un/ml 10 ml VIAL SUBCUT SCH (08:57)
[2020-08-10 09:55] VITALS: BP 107/69
== END 2020-08-10 11:35 | disposition home or self-care (01) | DRG 100 ==
LOC: MED 20:10 → ED 20:10 → MED 08-01 01:04 → ICU 08-02 14:49 → MED 08-03 13:59 → AA 08-04 14:18 → MED 08-04 14:19
PROVIDERS: ADMIT Internal Medicine; ATTEND Internal Medicine

== ENCOUNTER 2020-08-10 14:43 | Inpatient (IN) ==
[2020-08-10] MEDS ORDERED: Lorazepam PYXIS KEY PRN ×2 (14:53→16:59)
[2020-08-10] MEDS ORDERED: LORazepam 2 mg VIAL 1 ml IV PUSH ONE (14:53)
[2020-08-10] MEDS ORDERED: Haloperidol 5 mg/ml SDV IV/IM 5 MG/ML AMP IV SLOW PU ONE (14:53)
[2020-08-10] MEDS ORDERED: Lorazepam PYXIS KEY ONE (14:56)
[2020-08-10] MEDS ORDERED: Haloperidol 5 mg/ml SDV IV/IM 5 MG/ML AMP IM ONE (16:29)
[2020-08-10] MEDS ORDERED: levETIRAcetam 1000MG IVPREMIX 1,000 MG/100 ML BAG IVPB ONE (16:32)
[2020-08-10] MEDS ORDERED: LORazepam 2 mg VIAL 1 ml IM ONE (16:59)
[2020-08-10 18:05] LABS: ABS Basophils 0.1 10^3/ul (0-0.2); ABS Eosinophils 0.6 10^3/ul (0-0.6); ABS Lymphocytes 1.7 10^3/ul (1.0-4.8); ABS Neutrophils 7.9 10^3/ul (1.5-7.7); Eosinophil % 5.5 %; Hematocrit 39 % (35-47); Hemoglobin 12.8 g/dL (12.0-16.0); Lymphocyte % 15.2 %; Mean Corpuscular HGB Conc 33 g/dL (31-36); Mean Corpuscular Hemoglobin 29 pg (27-31); Mean Corpuscular Volume 89 fL (80-97); Mean Platelet Volume 9.6 fL (7.4-10.4); Platelet Count 308 10^3/uL (150-450); Red Cell Distribution Width 15 % (10-15); White Blood Count 11.4 10^3/uL (3.5-10.8)
[2020-08-10 18:26] LABS: Troponin I 0.01 ng/mL (<0.03)
[2020-08-10 18:28] LABS: Albumin 4.1 g/dL (3.2-5.2); Albumin/Globulin Ratio 1.4 (1-3); BUN/Creatinine Ratio 17.4 (8-20); Calcium 9.8 mg/dL (8.6-10.3); EGFR African American 57.7 (>60); EGFR Non-African American 47.7 (>60); Globulin 2.9 g/dL (2-4); Potassium 4.3 mmol/L (3.5-5.0); Total Bilirubin 0.7 mg/dL (0.2-1.0)
[2020-08-10 21:02] LABS: Urine Appearance Cloudy; Urine Bilirubin Negative (Negative); Urine Blood Negative (Negative); Urine Color Yellow; Urine Glucose 1+(50 mg/dL) (Negative); Urine Ketones Trace (Negative); Urine Nitrite Negative (Negative); Urine Protein 2+(100 mg/dL) (Negative); Urine Specific Gravity 1.026 (1.010-1.030); Urine Urobilinogen Negative (Negative)
[2020-08-10 21:11] LABS: C Reactive Protein 10.77 mg/L (<8.01)
[2020-08-10 21:13] LABS: Urine Bacteria 1+ (Absent); Urine Red Blood Cell Absent (Absent); Urine Squamous Epithelial Cell Present (Absent); Urine White Blood Cell Trace(0-5/hpf) (Absent)
[2020-08-10 22:07] LABS: Erythrocyte Sed Rate 38 mm/Hr (0-29)
[2020-08-10] MEDS: Enoxaparin 40 MG/0.4 ML SYR SUBCUT SCH (23:04)
[2020-08-11] MEDS ORDERED: Dextrose 50% Syringe 50 ml 25 GM/50 ML SYRINGE IV PUSH PRN (00:20)
[2020-08-11] MEDS ORDERED: Lorazepam PYXIS KEY PRN (00:25)
[2020-08-11] MEDS ORDERED: LORazepam 2 mg VIAL 1 ml IV PUSH PRN (00:25)
[2020-08-11] MEDS ORDERED: LORazepam 2 mg VIAL 1 ml IV PUSH ONE (02:43)
[2020-08-11] MEDS ORDERED: LORazepam 2 mg VIAL 1 ml ONE (02:47)
[2020-08-11] MEDS: LORazepam 2 mg VIAL 1 ml IV PUSH PRN ×3 (02:52→16:18)
[2020-08-11 06:02] LABS: ABS Basophils 0.1 10^3/ul (0-0.2); ABS Eosinophils 0.8 10^3/ul (0-0.6); ABS Lymphocytes 1.6 10^3/ul (1.0-4.8); ABS Monocytes 1.1 10^3/ul (0-0.8); ABS Neutrophils 6.8 10^3/ul (1.5-7.7); Eosinophil % 7.7 %; Hematocrit 41 % (35-47); Hemoglobin 13.3 g/dL (12.0-16.0); Lymphocyte % 15.2 %; Mean Corpuscular HGB Conc 33 g/dL (31-36); Mean Corpuscular Hemoglobin 29 pg (27-31); Mean Corpuscular Volume 90 fL (80-97); Mean Platelet Volume 9.3 fL (7.4-10.4); Platelet Count 300 10^3/uL (150-450); Red Blood Count 4.53 10^6 /uL (3.70-4.87); Red Cell Distribution Width 15 % (10-15); White Blood Count 10.3 10^3/uL (3.5-10.8)
[2020-08-11 06:15] LABS: BUN/Creatinine Ratio 17.5 (8-20); Calcium 9.8 mg/dL (8.6-10.3); EGFR African American 54.8 (>60); EGFR Non-African American 45.3 (>60)
[2020-08-11 06:38] LABS: Potassium 4.4 mmol/L (3.5-5.0)
[2020-08-11] MEDS ORDERED: Aspirin EC 81 mg TAB.EC (enteric coated) PO SCH (09:00)
[2020-08-11] MEDS: levETIRAcetam LIQ 500 MG/5 ML UDC PO SCH ×2 (14:21→19:41)
[2020-08-11] MEDS: DULoxetine DR 60 mg CAP PO SCH (14:21)
[2020-08-11] MEDS: Enoxaparin 40 MG/0.4 ML SYR SUBCUT SCH (19:41)
[2020-08-12 08:41] LABS: Calcium 9.7 mg/dL (8.6-10.3); Hematocrit 40 % (35-47); Hemoglobin 13.3 g/dL (12.0-16.0); Mean Corpuscular HGB Conc 33 g/dL (31-36); Mean Corpuscular Hemoglobin 29 pg (27-31); Mean Corpuscular Volume 89 fL (80-97); Mean Platelet Volume 9.7 fL (7.4-10.4); Platelet Count 328 10^3/uL (150-450); Potassium 4.4 mmol/L (3.5-5.0); Red Blood Count 4.53 10^6 /uL (3.70-4.87); Red Cell Distribution Width 15 % (10-15); White Blood Count 10.3 10^3/uL (3.5-10.8)
[2020-08-12 08:47] LABS: EGFR African American 51.7 (>60); EGFR Non-African American 42.7 (>60)
[2020-08-12] MEDS: LORazepam 2 mg VIAL 1 ml IV PUSH PRN (11:38)
[2020-08-12] MEDS: levETIRAcetam LIQ 500 MG/5 ML UDC PO SCH (12:19)
[2020-08-12] MEDS: DULoxetine DR 60 mg CAP PO SCH (12:19)
[2020-08-12] MEDS ORDERED: NS 0.9% 1000 ml BAG 1,000 ML IV ONE (14:11)
[2020-08-12] MEDS ORDERED: LORazepam 2 mg VIAL 1 ml IV PUSH PRN (14:16)
[2020-08-12] MEDS: Enoxaparin 40 MG/0.4 ML SYR SUBCUT SCH (22:31)
[2020-08-13 05:44] LABS: BUN/Creatinine Ratio 19.8 (8-20); Calcium 9.4 mg/dL (8.6-10.3); EGFR African American 59.6 (>60); EGFR Non-African American 49.3 (>60); Potassium 3.9 mmol/L (3.5-5.0)
[2020-08-13 06:08] LABS: ABS Eosinophils 0.8 10^3/ul (0-0.6); ABS Lymphocytes 1.3 10^3/ul (1.0-4.8); ABS Monocytes 0.6 10^3/ul (0-0.8); ABS Neutrophils 5.8 10^3/ul (1.5-7.7); Eosinophil % 9.4 %; Hematocrit 40 % (35-47); Hemoglobin 13.4 g/dL (12.0-16.0); Lymphocyte % 14.7 %; Mean Corpuscular HGB Conc 34 g/dL (31-36); Mean Corpuscular Hemoglobin 30 pg (27-31); Mean Corpuscular Volume 89 fL (80-97); Mean Platelet Volume 10.2 fL (7.4-10.4); Platelet Count 286 10^3/uL (150-450); Red Blood Count 4.47 10^6 /uL (3.70-4.87); Red Cell Distribution Width 15 % (10-15); White Blood Count 8.5 10^3/uL (3.5-10.8)
[2020-08-13] MEDS ORDERED: Lorazepam PYXIS KEY PRN (06:16)
[2020-08-13] MEDS ORDERED: LORazepam 2 mg VIAL 1 ml IV PUSH ONE (06:16)
[2020-08-13] MEDS: DULoxetine DR 60 mg CAP PO SCH (11:02)
[2020-08-13] MEDS ORDERED: NS 0.9% 1000 ml BAG 1,000 ML IV ONE (16:34)
[2020-08-13] MEDS: Enoxaparin 40 MG/0.4 ML SYR SUBCUT SCH (19:28)
[2020-08-14] MEDS: DULoxetine DR 60 mg CAP PO SCH (08:32)
[2020-08-14 09:25] LABS: BUN/Creatinine Ratio 24.5 (8-20); Calcium 9.9 mg/dL (8.6-10.3); EGFR African American 59.6 (>60); EGFR Non-African American 49.3 (>60); Potassium 4.1 mmol/L (3.5-5.0)
[2020-08-14] MEDS ORDERED: Lactated Ringers 1000 ml BAG 1,000 ML IV SCH (12:00)
[2020-08-14] MEDS: cefTRIAXone 1 gm/50 mL NS BAG 1 GM/50 ML BAG IVPB SCH (13:21)
[2020-08-14] MEDS ORDERED: Haloperidol 5 mg/ml SDV IV/IM 5 MG/ML AMP IM PRN (15:30)
[2020-08-14] MEDS: Enoxaparin 40 MG/0.4 ML SYR SUBCUT SCH (21:34)
[2020-08-15 07:10] LABS: Calcium 9.5 mg/dL (8.6-10.3); Potassium 4.3 mmol/L (3.5-5.0)
[2020-08-15 07:16] LABS: BUN/Creatinine Ratio 26.4 (8-20); EGFR African American 57.1 (>60); EGFR Non-African American 47.2 (>60)
[2020-08-15] MEDS: DULoxetine DR 60 mg CAP PO SCH (09:32)
[2020-08-15] MEDS: cefTRIAXone 1 gm/50 mL NS BAG 1 GM/50 ML BAG IVPB SCH (12:08)
[2020-08-15] MEDS ORDERED: Haloperidol 5 mg/ml SDV IV/IM 5 MG/ML AMP IM PRN (15:35)
[2020-08-15] MEDS ORDERED: NS 0.9% 1000 ml BAG 1,000 ML IV ONE (15:36)
[2020-08-15] MEDS ORDERED: Haloperidol 5 mg/ml SDV IV/IM 5 MG/ML AMP IV SLOW PU PRN (15:54)
[2020-08-15] MEDS: Enoxaparin 40 MG/0.4 ML SYR SUBCUT SCH (21:08)
[2020-08-16 06:36] LABS: Hematocrit 35 % (35-47); Hemoglobin 11.7 g/dL (12.0-16.0); Mean Corpuscular HGB Conc 33 g/dL (31-36); Mean Corpuscular Hemoglobin 30 pg (27-31); Mean Corpuscular Volume 89 fL (80-97); Mean Platelet Volume 9.9 fL (7.4-10.4); Platelet Count 240 10^3/uL (150-450); Red Blood Count 3.96 10^6 /uL (3.70-4.87); Red Cell Distribution Width 15 % (10-15); White Blood Count 6.5 10^3/uL (3.5-10.8)
[2020-08-16 06:44] LABS: ABS Basophils 0.1 10^3/ul (0-0.2); ABS Eosinophils 0.5 10^3/ul (0-0.6); ABS Lymphocytes 1.4 10^3/ul (1.0-4.8); ABS Monocytes 0.7 10^3/ul (0-0.8); ABS Neutrophils 4.1 10^3/ul (1.5-7.7); Lymphocyte % 20.2 %
[2020-08-16 06:56] LABS: BUN/Creatinine Ratio 25.5 (8-20); Calcium 9.3 mg/dL (8.6-10.3); EGFR African American 59.6 (>60); EGFR Non-African American 49.3 (>60); Potassium 3.6 mmol/L (3.5-5.0)
[2020-08-16] MEDS: DULoxetine DR 60 mg CAP PO SCH (08:20)
[2020-08-16] MEDS ORDERED: Lactated Ringers 1000 ml BAG 1,000 ML IV ONE (11:09)
[2020-08-16] MEDS: cefTRIAXone 1 gm/50 mL NS BAG 1 GM/50 ML BAG IVPB SCH (13:38)
[2020-08-16] MEDS ORDERED: Lactated Ringers 500 ml BAG 500 ML IV ONE (15:00)
[2020-08-16] MEDS: Enoxaparin 40 MG/0.4 ML SYR SUBCUT SCH (20:31)
[2020-08-17 06:31] LABS: BUN/Creatinine Ratio 20.2 (8-20); Calcium 9.2 mg/dL (8.6-10.3); EGFR African American 68.5 (>60); EGFR Non-African American 56.6 (>60); Potassium 3.7 mmol/L (3.5-5.0)
[2020-08-17] MEDS: DULoxetine DR 60 mg CAP PO SCH (08:48)
[2020-08-17] MEDS: Senna TAB 8.6 mg TAB PO SCH ×2 (10:24→20:46)
[2020-08-17] MEDS: cefTRIAXone 1 gm/50 mL NS BAG 1 GM/50 ML BAG IVPB SCH (12:51)
[2020-08-17] MEDS: Enoxaparin 40 MG/0.4 ML SYR SUBCUT SCH (20:47)
[2020-08-17] MEDS ORDERED: Insulin GLARGINE 100 un/ml 10 ml VIAL SUBCUT SCH (21:00)
[2020-08-18] MEDS: Senna TAB 8.6 mg TAB PO SCH ×2 (09:13→22:08)
[2020-08-18] MEDS: DULoxetine DR 60 mg CAP PO SCH (09:13)
[2020-08-18] MEDS ORDERED: Insulin GLARGINE 100 un/ml 10 ml VIAL SUBCUT SCH (16:00)
[2020-08-18] MEDS: Enoxaparin 40 MG/0.4 ML SYR SUBCUT SCH (22:09)
[2020-08-19] MEDS: Insulin GLARGINE 100 un/ml 10 ml VIAL SUBCUT SCH (09:21)
[2020-08-19] MEDS: Senna TAB 8.6 mg TAB PO SCH ×2 (09:22→19:51)
[2020-08-19] MEDS: DULoxetine DR 60 mg CAP PO SCH (09:22)
[2020-08-19] MEDS: Enoxaparin 40 MG/0.4 ML SYR SUBCUT SCH (19:51)
[2020-08-20] MEDS: Insulin GLARGINE 100 un/ml 10 ml VIAL SUBCUT SCH (08:47)
[2020-08-20] MEDS: Senna TAB 8.6 mg TAB PO SCH ×2 (08:47→21:54)
[2020-08-20] MEDS: DULoxetine DR 60 mg CAP PO SCH (08:47)
[2020-08-20] MEDS: Enoxaparin 40 MG/0.4 ML SYR SUBCUT SCH (21:54)
[2020-08-21] MEDS: Insulin GLARGINE 100 un/ml 10 ml VIAL SUBCUT SCH (09:07)
[2020-08-21] MEDS: Senna TAB 8.6 mg TAB PO SCH ×2 (09:08→22:26)
[2020-08-21] MEDS: DULoxetine DR 60 mg CAP PO SCH (09:08)
[2020-08-21] MEDS: Enoxaparin 40 MG/0.4 ML SYR SUBCUT SCH (22:25)
[2020-08-22] MEDS: Insulin GLARGINE 100 un/ml 10 ml VIAL SUBCUT SCH (09:19)
[2020-08-22] MEDS: Senna TAB 8.6 mg TAB PO SCH ×2 (09:19→20:36)
[2020-08-22] MEDS: DULoxetine DR 60 mg CAP PO SCH (09:19)
[2020-08-22 12:57] LABS: ABS Basophils 0.1 10^3/ul (0-0.2); ABS Eosinophils 0.8 10^3/ul (0-0.6); ABS Lymphocytes 1.5 10^3/ul (1.0-4.8); ABS Monocytes 0.7 10^3/ul (0-0.8); ABS Neutrophils 5.4 10^3/ul (1.5-7.7); Eosinophil % 9.6 %; Hematocrit 39 % (35-47); Hemoglobin 13.1 g/dL (12.0-16.0); Lymphocyte % 17.4 %; Mean Corpuscular HGB Conc 33 g/dL (31-36); Mean Corpuscular Hemoglobin 30 pg (27-31); Mean Corpuscular Volume 89 fL (80-97); Mean Platelet Volume 9.8 fL (7.4-10.4); Platelet Count 205 10^3/uL (150-450); Red Cell Distribution Width 15 % (10-15); White Blood Count 8.6 10^3/uL (3.5-10.8)
[2020-08-22 13:13] LABS: Albumin 3.8 g/dL (3.2-5.2); Albumin/Globulin Ratio 1.4 (1-3); BUN/Creatinine Ratio 15.3 (8-20); Calcium 9.5 mg/dL (8.6-10.3); EGFR African American 65.3 (>60); EGFR Non-African American 53.9 (>60); Globulin 2.8 g/dL (2-4); Magnesium 1.9 mg/dL (1.9-2.7); Potassium 3.9 mmol/L (3.5-5.0); Total Bilirubin 0.8 mg/dL (0.2-1.0); Total Protein 6.6 g/dL (6.4-8.9)
[2020-08-22] MEDS: Enoxaparin 40 MG/0.4 ML SYR SUBCUT SCH (20:36)
[2020-08-23] MEDS: Senna TAB 8.6 mg TAB PO SCH ×2 (09:38→20:03)
[2020-08-23] MEDS: DULoxetine DR 60 mg CAP PO SCH (09:41)
[2020-08-23] MEDS: Insulin GLARGINE 100 un/ml 10 ml VIAL SUBCUT SCH (09:43)
[2020-08-23] MEDS: Enoxaparin 40 MG/0.4 ML SYR SUBCUT SCH (20:02)
[2020-08-24] MEDS: Insulin GLARGINE 100 un/ml 10 ml VIAL SUBCUT SCH (08:39)
[2020-08-24] MEDS: Senna TAB 8.6 mg TAB PO SCH (08:40)
[2020-08-24] MEDS: DULoxetine DR 60 mg CAP PO SCH (08:40)
[2020-08-24 09:31] VITALS: BP 111/58
== END 2020-08-24 09:55 | DRG 896 ==
LOC: ED 14:43 → MEDTELE 20:37
PROVIDERS: ADMIT Internal Medicine; ATTEND Internal Medicine

== ENCOUNTER 2020-08-24 07:50 | Inpatient (IN) ==
[2020-08-24] MEDS ORDERED: Senna TAB 8.6 mg TAB PO PRN (11:19)
[2020-08-24] MEDS ORDERED: Dextrose 50% Syringe 50 ml 25 GM/50 ML SYRINGE IV PUSH PRN (11:28)
[2020-08-24] MEDS: D5NS 0.9% 1000 ml BAG 1,000 ML IV SCH (14:15)
[2020-08-24] MEDS: Enoxaparin 30 MG/0.3 ML SYR SUBCUT SCH (21:26)
[2020-08-25] MEDS: D5NS 0.9% 1000 ml BAG 1,000 ML IV SCH ×2 (01:35→17:09)
[2020-08-25 07:38] LABS: ABS Basophils 0.1 10^3/ul (0-0.2); ABS Eosinophils 1.2 10^3/ul (0-0.6); ABS Lymphocytes 1.8 10^3/ul (1.0-4.8); ABS Monocytes 0.9 10^3/ul (0-0.8); ABS Neutrophils 7.1 10^3/ul (1.5-7.7); Eosinophil % 11.2 %; Hematocrit 37 % (35-47); Hemoglobin 12.2 g/dL (12.0-16.0); Lymphocyte % 15.9 %; Mean Corpuscular HGB Conc 33 g/dL (31-36); Mean Corpuscular Hemoglobin 30 pg (27-31); Mean Corpuscular Volume 90 fL (80-97); Mean Platelet Volume 10.6 fL (7.4-10.4); Platelet Count 203 10^3/uL (150-450); Red Blood Count 4.14 10^6 /uL (3.70-4.87); Red Cell Distribution Width 16 % (10-15); White Blood Count 11.2 10^3/uL (3.5-10.8)
[2020-08-25 07:55] LABS: Albumin 3.8 g/dL (3.2-5.2); Albumin/Globulin Ratio 1.3 (1-3); BUN/Creatinine Ratio 27.4 (8-20); Calcium 9.3 mg/dL (8.6-10.3); EGFR African American 53.2 (>60); Globulin 2.9 g/dL (2-4); Potassium 3.9 mmol/L (3.5-5.0); Total Bilirubin 0.8 mg/dL (0.2-1.0); Total Protein 6.7 g/dL (6.4-8.9)
[2020-08-25] MEDS: Aspirin EC 81 mg TAB.EC (enteric coated) PO SCH (08:14)
[2020-08-25] MEDS: DULoxetine DR 60 mg CAP PO SCH (08:18)
[2020-08-25] MEDS: Insulin GLARGINE 100 un/ml 10 ml VIAL SUBCUT SCH (08:30)
[2020-08-25 15:26] LABS: Urine Appearance Turbid; Urine Bacteria 2+ (Absent); Urine Bilirubin Negative (Negative); Urine Blood Negative (Negative); Urine Color Yellow; Urine Glucose 2+(150 mg/dL) (Negative); Urine Ketones Negative (Negative); Urine Nitrite Negative (Negative); Urine Protein 2+(100 mg/dL) (Negative); Urine Red Blood Cell 1+(3-5/hpf) (Absent); Urine Specific Gravity 1.025 (1.010-1.030); Urine Squamous Epithelial Cell Present (Absent); Urine Urobilinogen Positive (Negative); Urine White Blood Cell 3+(>20/hpf) (Absent)
[2020-08-25] MEDS: Enoxaparin 30 MG/0.3 ML SYR SUBCUT SCH (22:45)
[2020-08-26] MEDS: Aspirin EC 81 mg TAB.EC (enteric coated) PO SCH (07:30)
[2020-08-26] MEDS: DULoxetine DR 60 mg CAP PO SCH (07:32)
[2020-08-26] MEDS: Insulin GLARGINE 100 un/ml 10 ml VIAL SUBCUT SCH (07:41)
[2020-08-26] MEDS: Enoxaparin 30 MG/0.3 ML SYR SUBCUT SCH (20:18)
[2020-08-27] MEDS: Aspirin EC 81 mg TAB.EC (enteric coated) PO SCH (10:03)
[2020-08-27] MEDS: DULoxetine DR 60 mg CAP PO SCH (10:03)
[2020-08-27] MEDS: Insulin GLARGINE 100 un/ml 10 ml VIAL SUBCUT SCH (10:04)
[2020-08-27] MEDS: Enoxaparin 30 MG/0.3 ML SYR SUBCUT SCH (19:55)
[2020-08-28] MEDS: DULoxetine DR 60 mg CAP PO SCH (08:47)
[2020-08-28] MEDS: Aspirin EC 81 mg TAB.EC (enteric coated) PO SCH (08:47)
[2020-08-28] MEDS: Insulin GLARGINE 100 un/ml 10 ml VIAL SUBCUT SCH (09:59)
[2020-08-28] MEDS: Enoxaparin 30 MG/0.3 ML SYR SUBCUT SCH (21:40)
[2020-08-29] MEDS: Aspirin EC 81 mg TAB.EC (enteric coated) PO SCH (07:57)
[2020-08-29] MEDS: DULoxetine DR 60 mg CAP PO SCH (07:57)
[2020-08-29] MEDS: Insulin GLARGINE 100 un/ml 10 ml VIAL SUBCUT SCH (08:06)
[2020-08-29] MEDS: Enoxaparin 30 MG/0.3 ML SYR SUBCUT SCH (21:31)
[2020-08-30] MEDS: Insulin GLARGINE 100 un/ml 10 ml VIAL SUBCUT SCH (11:07)
[2020-08-30] MEDS: Aspirin EC 81 mg TAB.EC (enteric coated) PO SCH (11:08)
[2020-08-30] MEDS: DULoxetine DR 60 mg CAP PO SCH (11:09)
[2020-08-30] MEDS: Enoxaparin 30 MG/0.3 ML SYR SUBCUT SCH (21:38)
[2020-08-31] MEDS: Aspirin EC 81 mg TAB.EC (enteric coated) PO SCH (08:48)
[2020-08-31] MEDS: DULoxetine DR 60 mg CAP PO SCH (08:49)
[2020-08-31] MEDS: Insulin GLARGINE 100 un/ml 10 ml VIAL SUBCUT SCH (09:00)
[2020-08-31] MEDS: Enoxaparin 30 MG/0.3 ML SYR SUBCUT SCH (20:52)
[2020-09-01 06:09] LABS: ABS Basophils 0.1 10^3/ul (0-0.2); ABS Eosinophils 1.3 10^3/ul (0-0.6); ABS Lymphocytes 1.9 10^3/ul (1.0-4.8); ABS Monocytes 0.7 10^3/ul (0-0.8); ABS Neutrophils 5.5 10^3/ul (1.5-7.7); Eosinophil % 13.2 %; Hematocrit 36 % (35-47); Hemoglobin 11.8 g/dL (12.0-16.0); Lymphocyte % 20.3 %; Mean Corpuscular HGB Conc 33 g/dL (31-36); Mean Corpuscular Hemoglobin 30 pg (27-31); Mean Corpuscular Volume 91 fL (80-97); Mean Platelet Volume 10.2 fL (7.4-10.4); Nucleated Red Blood Cells % 0.1; Platelet Count 229 10^3/uL (150-450); Red Blood Count 3.94 10^6 /uL (3.70-4.87); Red Cell Distribution Width 16 % (10-15); White Blood Count 9.5 10^3/uL (3.5-10.8)
[2020-09-01 06:37] LABS: Albumin 3.7 g/dL (3.2-5.2); Albumin/Globulin Ratio 1.4 (1-3); BUN/Creatinine Ratio 24.3 (8-20); Calcium 9.2 mg/dL (8.6-10.3); EGFR African American 43.2 (>60); EGFR Non-African American 35.7 (>60); Globulin 2.7 g/dL (2-4); Potassium 4.5 mmol/L (3.5-5.0); Total Bilirubin 0.7 mg/dL (0.2-1.0); Total Protein 6.4 g/dL (6.4-8.9)
[2020-09-01] MEDS: Aspirin EC 81 mg TAB.EC (enteric coated) PO SCH (09:13)
[2020-09-01] MEDS: DULoxetine DR 60 mg CAP PO SCH (10:30)
[2020-09-01] MEDS: Insulin GLARGINE 100 un/ml 10 ml VIAL SUBCUT SCH (10:37)
[2020-09-01] MEDS: Enoxaparin 30 MG/0.3 ML SYR SUBCUT SCH (21:44)
[2020-09-02] MEDS: Aspirin EC 81 mg TAB.EC (enteric coated) PO SCH (08:07)
[2020-09-02] MEDS: Insulin GLARGINE 100 un/ml 10 ml VIAL SUBCUT SCH (08:07)
[2020-09-02] MEDS: DULoxetine DR 60 mg CAP PO SCH (08:07)
[2020-09-02] MEDS: Enoxaparin 30 MG/0.3 ML SYR SUBCUT SCH (20:47)
[2020-09-03] MEDS: Insulin GLARGINE 100 un/ml 10 ml VIAL SUBCUT SCH (08:35)
[2020-09-03] MEDS: Aspirin EC 81 mg TAB.EC (enteric coated) PO SCH (08:40)
[2020-09-03] MEDS: DULoxetine DR 60 mg CAP PO SCH (08:47)
[2020-09-03] MEDS: Enoxaparin 30 MG/0.3 ML SYR SUBCUT SCH (20:05)
[2020-09-04] MEDS: DULoxetine DR 60 mg CAP PO SCH (08:08)
[2020-09-04] MEDS: Aspirin EC 81 mg TAB.EC (enteric coated) PO SCH (08:08)
[2020-09-04] MEDS: Insulin GLARGINE 100 un/ml 10 ml VIAL SUBCUT SCH (09:31)
[2020-09-04] MEDS: Enoxaparin 30 MG/0.3 ML SYR SUBCUT SCH (20:57)
[2020-09-05] MEDS: Aspirin EC 81 mg TAB.EC (enteric coated) PO SCH (12:19)
[2020-09-05] MEDS: DULoxetine DR 60 mg CAP PO SCH (12:19)
[2020-09-05] MEDS: Insulin GLARGINE 100 un/ml 10 ml VIAL SUBCUT SCH (12:20)
[2020-09-05] MEDS ORDERED: NS 0.9% 1000 ml BAG 1,000 ML IV SCH (15:00)
[2020-09-05] MEDS: Enoxaparin 30 MG/0.3 ML SYR SUBCUT SCH (20:27)
[2020-09-06 06:28] VITALS: BP 141/54
[2020-09-06] MEDS: Aspirin EC 81 mg TAB.EC (enteric coated) PO SCH (08:31)
[2020-09-06] MEDS: Insulin GLARGINE 100 un/ml 10 ml VIAL SUBCUT SCH (08:37)
[2020-09-06] MEDS: DULoxetine DR 60 mg CAP PO SCH (08:45)
== END 2020-09-06 12:00 | DRG 72 ==
LOC: PMRU 10:03
PROVIDERS: ADMIT Physical Medicine & Rehabilitation; ATTEND Physical Medicine & Rehabilitation

== ENCOUNTER 2022-08-30 05:35 | Inpatient (IN) ==
[2022-08-30] MEDS ORDERED: Lactated Ringers 1000 ml BAG 1,000 ML IV ONE (06:10)
[2022-08-30 06:36] LABS: ABS Eosinophils 0.1 10^3/ul (0-0.6); ABS Monocytes 0.8 10^3/ul (0-0.8); Eosinophil % 0.3 %; Hematocrit 40 % (35-47); Hemoglobin 12.5 g/dL (12.0-16.0); Mean Corpuscular HGB Conc 32 g/dL (31-36); Mean Corpuscular Hemoglobin 29 pg (27-31); Mean Corpuscular Volume 91 fL (80-97); Mean Platelet Volume 9.3 fL (7.4-10.4); Platelet Count 259 10^3/uL (150-450); Red Blood Count 4.37 10^6 /uL (3.70-4.87); Red Cell Distribution Width 15 % (10-15); White Blood Count 16.9 10^3/uL (3.5-10.8)
[2022-08-30] MEDS ORDERED: Cefepime 2 GM in Dextrose 2 GM/50 ML BAG IV ONE (06:41)
[2022-08-30] MEDS ORDERED: Lactated Ringers SEPSIS* BAG 3,130 ML IV ONE (06:42)
[2022-08-30 07:09] LABS: Albumin 4.1 g/dL (3.2-5.2); Calcium 8.8 mg/dL (8.6-10.3); Total Bilirubin 0.5 mg/dL (0.2-1.0)
[2022-08-30 07:15] LABS: Albumin/Globulin Ratio 1.7 (1-3); Globulin 2.4 g/dL (2-4); Total Protein 6.5 g/dL (6.4-8.9); eGFR CKD-EPI 30.8 (>60)
[2022-08-30 08:13] LABS: High Sensitivity Troponin 1 Hr 181 pg/mL (<15)
[2022-08-30 08:35] LABS: Urine Appearance Clear; Urine Bilirubin Negative (Negative); Urine Blood Negative (Negative); Urine Color Straw; Urine Glucose 3+(>=500 mg/dL) (Negative); Urine Ketones Negative (Negative); Urine Nitrite Negative (Negative); Urine Protein Negative (Negative); Urine Specific Gravity 1.011 (1.002-1.030); Urine Urobilinogen Negative (Negative)
[2022-08-30] MEDS ORDERED: Sodium Phosphate ADULT ENEMA 133 ML BTL PR PRN (10:05)
[2022-08-30] MEDS ORDERED: Dextrose 50% Syringe 50 ml 25 GM/50 ML SYRINGE IV PUSH PRN ×2 (10:07→10:25)
[2022-08-30] MEDS ORDERED: NS 0.9% 1000 ml BAG 1,000 ML IV SCH (10:15)
[2022-08-30] MEDS ORDERED: Enoxaparin 40 MG/0.4 ML SYR SUBCUT SCH (11:00)
[2022-08-30] MEDS: Enoxaparin 30 MG/0.3 ML SYR SUBCUT SCH (11:26)
[2022-08-30 11:35] LABS: C Reactive Protein 11.71 mg/L (<8.01)
[2022-08-30 13:25] LABS: TSH Ultra Thyroid Stim Horm 15.12 mcIU/mL (0.34-5.60)
[2022-08-30] MEDS ORDERED: Sulfur Hexaflouride MICROSPHR 25 MG VIAL ONE (15:33)
[2022-08-30] MEDS: Insulin GLARGINE 100 un/ml 10 ml VIAL SUBCUT SCH (21:14)
[2022-08-31 06:01] LABS: ABS Basophils 0.1 10^3/ul (0-0.2); ABS Eosinophils 0.2 10^3/ul (0-0.6); ABS Lymphocytes 1.6 10^3/ul (1.0-4.8); ABS Monocytes 0.6 10^3/ul (0-0.8); ABS Neutrophils 6.3 10^3/ul (1.5-7.7); Eosinophil % 2.3 %; Hematocrit 33 % (35-47); Hemoglobin 10.8 g/dL (12.0-16.0); Lymphocyte % 17.9 %; Mean Corpuscular HGB Conc 33 g/dL (31-36); Mean Corpuscular Hemoglobin 30 pg (27-31); Mean Corpuscular Volume 90 fL (80-97); Mean Platelet Volume 9.2 fL (7.4-10.4); Platelet Count 216 10^3/uL (150-450); Red Blood Count 3.66 10^6 /uL (3.70-4.87); Red Cell Distribution Width 14 % (10-15); White Blood Count 8.7 10^3/uL (3.5-10.8)
[2022-08-31 06:20] LABS: Calcium 8.5 mg/dL (8.6-10.3); Potassium 4.4 mmol/L (3.5-5.0); eGFR CKD-EPI 39.8 (>60)
[2022-08-31] MEDS: Aspirin EC 81 mg TAB.EC (enteric coated) PO SCH (08:37)
[2022-08-31] MEDS: DULoxetine DR 30 mg CAP PO SCH (08:37)
[2022-08-31] MEDS: Enoxaparin 30 MG/0.3 ML SYR SUBCUT SCH (11:32)
[2022-08-31] MEDS: Insulin GLARGINE 100 un/ml 10 ml VIAL SUBCUT SCH (21:38)
[2022-09-01 09:07] VITALS: BP 143/57
[2022-09-01] MEDS: Aspirin EC 81 mg TAB.EC (enteric coated) PO SCH (10:17)
[2022-09-01] MEDS: DULoxetine DR 30 mg CAP PO SCH (10:17)
[2022-09-01] MEDS: Enoxaparin 30 MG/0.3 ML SYR SUBCUT SCH (10:20)
== END 2022-09-01 12:10 | DRG 100 ==
LOC: ED 05:35 → EDHOLD 08:45 → SUATTDRO 08:45 → EDHOLD 16:22 → MEDTELE 16:41
PROVIDERS: ADMIT Internal Medicine; ATTEND Internal Medicine